=== PATIENT | male | born 1955 | race Caucasian/White ===

== ENCOUNTER 2016-09-30 11:04 | Inpatient (IN) | payer OTHER, MEDICAID ==
--- NOTE | 2016-09-30 11:26 | DR.H&P ---
H&P - History & Physical for Day of: H&P Date: 09/30/16 - Chief Complaint Chief Complaint: ABDOMINAL PAIN, OPEN WOUND DRAINING - Allergies Allergies/Adverse Reactions: Allergies Allergy/AdvReac Type Severity Reaction Status Date / Time MS No Known Drug Allergy Allergy Verified 11/18/13 07:37 [No Known Drug Allergy] - History of Present Illness History of Present Illness: 61 WM DIRECT ADMIT FROM DR HOFFMAN OFFICE WITH CO ABDOMINAL PAIN WITH TWO SMALL ABSCESSES ALONG OLD SURGICAL SCAR. PT HAS TAKEN 2 ROUND OF BACTRIM SINCE JULY WITHOUT IMPROVEMENT. PT HAS PMH OF COPD, DM HTN, CAD , OA, CHF, GERD. PLAN TO ADMIT TO R/O ABDOMINAL WALL ABSCESS, PAIN CONTROL AND IV ATBX THERAPY, BLOOD AND WOUND CULTURES ON ADMISSION - Past Medical History Past Medical History: Angina, Anxiety, Asthma, COPD, Depression, Diabetes, Dyslipidemia, GERD, Hypertension, [place] - Past Surgical History Surgical History: Abdominal Surgery - Family History Family Medical History: Diabetes Mellitus, Cancer, Hypertension - Social History Does patient currently use any type of tobacco product: Yes Have you used tobacco products in the last 12 months: Yes Type of Tobacco Use: Cigarettes Does any household member use tobacco: Yes Alcohol Use: None Drug Use: None - Review of Systems Constitutional: Chills, Sweats, Malaise Eyes: No Symptoms Reported ENT: No Symptoms Reported Respiratory: Wheezing Cardiovascular: No Symptoms Reported Gastrointestinal: Nausea, Abdominal Pain Genitourinary: No Symptoms Reported Musculoskeletal: Back Pain, Leg Pain Skin: Wound Neurological: No Symptoms Reported - Physical Exam Vital Signs: Blood Pressure [Right Arm] 145/76 Blood Pressure 145/76 Oriented: Normal Eyes: Normal Ear: Normal Nose: Normal Throat: Normal Respiratory: RLL Exp. Wheeze, LLL Exp. Wheeze Cardiovascular: Normal, Edema (MILD + 1EDEMA) : Normal Auscultation: Bowel Sounds: Normal Tenderness: Diffuse Skin: Wound ( 2 OPEN WOUNDS MIDLINE ALONG OLD SURGICAL SCAR WITH DIFFUSE REDNESS AND THICK PURULENT DC) Musculoskeletal: Leg, Back:Thoracic, Back:Lumbar Mood Description: Calm Speech Pattern: Clear, Appropriate - Assessment/Plan (1) Abdominal wall abscess Status: Acute Plan: ADMIT, IV ATBX, WOUND AND BLOOD CULTURES. CT ABD PELVIS WITH CONTRAST R/ O DEEP ABDOMINAL WALL ABSCESS. ADMISSION LABS, CXR. IV HYDRATION (2) Abdominal pain Qualifiers: Abdominal location: A Status: Acute (3) COPD (chronic obstructive pulmonary disease) Qualifiers: COPD type: C Chronic bronchitis type: C Emphysema type: E Status: Chronic (4) Diabetes mellitus Qualifiers: Diabetes mellitus type: D Diabetes mellitus complication status: D Diabetes mellitus complication detail: D Diabetic retinopathy severity: D Proliferative retinopathy type: P Diabetes mellitus macular edema: D Diabetes mellitus continuous churn buttermaker insulin use: D Laterality: L Chronic kidney disease stage: C Status: Chronic (5) GERD (gastroesophageal reflux disease) Qualifiers: Esophagitis presence: E Status: Chronic (6) Hyperlipidemia Qualifiers: Hyperlipidemia type: H Status: Chronic (7) Hypertension Qualifiers: Hypertension type: H Status: Chronic
[2016-09-30 12:35] LABS: BASOPHILS # (AUTO) 0.1 X10^3/uL (0.0-0.1); BASOPHILS % (AUTO) 0.8 % (0.2-1.0); EOSINOPHILS # (AUTO) 0.1 x10^3/uL (0.0-0.2); EOSINOPHILS % (AUTO) 1.1 % (0.9-2.9); HEMATOCRIT 42.7 % (42.0-54.0); HEMOGLOBIN 14.8 g/dL (13.5-18.0); LYMPHOCYTES % (AUTO) 18.8 % (21.0-51.0); MEAN CORPUSCULAR HEMOGLOBIN 30.1 pg (27.0-34.0); MEAN CORPUSCULAR HGB CONC 34.8 g/dL (33.0-35.0); MEAN CORPUSCULAR VOLUME 86.6 fL (80.0-100.0); MEAN PLATELET VOLUME 7.9 fL (7.4-11.0); MONOCYTES # (AUTO) 0.8 x10^3/uL (0.3-0.8); MONOCYTES % (AUTO) 7.1 % (0.0-13.0); NEUTROPHILS # (AUTO) 7.8 x10^3/uL (2.2-4.8); NEUTROPHILS % (AUTO) 72.2 % (42.0-75.0); PLATELET COUNT 202 X10^3/uL (150.0-450.0); RED BLOOD COUNT 4.93 X10^6/uL (4.7-6.0); RED CELL DISTRIBUTION WIDTH 14.3 % (11.6-16.5); WHITE BLOOD COUNT 10.8 X10^3/uL (3.6-10.0)
[2016-09-30 12:46] LABS: ALANINE AMINOTRANSFERASE 28 Units/L (12-78); ALBUMIN 3.2 g/dL (3.4-5.0); ALKALINE PHOSPHATASE 87 Units/L (46-116); ASPARTATE AMINO TRANSFERASE 17 Units/L (15-37); BLOOD UREA NITROGEN 13 mg/dL (7-18); CALCIUM 8.7 mg/dL (8.5-10.1); CARBON DIOXIDE 29.4 mmol/L (21-32); CHLORIDE 102 mmol/L (98-107); COR CA(FOR HYPOALB) 9.3 mg/dL (8.5-10.1); COR NA(FOR HYPERGLY) 141 mmol/L (136-145); CREATININE 0.93 mg/dL (0.70-1.30); GLUCOSE 134 mg/dL (65-99); MAGNESIUM 1.5 mg/dL (1.7-2.9); SODIUM 140 mmol/L (136-145); TOTAL PROTEIN 7.4 g/dL (6.4-8.2); eGFR BLACK RACES > 60 (>60); eGFR NON BLACK RACES > 60 (>60)
[2016-09-30 12:56] VITALS: BMI 32.9
[2016-09-30] MEDS ORDERED: NS 100 ML IV 100 ML IV ONE (16:41)
--- NOTE | 2016-09-30 17:33 | RAD ---
HISTORY: CHF, COPD. Study: Portable chest. Comparison: PA and lateral chest dated February 13, 2014. Findings: Patient is status post CABG. The cardiac silhouette otherwise appears normal. Chronic emphysematous changes. No focal consolidation, pleural effusion, or pneumothorax. The osseous structures appear un changed. IMPRESSION: 1. No acute cardiopulmonary disease. Reported By:
[2016-09-30] MEDS: SNACK - Diabetic Appropriate PO SCH (22:19)
[2016-10-01 01:08] LABS: BILIRUBIN,URINE NEGATIVE (NEGATIVE); BLOOD/HEMOGLOBIN,URINE 2+ (NEGATIVE); GLUCOSE, URINE NEGATIVE (NEGATIVE); KETONES,URINE NEGATIVE (NEGATIVE); LEUKOCYTE ESTERASE ,URINE NEGATIVE (NEGATIVE); NITRITES,URINE NEGATIVE (NEGATIVE); PROTEIN,URINE 2+ (NEGATIVE); UROBILINOGEN,URINE 1+ (NORMAL)
[2016-10-01 01:22] LABS: APPEARANCE,URINE CLEAR (CLEAR); BACTERIA,URINE TRACE /HPF (NEGATIVE); COLOR,URINE YELLOW (YELLOW); RBC,URINE 0-3 /HPF (NEGATIVE); SQUAMOUS EPITHELIAL CELL,UR FEW /HPF (NEGATIVE)
[2016-10-01 05:36] LABS: BASOPHILS % (AUTO) 0.9 % (0.2-1.0); EOSINOPHILS % (AUTO) 1.9 % (0.9-2.9); HEMATOCRIT 42.8 % (42.0-54.0); HEMOGLOBIN 14.4 g/dL (13.5-18.0); LYMPHOCYTES % (AUTO) 25.7 % (21.0-51.0); MEAN CORPUSCULAR HEMOGLOBIN 29.9 pg (27.0-34.0); MEAN CORPUSCULAR HGB CONC 33.6 g/dL (33.0-35.0); MEAN PLATELET VOLUME 8.4 fL (7.4-11.0); NEUTROPHILS % (AUTO) 65.5 % (42.0-75.0); PLATELET COUNT 205 X10^3/uL (150.0-450.0); RED BLOOD COUNT 4.81 X10^6/uL (4.7-6.0); RED CELL DISTRIBUTION WIDTH 14.4 % (11.6-16.5); WHITE BLOOD COUNT 11.6 X10^3/uL (3.6-10.0)
[2016-10-01 05:37] LABS: BASOPHILS # (AUTO) 0.1 X10^3/uL (0.0-0.1); EOSINOPHILS # (AUTO) 0.2 x10^3/uL (0.0-0.2); MONOCYTES # (AUTO) 0.7 x10^3/uL (0.3-0.8); NEUTROPHILS # (AUTO) 7.6 x10^3/uL (2.2-4.8)
[2016-10-01 05:43] LABS: ALANINE AMINOTRANSFERASE 26 Units/L (12-78); ALBUMIN 3.1 g/dL (3.4-5.0); ALKALINE PHOSPHATASE 85 Units/L (46-116); ASPARTATE AMINO TRANSFERASE 17 Units/L (15-37); BLOOD UREA NITROGEN 12 mg/dL (7-18); CALCIUM 8.4 mg/dL (8.5-10.1); CARBON DIOXIDE 32.1 mmol/L (21-32); CHLORIDE 101 mmol/L (98-107); COR CA(FOR HYPOALB) 9.1 mg/dL (8.5-10.1); COR NA(FOR HYPERGLY) 141 mmol/L (136-145); CREATININE 0.95 mg/dL (0.70-1.30); GLUCOSE 174 mg/dL (65-99); SODIUM 139 mmol/L (136-145); eGFR BLACK RACES > 60 (>60); eGFR NON BLACK RACES > 60 (>60)
[2016-10-01] MEDS ORDERED: LEVAQUIN PREMIX IV 500 MG 500 MG/100 ML BAG IV ONE (08:36)
[2016-10-01] MEDS ORDERED: ZOFRAN INJ 4 MG VIAL IVP PRN (12:43)
[2016-10-01] MEDS ORDERED: FLEXERIL TAB 10 MG PO PRN (12:49)
[2016-10-01] MEDS ORDERED: AMBIEN PO PRN (12:51)
[2016-10-01] MEDS: HumuLIN R SUBCUT PRN ×3 (13:00→20:20)
[2016-10-01] MEDS ORDERED: NS 100 ML IV + SPIKE MINIBAG* 100 ML IV ONE ×2 (13:14→21:30)
--- NOTE | 2016-10-01 13:14 | CT ---
HISTORY: 61-year-old male with abdominal pain. exam is to evaluate for abdominal wall abscess. Study: CT abdomen and pelvis with contrast Comparison: Abdominal radiograph November 19, 2013 Technique: Multiple axial images of the abdomen and pelvis were obtained from the lung bases to the pubic symph ysis after/ without/ both prior to and after the administration of IV contrast. Dose reduction tech niques including Automated Exposure Control (AEC) and adjustment of mA and kV were utilized. Findings: Visualized lung bases appear clear. There is no significant pleural or pericardial effusion. Mild de generative changes are noted of the imaged thoracolumbar spine. No focal aggressive osseous lesion i s seen. There is a large ventral abdominal wall hernia which contains portions of the stomach, left hepatic lobe as well as multiple nonobstructed loops of large as well as small bowel. No associated fluid co llection is identified. Mild colonic diverticulosis is present. The GI tract is otherwise unremarkab le. The liver, gallbladder, spleen, pancreas (mild fatty atrophy), adrenals and kidneys are unremarkable . There is mild atherosclerotic calcification of the nonaneurysmal aortoiliac system. The urinary bl adder is normal. The prostate is mildly enlarged. There is no free fluid, free air or lymphadenopath y. IMPRESSION: Large ventral abdominal wall hernia containing portions of the left hepatic lobe and multiple loops of large as well as small bowel. There is no current evidence of bowel obstruction/ischemia or assoc iated fluid collection to suggest abscess. Mild prostatomegaly, uncomplicated colonic diverticulosis and additional ancillary findings as detseth led above. Reported By:
[2016-10-01] MEDS: ZOSYN VIAL 3.375 GM IV SCH ×2 (13:48→21:58)
[2016-10-01] MEDS ORDERED: MORPHINE SULFATE INJ 2 MG IVP PRN (14:20)
--- NOTE | 2016-10-01 14:25 | PCM.PROG ---
Progress Note - Progress Note for Day of Date: 10/01/16 - Subjective Subjective: CONTINUE CO ABDOMINAL PAIN WITH SUPERFICIAL ABSCESSES, CULTURE PENDING. PT ON IV ATBX, PT HAD CT SCAN ON ADMISSION REVEALED LARGE COMPLICATED VENTRAL HERNIA, DISCUSSED SURGICAL OPTIONS OP SINCE NOT OBSTRUCTED. WILL CONTINUE IV LEVAQUIN AND ZOSYN, REPEAT AM LABS, D/C PENDING WOUND CULTURE RESULTS - Past Medical Family Social History Past Med/Fam/Surg Hx: No changes since H&P Allergies: Allergies adhesive tape Allergy (Verified 09/30/16 12:08) - Review of Systems ROS: No change since H&P - Vital Signs and I&O's Vital Signs: Temperature 98.3 F Pulse Rate [Right Brachial] 70 Respiratory Rate 20 Blood Pressure [Right Arm] 122/62 Blood Pressure 145/76 O2 Sat by Pulse Oximetry 94 Intake and Output: Intake & Output 09/29/16 09/30/16 10/01/16 10/02/16 11:59 11:59 11:59 11:59 Intake Total 460 Balance 460 - Physical Exam Oriented: Normal Eyes: Normal Ear: Normal Nose: Normal Throat: Normal Cardiovascular: Normal, Edema (MILD + 1EDEMA) : Normal Auscultation: Bowel Sounds: Normal Palpation: Other (LARGE VENTRAL HERNIA) Tenderness: Diffuse Skin: Wound ( 2 OPEN WOUNDS MIDLINE ALONG OLD SURGICAL SCAR WITH DIFFUSE REDNESS AND THICK PURULENT DC) Musculoskeletal: Leg, Back:Thoracic, Back:Lumbar Mood Description: Calm Speech Pattern: Clear, Appropriate - Laboratory and Diagnostics Result Diagrams: 10/01/16 03:05 10/01/16 03:05 Labs: 09/30/16 12:16 Abdomen Gram Stain - Final 09/30/16 12:16 Abdomen Wound Culture - Preliminary Laboratory WBC 11.6 X10^3/uL (3.6-10.0) H 10/01/16 03:05 RBC 4.81 X10^6/uL (4.7-6.0) 10/01/16 03:05 Hgb 14.4 g/dL (13.5-18.0) 10/01/16 03:05 Hct 42.8 % (42.0-54.0) 10/01/16 03:05 MCV 89.0 fL (80.0-100.0) 10/01/16 03:05 MCH 29.9 pg (27.0-34.0) 10/01/16 03:05 MCHC 33.6 g/dL (33.0-35.0) 10/01/16 03:05 RDW 14.4 % (11.6-16.5) 10/01/16 03:05 Plt Count 205 X10^3/uL (150.0-450.0) 10/01/16 03:05 MPV 8.4 fL (7.4-11.0) 10/01/16 03:05 Neut % 65.5 % (42.0-75.0) 10/01/16 03:05 Lymph % 25.7 % (21.0-51.0) 10/01/16 03:05 [place] % 6.0 % (0.0-13.0) 10/01/16 03:05 Eos % 1.9 % (0.9-2.9) 10/01/16 03:05 Baso % 0.9 % (0.2-1.0) 10/01/16 03:05 Neut # 7.6 x10^3/uL (2.2-4.8) H 10/01/16 03:05 Lymph # 3.0 X10^3/uL (1.3-2.9) H 10/01/16 03:05 [place] # 0.7 x10^3/uL (0.3-0.8) 10/01/16 03:05 Eos # 0.2 x10^3/uL (0.0-0.2) 10/01/16 03:05 Baso # 0.1 X10^3/uL (0.0-0.1) 10/01/16 03:05 Absolute Nucleated RBC 0.1 /100WBC 10/01/16 03:05 Sodium 139 mmol/L (136-145) 10/01/16 03:05 Corrected Sodium 141 mmol/L (136-145) 10/01/16 03:05 Potassium 4.2 mmol/L (3.5-5.1) 10/01/16 03:05 Chloride 101 mmol/L (98-107) 10/01/16 03:05 Carbon Dioxide 32.1 mmol/L (21-32) H 10/01/16 03:05 BUN 12 mg/dL (7-18) 10/01/16 03:05 Creatinine 0.95 mg/dL (0.70-1.30) 10/01/16 03:05 Est GFR (MDRD) Af Amer > 60 (>60) 10/01/16 03:05 Est GFR (MDRD) Non-Af > 60 (>60) 10/01/16 03:05 Glucose 174 mg/dL (65-99) H 10/01/16 03:05 Calcium 8.4 mg/dL (8.5-10.1) L 10/01/16 03:05 Corrected Calcium 9.1 mg/dL (8.5-10.1) 10/01/16 03:05 Magnesium 1.5 mg/dL (1.7-2.9) L 09/30/16 12:18 Total Bilirubin 0.50 mg/dL (0.2-1.0) 10/01/16 03:05 AST 17 Units/L (15-37) 10/01/16 03:05 ALT 26 Units/L (12-78) 10/01/16 03:05 Alkaline Phosphatase 85 Units/L (46-116) 10/01/16 03:05 Total Protein 7.0 g/dL (6.4-8.2) 10/01/16 03:05 Albumin 3.1 g/dL (3.4-5.0) L 10/01/16 03:05 Globulin 3.9 g/dL (2.5-4.5) 10/01/16 03:05 Albumin/Globulin Ratio 0.8 Ratio (1.1-2.1) L 10/01/16 03:05 Specimen Type Catherized urine 10/01/16 00:06 Urine Color Yellow (YELLOW) 10/01/16 00:06 Urine Appearance Clear (CLEAR) 10/01/16 00:06 Urine pH 6.0 (5.0 - 8.0) 10/01/16 00:06 Ur Specific [place] 1.015 (1.000-1.030) 10/01/16 00:06 Urine Protein 2+ (NEGATIVE) 10/01/16 00:06 Urine Glucose (UA) Negative (NEGATIVE) 10/01/16 00:06 Urine Ketones Negative (NEGATIVE) 10/01/16 00:06 Urine Occult Blood 2+ (NEGATIVE) 10/01/16 00:06 Urine Nitrite Negative (NEGATIVE) 10/01/16 00:06 Urine Bilirubin Negative (NEGATIVE) 10/01/16 00:06 Urine Urobilinogen 1+ (NORMAL) 10/01/16 00:06 Ur Leukocyte Esterase Negative (NEGATIVE) 10/01/16 00:06 Urine RBC 0-3 /HPF (NEGATIVE) 10/01/16 00:06 Urine WBC 0-3 /HPF (NEGATIVE) 10/01/16 00:06 Ur Squamous Epith Cells Few /HPF (NEGATIVE) 10/01/16 00:06 Urine Bacteria Trace /HPF (NEGATIVE) 10/01/16 00:06 Ur Culture Indicated? Yes/culture set up 10/01/16 00:06 - Plan (1) Abdominal wall abscess Status: Acute Plan: CONTINUE ABDOMINAL WOUND CARE, IV ATBX (2) Abdominal pain Status: Acute Qualifiers: Abdominal location: A Plan: SEE CT REPORT, DISCUSSED SURGICAL REFERRAL (3) COPD (chronic obstructive pulmonary disease) Status: Chronic Qualifiers: COPD type: C Chronic bronchitis type: C Emphysema type: E (4) Diabetes mellitus Status: Chronic Qualifiers: Diabetes mellitus type: D Diabetes mellitus complication status: D Diabetes mellitus complication detail: D Diabetic retinopathy severity: D Proliferative retinopathy type: P Diabetes mellitus macular edema: D Diabetes mellitus fdc insulin use: D Laterality: L Chronic kidney disease stage: C (5) GERD (gastroesophageal reflux disease) Status: Chronic Qualifiers: Esophagitis presence: E (6) Hyperlipidemia Status: Chronic Qualifiers: Hyperlipidemia type: H (7) Hypertension Status: Chronic Qualifiers: Hypertension type: H
[2016-10-01] MEDS: DUONEB 0.5 MG/3 MG NEB SCH ×3 (16:54→20:18)
[2016-10-01] MEDS ORDERED: GLUCOPHAGE ONE (17:54)
[2016-10-01] MEDS: GLUCOPHAGE PO SCH (17:57)
[2016-10-01] MEDS: LIPITOR TAB 40 MG PO SCH (20:18)
[2016-10-01] MEDS: LANTUS SC SCH (20:20)
[2016-10-01] MEDS: SNACK - Diabetic Appropriate PO SCH (21:58)
[2016-10-02] MEDS ORDERED: GLUCOPHAGE ONE ×2 (05:58→17:25)
[2016-10-02] MEDS ORDERED: NS 100 ML IV + SPIKE MINIBAG* 100 ML IV ONE ×3 (05:58→20:30)
[2016-10-02] MEDS: GLUCOTROL PO SCH (06:00)
[2016-10-02] MEDS: ZOSYN VIAL 3.375 GM IV SCH ×3 (06:00→22:14)
[2016-10-02] MEDS: GLUCOPHAGE PO SCH ×2 (06:00→17:54)
[2016-10-02] MEDS: HumuLIN R SUBCUT PRN ×3 (06:07→20:34)
[2016-10-02] MEDS: LANTUS SC SCH ×2 (08:00→20:34)
[2016-10-02] MEDS: ZESTRIL TAB 5 MG PO SCH (08:00)
[2016-10-02] MEDS: FLONASE NASAL SPRAY ENOSTRIL SCH (08:00)
[2016-10-02] MEDS: PriLOSEC PO SCH (08:00)
[2016-10-02] MEDS: ASPIRIN 81 MG CHEWTAB PO SCH (08:00)
[2016-10-02] MEDS: DUONEB 0.5 MG/3 MG NEB SCH ×4 (08:36→20:35)
--- NOTE | 2016-10-02 11:20 | PCM.PROG ---
Progress Note - Progress Note for Day of Date: 10/02/16 - Subjective Subjective: MR. PADILLA IS A PATIENT OF '[place] WHO WAS ADMITTED FROM HIS OFFICE WITH COMPLAINTS OF ABDOMINAL PAIN WITH SUPERFICIAL ABSCESSES.CULTURE ARE PENDING. ABDOMINAL CT SHOWED VENTRAL ABDOMINAL WALL HERNIA WITHOUT OBSTRUCTION. PATIENT ALERT ON SIDE OF BED ON MORNING ROUNDS. VITALS THIS AM 98.1, 71, 18, 94 , 118/73. CBC REPORTS SBC 11.6. WILL CONTINUE IV LEVAQUIN AND ZOSYN, REPEAT AM LABS. - Past Medical Family Social History Past Med/Fam/Surg Hx: No changes since H&P Allergies: Allergies adhesive tape Allergy (Verified 09/30/16 12:08) - Review of Systems ROS: No change since H&P - Vital Signs and I&O's Vital Signs: Temperature 98.1 F Pulse Rate [Right Brachial] 71 Pulse Rate 88 Respiratory Rate 18 Blood Pressure [Right Arm] 118/73 Blood Pressure 145/76 O2 Sat by Pulse Oximetry 94 Intake and Output: Intake & Output 09/29/16 09/30/16 10/01/16 10/02/16 11:59 11:59 11:59 11:59 Intake Total 460 776 Output Total 950 Balance 460 -174 - Physical Exam Oriented: Normal Eyes: Normal Ear: Normal Nose: Normal Throat: Normal Cardiovascular: Normal, Edema (MILD + 1EDEMA) : Normal Auscultation: Bowel Sounds: Normal Palpation: Normal Tenderness: Diffuse Skin: Wound ( 2 OPEN WOUNDS MIDLINE ALONG OLD SURGICAL SCAR WITH DIFFUSE REDNESS AND THICK PURULENT DC) Musculoskeletal: Leg, Back:Thoracic, Back:Lumbar Mood Description: Calm Speech Pattern: Clear, Appropriate - Laboratory and Diagnostics Result Diagrams: 10/01/16 03:05 10/01/16 03:05 Labs: 10/01/16 00:06 Urine,Clean Catch Urine Culture - Preliminary 09/30/16 12:16 Abdomen Gram Stain - Final 09/30/16 12:16 Abdomen Wound Culture - Final Staphylococcus Aureus 09/30/16 12:25 Blood Blood Culture - Preliminary 09/30/16 12:18 Blood Blood Culture - Preliminary Laboratory WBC 11.6 X10^3/uL (3.6-10.0) H 10/01/16 03:05 RBC 4.81 X10^6/uL (4.7-6.0) 10/01/16 03:05 Hgb 14.4 g/dL (13.5-18.0) 10/01/16 03:05 Hct 42.8 % (42.0-54.0) 10/01/16 03:05 MCV 89.0 fL (80.0-100.0) 10/01/16 03:05 MCH 29.9 pg (27.0-34.0) 10/01/16 03:05 MCHC 33.6 g/dL (33.0-35.0) 10/01/16 03:05 RDW 14.4 % (11.6-16.5) 10/01/16 03:05 Plt Count 205 X10^3/uL (150.0-450.0) 10/01/16 03:05 MPV 8.4 fL (7.4-11.0) 10/01/16 03:05 Neut % 65.5 % (42.0-75.0) 10/01/16 03:05 Lymph % 25.7 % (21.0-51.0) 10/01/16 03:05 [place] % 6.0 % (0.0-13.0) 10/01/16 03:05 Eos % 1.9 % (0.9-2.9) 10/01/16 03:05 Baso % 0.9 % (0.2-1.0) 10/01/16 03:05 Neut # 7.6 x10^3/uL (2.2-4.8) H 10/01/16 03:05 Lymph # 3.0 X10^3/uL (1.3-2.9) H 10/01/16 03:05 [place] # 0.7 x10^3/uL (0.3-0.8) 10/01/16 03:05 Eos # 0.2 x10^3/uL (0.0-0.2) 10/01/16 03:05 Baso # 0.1 X10^3/uL (0.0-0.1) 10/01/16 03:05 Absolute Nucleated RBC 0.1 /100WBC 10/01/16 03:05 Sodium 139 mmol/L (136-145) 10/01/16 03:05 Corrected Sodium 141 mmol/L (136-145) 10/01/16 03:05 Potassium 4.2 mmol/L (3.5-5.1) 10/01/16 03:05 Chloride 101 mmol/L (98-107) 10/01/16 03:05 Carbon Dioxide 32.1 mmol/L (21-32) H 10/01/16 03:05 BUN 12 mg/dL (7-18) 10/01/16 03:05 Creatinine 0.95 mg/dL (0.70-1.30) 10/01/16 03:05 Est GFR (MDRD) Af Amer > 60 (>60) 10/01/16 03:05 Est GFR (MDRD) Non-Af > 60 (>60) 10/01/16 03:05 Glucose 174 mg/dL (65-99) H 10/01/16 03:05 Calcium 8.4 mg/dL (8.5-10.1) L 10/01/16 03:05 Corrected Calcium 9.1 mg/dL (8.5-10.1) 10/01/16 03:05 Magnesium 1.5 mg/dL (1.7-2.9) L 09/30/16 12:18 Total Bilirubin 0.50 mg/dL (0.2-1.0) 10/01/16 03:05 AST 17 Units/L (15-37) 10/01/16 03:05 ALT 26 Units/L (12-78) 10/01/16 03:05 Alkaline Phosphatase 85 Units/L (46-116) 10/01/16 03:05 Total Protein 7.0 g/dL (6.4-8.2) 10/01/16 03:05 Albumin 3.1 g/dL (3.4-5.0) L 10/01/16 03:05 Globulin 3.9 g/dL (2.5-4.5) 10/01/16 03:05 Albumin/Globulin Ratio 0.8 Ratio (1.1-2.1) L 10/01/16 03:05 Specimen Type Catherized urine 10/01/16 00:06 Urine Color Yellow (YELLOW) 10/01/16 00:06 Urine Appearance Clear (CLEAR) 10/01/16 00:06 Urine pH 6.0 (5.0 - 8.0) 10/01/16 00:06 Ur Specific [place] 1.015 (1.000-1.030) 10/01/16 00:06 Urine Protein 2+ (NEGATIVE) 10/01/16 00:06 Urine Glucose (UA) Negative (NEGATIVE) 10/01/16 00:06 Urine Ketones Negative (NEGATIVE) 10/01/16 00:06 Urine Occult Blood 2+ (NEGATIVE) 10/01/16 00:06 Urine Nitrite Negative (NEGATIVE) 10/01/16 00:06 Urine Bilirubin Negative (NEGATIVE) 10/01/16 00:06 Urine Urobilinogen 1+ (NORMAL) 10/01/16 00:06 Ur Leukocyte Esterase Negative (NEGATIVE) 10/01/16 00:06 Urine RBC 0-3 /HPF (NEGATIVE) 10/01/16 00:06 Urine WBC 0-3 /HPF (NEGATIVE) 10/01/16 00:06 Ur Squamous Epith Cells Few /HPF (NEGATIVE) 10/01/16 00:06 Urine Bacteria Trace /HPF (NEGATIVE) 10/01/16 00:06 Ur Culture Indicated? Yes/culture set up 10/01/16 00:06 - Plan (1) Ventral hernia without obstruction or gangrene Status: Acute Plan: CONTINUE TO MONITOR (2) Abdominal pain Status: Acute Qualifiers: Abdominal location: A Plan: SEE CT REPORT, DISCUSSED SURGICAL REFERRAL
[2016-10-02] MEDS: SNACK - Diabetic Appropriate PO SCH (20:33)
[2016-10-02] MEDS: LIPITOR TAB 40 MG PO SCH (20:33)
[2016-10-03] MEDS ORDERED: GLUCOPHAGE ONE ×2 (05:33→17:54)
[2016-10-03] MEDS ORDERED: NS 100 ML IV + SPIKE MINIBAG* 100 ML IV ONE ×2 (05:34→21:23)
[2016-10-03 05:41] LABS: ALANINE AMINOTRANSFERASE 25 Units/L (12-78); ALKALINE PHOSPHATASE 79 Units/L (46-116); ASPARTATE AMINO TRANSFERASE 19 Units/L (15-37); BLOOD UREA NITROGEN 21 mg/dL (7-18); CALCIUM 8.8 mg/dL (8.5-10.1); CARBON DIOXIDE 29.8 mmol/L (21-32); CHLORIDE 106 mmol/L (98-107); COR CA(FOR HYPOALB) 9.6 mg/dL (8.5-10.1); COR NA(FOR HYPERGLY) 145 mmol/L (136-145); CREATININE 1.13 mg/dL (0.70-1.30); GLUCOSE 169 mg/dL (65-99); SODIUM 143 mmol/L (136-145); TOTAL PROTEIN 6.9 g/dL (6.4-8.2); eGFR BLACK RACES > 60 (>60); eGFR NON BLACK RACES > 60 (>60)
[2016-10-03] MEDS: ZOSYN VIAL 3.375 GM IV SCH ×3 (05:43→21:19)
[2016-10-03] MEDS: GLUCOPHAGE PO SCH ×2 (06:12→18:08)
[2016-10-03] MEDS: GLUCOTROL PO SCH (06:12)
[2016-10-03 06:57] LABS: BASOPHILS # (AUTO) 0.1 X10^3/uL (0.0-0.1); BASOPHILS % (AUTO) 0.9 % (0.2-1.0); EOSINOPHILS # (AUTO) 0.2 x10^3/uL (0.0-0.2); EOSINOPHILS % (AUTO) 2.1 % (0.9-2.9); HEMATOCRIT 41.3 % (42.0-54.0); HEMOGLOBIN 14.1 g/dL (13.5-18.0); LYMPHOCYTES % (AUTO) 20.8 % (21.0-51.0); MEAN CORPUSCULAR HGB CONC 34.2 g/dL (33.0-35.0); MEAN CORPUSCULAR VOLUME 87.9 fL (80.0-100.0); MEAN PLATELET VOLUME 7.9 fL (7.4-11.0); MONOCYTES # (AUTO) 0.6 x10^3/uL (0.3-0.8); MONOCYTES % (AUTO) 6.1 % (0.0-13.0); NEUTROPHILS # (AUTO) 6.8 x10^3/uL (2.2-4.8); NEUTROPHILS % (AUTO) 70.1 % (42.0-75.0); PLATELET COUNT 192 X10^3/uL (150.0-450.0); RED CELL DISTRIBUTION WIDTH 14.4 % (11.6-16.5); WHITE BLOOD COUNT 9.7 X10^3/uL (3.6-10.0)
[2016-10-03] MEDS: DUONEB 0.5 MG/3 MG NEB SCH ×4 (07:59→20:41)
[2016-10-03] MEDS: FLONASE NASAL SPRAY ENOSTRIL SCH (09:34)
[2016-10-03] MEDS: LANTUS SC SCH ×2 (09:35→21:20)
[2016-10-03] MEDS: ASPIRIN 81 MG CHEWTAB PO SCH (09:36)
[2016-10-03] MEDS: PriLOSEC PO SCH (09:36)
[2016-10-03] MEDS: ZESTRIL TAB 5 MG PO SCH (09:36)
--- NOTE | 2016-10-03 11:04 | PCM.PROG ---
Progress Note - Progress Note for Day of Date: 10/03/16 - Subjective Subjective: MR. PADILLA IS A PATIENT OF '[place] WHO WAS ADMITTED FROM HIS OFFICE WITH COMPLAINTS OF ABDOMINAL PAIN WITH SUPERFICIAL ABSCESSES. ABDOMINAL CT SHOWED VENTRAL ABDOMINAL WALL HERNIA WITHOUT OBSTRUCTION. PATIENT ALERT ON SIDE OF BED ON MORNING ROUNDS. VITALS THIS AM 98.3, 74, 20, 98, 126/65. CBC REPORTS WBC 9.7. CMP REPORTS CRP 10.5, ALBUMIN 3.0. ABDOMINAL WOUND CULTURE REPORTS STAPHYLOCOCCUS AUREUS. WILL CONTINUE IV LEVAQUIN AND ZOSYN. WE WILL START WARM COMPRESSES AND GENTAMICIN TO WOUND. RECHECK LABS AND FOLLOW UP WITH PATIENT IN AM. - Past Medical Family Social History Past Med/Fam/Surg Hx: No changes since H&P Allergies: Allergies adhesive tape Allergy (Verified 09/30/16 12:08) - Review of Systems ROS: No change since H&P - Vital Signs and I&O's Vital Signs: Temperature 98.3 F Pulse Rate [Right Brachial] 74 Pulse Rate 85 Respiratory Rate 20 Blood Pressure [Right Arm] 126/65 Blood Pressure 145/76 O2 Sat by Pulse Oximetry 98 Intake and Output: Intake & Output 09/30/16 10/01/16 10/02/16 10/03/16 11:59 11:59 11:59 11:59 Intake Total 824 995 9600 Output Total 950 Balance 460 -174 1020 - Physical Exam Oriented: Normal Eyes: Normal Ear: Normal Nose: Normal Throat: Normal Cardiovascular: Normal, Edema (MILD + 1EDEMA) : Normal Auscultation: Bowel Sounds: Normal Palpation: Normal Tenderness: Diffuse Skin: Wound ( 2 OPEN WOUNDS MIDLINE ALONG OLD SURGICAL SCAR WITH DIFFUSE REDNESS AND THICK PURULENT DC) Musculoskeletal: Leg, Back:Thoracic, Back:Lumbar Mood Description: Calm Speech Pattern: Clear, Appropriate - Laboratory and Diagnostics Result Diagrams: 10/03/16 05:05 10/03/16 05:05 Labs: 10/01/16 00:06 Urine,Clean Catch Urine Culture - Final 09/30/16 12:16 Abdomen Gram Stain - Final 09/30/16 12:16 Abdomen Wound Culture - Final Staphylococcus Aureus 09/30/16 12:25 Blood Blood Culture - Preliminary 09/30/16 12:18 Blood Blood Culture - Preliminary Laboratory WBC 9.7 X10^3/uL (3.6-10.0) 10/03/16 05:05 RBC 4.70 X10^6/uL (4.7-6.0) 10/03/16 05:05 Hgb 14.1 g/dL (13.5-18.0) 10/03/16 05:05 Hct 41.3 % (42.0-54.0) L 10/03/16 05:05 MCV 87.9 fL (80.0-100.0) 10/03/16 05:05 MCH 30.0 pg (27.0-34.0) 10/03/16 05:05 MCHC 34.2 g/dL (33.0-35.0) 10/03/16 05:05 RDW 14.4 % (11.6-16.5) 10/03/16 05:05 Plt Count 192 X10^3/uL (150.0-450.0) 10/03/16 05:05 MPV 7.9 fL (7.4-11.0) 10/03/16 05:05 Neut % 70.1 % (42.0-75.0) 10/03/16 05:05 Lymph % 20.8 % (21.0-51.0) L 10/03/16 05:05 [place] % 6.1 % (0.0-13.0) 10/03/16 05:05 Eos % 2.1 % (0.9-2.9) 10/03/16 05:05 Baso % 0.9 % (0.2-1.0) 10/03/16 05:05 Neut # 6.8 x10^3/uL (2.2-4.8) H 10/03/16 05:05 Lymph # 2.0 X10^3/uL (1.3-2.9) 10/03/16 05:05 [place] # 0.6 x10^3/uL (0.3-0.8) 10/03/16 05:05 Eos # 0.2 x10^3/uL (0.0-0.2) 10/03/16 05:05 Baso # 0.1 X10^3/uL (0.0-0.1) 10/03/16 05:05 Absolute Nucleated RBC 0.0 /100WBC 10/03/16 05:05 Sodium 143 mmol/L (136-145) 10/03/16 05:05 Corrected Sodium 145 mmol/L (136-145) 10/03/16 05:05 Potassium 4.9 mmol/L (3.5-5.1) 10/03/16 05:05 Chloride 106 mmol/L (98-107) 10/03/16 05:05 Carbon Dioxide 29.8 mmol/L (21-32) 10/03/16 05:05 BUN 21 mg/dL (7-18) H 10/03/16 05:05 Creatinine 1.13 mg/dL (0.70-1.30) 10/03/16 05:05 Est GFR (MDRD) Af Amer > 60 (>60) 10/03/16 05:05 Est GFR (MDRD) Non-Af > 60 (>60) 10/03/16 05:05 Glucose 169 mg/dL (65-99) H 10/03/16 05:05 Calcium 8.8 mg/dL (8.5-10.1) 10/03/16 05:05 Corrected Calcium 9.6 mg/dL (8.5-10.1) 10/03/16 05:05 Magnesium 1.5 mg/dL (1.7-2.9) L 09/30/16 12:18 Total Bilirubin 0.50 mg/dL (0.2-1.0) 10/03/16 05:05 AST 19 Units/L (15-37) 10/03/16 05:05 ALT 25 Units/L (12-78) 10/03/16 05:05 Alkaline Phosphatase 79 Units/L (46-116) 10/03/16 05:05 C-Reactive Protein 10.50 mg/L (0-3.0) H 10/03/16 05:05 Total Protein 6.9 g/dL (6.4-8.2) 10/03/16 05:05 Albumin 3.0 g/dL (3.4-5.0) L 10/03/16 05:05 Globulin 3.9 g/dL (2.5-4.5) 10/03/16 05:05 Albumin/Globulin Ratio 0.8 Ratio (1.1-2.1) L 10/03/16 05:05 Specimen Type Catherized urine 10/01/16 00:06 Urine Color Yellow (YELLOW) 10/01/16 00:06 Urine Appearance Clear (CLEAR) 10/01/16 00:06 Urine pH 6.0 (5.0 - 8.0) 10/01/16 00:06 Ur Specific [place] 1.015 (1.000-1.030) 10/01/16 00:06 Urine Protein 2+ (NEGATIVE) 10/01/16 00:06 Urine Glucose (UA) Negative (NEGATIVE) 10/01/16 00:06 Urine Ketones Negative (NEGATIVE) 10/01/16 00:06 Urine Occult Blood 2+ (NEGATIVE) 10/01/16 00:06 Urine Nitrite Negative (NEGATIVE) 10/01/16 00:06 Urine Bilirubin Negative (NEGATIVE) 10/01/16 00:06 Urine Urobilinogen 1+ (NORMAL) 10/01/16 00:06 Ur Leukocyte Esterase Negative (NEGATIVE) 10/01/16 00:06 Urine RBC 0-3 /HPF (NEGATIVE) 10/01/16 00:06 Urine WBC 0-3 /HPF (NEGATIVE) 10/01/16 00:06 Ur Squamous Epith Cells Few /HPF (NEGATIVE) 10/01/16 00:06 Urine Bacteria Trace /HPF (NEGATIVE) 10/01/16 00:06 Ur Culture Indicated? Yes/culture set up 10/01/16 00:06 - Plan (1) Ventral hernia without obstruction or gangrene Status: Acute Plan: CONTINUE TO MONITOR (2) Abdominal pain Status: Acute Qualifiers: Abdominal location: A Plan: SEE CT REPORT, DISCUSSED SURGICAL REFERRAL
[2016-10-03] MEDS ORDERED: NS 100 ML IV 100 ML IV ONE (14:02)
[2016-10-03] MEDS: NORCO 10/325 TAB PO PRN (14:18)
[2016-10-03] MEDS: GENTAMICIN TOPICAL CRM TOP SCH ×2 (15:30→21:21)
[2016-10-03] MEDS: SNACK - Diabetic Appropriate PO SCH (21:19)
[2016-10-03] MEDS: LIPITOR TAB 40 MG PO SCH (21:20)
[2016-10-04] MEDS: NORCO 10/325 TAB PO PRN (03:31)
[2016-10-04 05:34] LABS: BASOPHILS # (AUTO) 0.1 X10^3/uL (0.0-0.1); BASOPHILS % (AUTO) 0.8 % (0.2-1.0); EOSINOPHILS # (AUTO) 0.2 x10^3/uL (0.0-0.2); EOSINOPHILS % (AUTO) 2.7 % (0.9-2.9); HEMATOCRIT 40.9 % (42.0-54.0); HEMOGLOBIN 13.9 g/dL (13.5-18.0); LYMPHOCYTES # (AUTO) 2.5 X10^3/uL (1.3-2.9); LYMPHOCYTES % (AUTO) 27.7 % (21.0-51.0); MEAN CORPUSCULAR HEMOGLOBIN 30.2 pg (27.0-34.0); MEAN CORPUSCULAR VOLUME 88.7 fL (80.0-100.0); MEAN PLATELET VOLUME 8.4 fL (7.4-11.0); MONOCYTES # (AUTO) 0.5 x10^3/uL (0.3-0.8); MONOCYTES % (AUTO) 5.8 % (0.0-13.0); NEUTROPHILS # (AUTO) 5.7 x10^3/uL (2.2-4.8); PLATELET COUNT 190 X10^3/uL (150.0-450.0); RED BLOOD COUNT 4.61 X10^6/uL (4.7-6.0); RED CELL DISTRIBUTION WIDTH 14.3 % (11.6-16.5); WHITE BLOOD COUNT 9.1 X10^3/uL (3.6-10.0)
[2016-10-04 05:35] LABS: ALANINE AMINOTRANSFERASE 24 Units/L (12-78); ALBUMIN 2.9 g/dL (3.4-5.0); ALKALINE PHOSPHATASE 76 Units/L (46-116); ASPARTATE AMINO TRANSFERASE 15 Units/L (15-37); BLOOD UREA NITROGEN 22 mg/dL (7-18); CALCIUM 8.6 mg/dL (8.5-10.1); CARBON DIOXIDE 30.1 mmol/L (21-32); CHLORIDE 105 mmol/L (98-107); COR CA(FOR HYPOALB) 9.5 mg/dL (8.5-10.1); COR NA(FOR HYPERGLY) 144 mmol/L (136-145); CREATININE 1.03 mg/dL (0.70-1.30); GLUCOSE 160 mg/dL (65-99); SODIUM 143 mmol/L (136-145); TOTAL PROTEIN 6.8 g/dL (6.4-8.2); eGFR BLACK RACES > 60 (>60); eGFR NON BLACK RACES > 60 (>60)
[2016-10-04] MEDS ORDERED: GLUCOPHAGE ONE (05:37)
[2016-10-04] MEDS ORDERED: NS 100 ML IV + SPIKE MINIBAG* 100 ML IV ONE (05:38)
[2016-10-04] MEDS: ZOSYN VIAL 3.375 GM IV SCH (06:04)
[2016-10-04] MEDS: GLUCOTROL PO SCH (06:06)
[2016-10-04] MEDS: GLUCOPHAGE PO SCH (06:07)
[2016-10-04] MEDS: DUONEB 0.5 MG/3 MG NEB SCH (08:01)
[2016-10-04 08:09] VITALS: BP 128/67
[2016-10-04] MEDS: LANTUS SC SCH (09:14)
[2016-10-04] MEDS: FLONASE NASAL SPRAY ENOSTRIL SCH (09:16)
[2016-10-04] MEDS: ZESTRIL TAB 5 MG PO SCH (09:16)
[2016-10-04] MEDS: ASPIRIN 81 MG CHEWTAB PO SCH (09:16)
[2016-10-04] MEDS: PriLOSEC PO SCH (09:16)
[2016-10-04] MEDS: GENTAMICIN TOPICAL CRM TOP SCH (11:05)
--- NOTE | 2016-10-04 14:07 | PCM.DCPLAN ---
Discharge Summary - Admission Date Date of Admission: 09/30/16 - Discharge Date Discharge Date: 10/04/16 - Admission Diagnoses (1) Abdominal wall abscess Status: Acute (2) Abdominal pain Status: Acute (3) COPD (chronic obstructive pulmonary disease) Status: Chronic (4) Diabetes mellitus Status: Chronic (5) GERD (gastroesophageal reflux disease) Status: Chronic (6) Hyperlipidemia Status: Chronic (7) Hypertension Status: Chronic - Discharge Diagnoses Discharge Diagnosis: SAME ADMISSION - Discharge Medications Discharge Medications: Aspirin [ASPIRIN 81 MG [place] *] 81 mg PO DAILY 09/30/16 [History] Atorvastatin Calcium 80 mg PO HS 09/30/16 [History] Cyclobenzaprine HCl 10 mg PO Q8H PRN 09/30/16 [History] Fluticasone Nasal [place] [FLONASE NASAL SPRAY *] 1 spray ENOSTRIL DAILY 09/30/16 [History] Glipizide [Glipizide 10 mg] 10 mg PO DAILY 09/30/16 [History] Hydrocodone/Acetaminophen [Hydrocodon-Acetaminophn 10-325] 1 tab PO Q8H PRN 09/11 [History] Insulin Glargine (Lantus) [LANTUS INSULIN 10 ML VIAL *] 60 units SC BID [History] Metformin HCl 1,000 mg PO BID 09/30/16 [History] Sulfamethoxazole/Trimethoprim [Sulfamethoxazole-Tmp Ds Tablet] 1 tab PO BID 09/11 [History] Zolpidem Tartrate 5 mg PO HS PRN 09/30/16 [History] Rifampin 300 mg PO TID #30 capsule 10/04/16 [Rx] - Hospital Course Vital Signs: Temperature 97.5 F Pulse Rate [Right Brachial] 79 Pulse Rate 88 Respiratory Rate 20 Blood Pressure [Right Arm] 128/67 Blood Pressure 145/76 O2 Sat by Pulse Oximetry 92 Latest Lab Results: Laboratory Last Values WBC 9.1 X10^3/uL (3.6-10.0) 10/04/16 03:15 RBC 4.61 X10^6/uL (4.7-6.0) L 10/04/16 03:15 Hgb 13.9 g/dL (13.5-18.0) 10/04/16 03:15 Hct 40.9 % (42.0-54.0) L 10/04/16 03:15 MCV 88.7 fL (80.0-100.0) 10/04/16 03:15 MCH 30.2 pg (27.0-34.0) 10/04/16 03:15 MCHC 34.0 g/dL (33.0-35.0) 10/04/16 03:15 RDW 14.3 % (11.6-16.5) 10/04/16 03:15 Plt Count 190 X10^3/uL (150.0-450.0) 10/04/16 03:15 MPV 8.4 fL (7.4-11.0) 10/04/16 03:15 Neut % 63.0 % (42.0-75.0) 10/04/16 03:15 Lymph % 27.7 % (21.0-51.0) 10/04/16 03:15 [place] % 5.8 % (0.0-13.0) 10/04/16 03:15 Eos % 2.7 % (0.9-2.9) 10/04/16 03:15 Baso % 0.8 % (0.2-1.0) 10/04/16 03:15 Neut # 5.7 x10^3/uL (2.2-4.8) H 10/04/16 03:15 Lymph # 2.5 X10^3/uL (1.3-2.9) 10/04/16 03:15 [place] # 0.5 x10^3/uL (0.3-0.8) 10/04/16 03:15 Eos # 0.2 x10^3/uL (0.0-0.2) 10/04/16 03:15 Baso # 0.1 X10^3/uL (0.0-0.1) 10/04/16 03:15 Absolute Nucleated RBC 0.1 /100WBC 10/04/16 03:15 Sodium 143 mmol/L (136-145) 10/04/16 03:15 Corrected Sodium 144 mmol/L (136-145) 10/04/16 03:15 Potassium 4.2 mmol/L (3.5-5.1) 10/04/16 03:15 Chloride 105 mmol/L (98-107) 10/04/16 03:15 Carbon Dioxide 30.1 mmol/L (21-32) 10/04/16 03:15 BUN 22 mg/dL (7-18) H 10/04/16 03:15 Creatinine 1.03 mg/dL (0.70-1.30) 10/04/16 03:15 Est GFR (MDRD) Af Amer > 60 (>60) 10/04/16 03:15 Est GFR (MDRD) Non-Af > 60 (>60) 10/04/16 03:15 Glucose 160 mg/dL (65-99) H 10/04/16 03:15 Calcium 8.6 mg/dL (8.5-10.1) 10/04/16 03:15 Corrected Calcium 9.5 mg/dL (8.5-10.1) 10/04/16 03:15 Magnesium 1.5 mg/dL (1.7-2.9) L 09/30/16 12:18 Total Bilirubin 0.40 mg/dL (0.2-1.0) 10/04/16 03:15 AST 15 Units/L (15-37) 10/04/16 03:15 ALT 24 Units/L (12-78) 10/04/16 03:15 Alkaline Phosphatase 76 Units/L (46-116) 10/04/16 03:15 C-Reactive Protein 8.90 mg/L (0-3.0) H 10/04/16 03:15 Total Protein 6.8 g/dL (6.4-8.2) 10/04/16 03:15 Albumin 2.9 g/dL (3.4-5.0) L 10/04/16 03:15 Globulin 3.9 g/dL (2.5-4.5) 10/04/16 03:15 Albumin/Globulin Ratio 0.7 Ratio (1.1-2.1) L 10/04/16 03:15 Specimen Type Catherized urine 10/01/16 00:06 Urine Color Yellow (YELLOW) 10/01/16 00:06 Urine Appearance Clear (CLEAR) 10/01/16 00:06 Urine pH 6.0 (5.0 - 8.0) 10/01/16 00:06 Ur Specific [place] 1.015 (1.000-1.030) 10/01/16 00:06 Urine Protein 2+ (NEGATIVE) 10/01/16 00:06 Urine Glucose (UA) Negative (NEGATIVE) 10/01/16 00:06 Urine Ketones Negative (NEGATIVE) 10/01/16 00:06 Urine Occult Blood 2+ (NEGATIVE) 10/01/16 00:06 Urine Nitrite Negative (NEGATIVE) 10/01/16 00:06 Urine Bilirubin Negative (NEGATIVE) 10/01/16 00:06 Urine Urobilinogen 1+ (NORMAL) 10/01/16 00:06 Ur Leukocyte Esterase Negative (NEGATIVE) 10/01/16 00:06 Urine RBC 0-3 /HPF (NEGATIVE) 10/01/16 00:06 Urine WBC 0-3 /HPF (NEGATIVE) 10/01/16 00:06 Ur Squamous Epith Cells Few /HPF (NEGATIVE) 10/01/16 00:06 Urine Bacteria Trace /HPF (NEGATIVE) 10/01/16 00:06 Ur Culture Indicated? Yes/culture set up 10/01/16 00:06 Hospital Course: Patient is a 61-year-old white male who was a direct admit from Dr. Burnett's office on 7C6. Patient had open abdominal wounds along previous surgical abdominal scars. Patient was admitted due to increased abdominal pain and failure to improve with outpatient therapy for cellulitis. His white count on admission was 10 8 this morning it was 9.[address] scan of the abdomen and pelvis on admission which was negative for deep wall abscess however revealed a large ventral complicated hernia. Patient had wound cultures which grew out MRSA. Patient was treated with IV antibiotics over the weekend patient complains improved as far as localized redness still mild purulent discharged. Patient was discharged home today on rifampin and was instructed to continue wound care. Patient referred to general as outpatient for hernia consult. Patient instructed to resume home medication for blood pressure lipid M diabetes control. Patient instructed to quit smoking. Patient instructed to follow-up with Dr. Burnett in one week or return to the emergency room if pain or condition worsened or changed unexpectedly patient verbalized understanding and will be discharged home by private vehicle - Discharge Plan Disposition: HOME, SELF-CARE Condition: Stable Prescriptions: Rifampin 300 mg PO TID #30 capsule - Follow ups/Referrals Follow ups/Referrals: ELHAM MADSEN [Nurse Practitioner] - 10/11/16 2:15 pm - Instructions Instructions: Type 2 Diabetes Mellitus, Adult, Shortness of Breath, Easy-to- Read, Rifampin capsules, Abscess, [id number], Chronic Obstructive Pulmonary Disease, [id number], Abdominal Pain, Adult, [id number], Hypertension, Easy- to-Read, Chest Pain Observation Additional Instructions: resume home meds will refer outpt to Dr Buenrostro for hernia repair consult increase po water intake bp and blood sugar control follow up with dr burnett in one week \rifampin for wound infection Forms: Patient Portal
== END 2016-10-04 12:15 | disposition home or self-care (01) | DRG 373 ==
LOC: UNDOADMIN 11:04 → MED/SURG 11:04
PROVIDERS: ADMIT Internal Medicine; ATTEND Internal Medicine
DX: K65.1 Peritoneal abscess (principal); J44.9 Chronic obstructive pulmonary disease, unspecified; E11.65 Type 2 diabetes mellitus with hyperglycemia; I10 Essential (primary) hypertension; I25.10 Atherosclerotic heart disease of native coronary artery without angina pectoris; K21.9 Gastro-esophageal reflux disease without esophagitis; R10.84 Generalized abdominal pain; E78.2 Mixed hyperlipidemia; K43.9 Ventral hernia without obstruction or gangrene; R26.89 Other abnormalities of gait and mobility; Z79.4 Long term (current) use of insulin; B95.62 Methicillin resistant Staphylococcus aureus infection as the cause of diseases classified elsewhere
CPT/HCPCS: 36415; 71010; 74177; 80053; 81001; 83735; 85025; 86140; 87040; 87070; 87075; 87077; 87086; 87186; 87205; 94640; 94760; A4222; J1815; J1956; J2270; J2405; J2543; J7620

== ENCOUNTER → 2016-10-27 | Outpatient (CLI) | payer OTHER, MEDICAID ==
[2016-10-04 08:09] VITALS: BP 128/67
[2016-10-27 13:27] LABS: BASOPHILS # (AUTO) 0.1 X10^3/uL (0.0-0.1); BASOPHILS % (AUTO) 0.9 % (0.2-1.0); EOSINOPHILS # (AUTO) 0.3 x10^3/uL (0.0-0.2); EOSINOPHILS % (AUTO) 3.3 % (0.9-2.9); HEMATOCRIT 44.1 % (42.0-54.0); HEMOGLOBIN 15.2 g/dL (13.5-18.0); LYMPHOCYTES # (AUTO) 2.9 X10^3/uL (1.3-2.9); LYMPHOCYTES % (AUTO) 28.9 % (21.0-51.0); MEAN CORPUSCULAR HEMOGLOBIN 30.3 pg (27.0-34.0); MEAN CORPUSCULAR HGB CONC 34.5 g/dL (33.0-35.0); MEAN CORPUSCULAR VOLUME 87.7 fL (80.0-100.0); MEAN PLATELET VOLUME 8.2 fL (7.4-11.0); MONOCYTES # (AUTO) 0.6 x10^3/uL (0.3-0.8); MONOCYTES % (AUTO) 5.9 % (0.0-13.0); NEUTROPHILS # (AUTO) 6.2 x10^3/uL (2.2-4.8); PLATELET COUNT 189 X10^3/uL (150.0-450.0); RED BLOOD COUNT 5.03 X10^6/uL (4.7-6.0); RED CELL DISTRIBUTION WIDTH 13.9 % (11.6-16.5); WHITE BLOOD COUNT 10.1 X10^3/uL (3.6-10.0)
[2016-10-27 13:40] LABS: ALANINE AMINOTRANSFERASE 25 Units/L (12-78); ALBUMIN 3.2 g/dL (3.4-5.0); ALKALINE PHOSPHATASE 77 Units/L (46-116); ASPARTATE AMINO TRANSFERASE 14 Units/L (15-37); BLOOD UREA NITROGEN 16 mg/dL (7-18); CALCIUM 8.8 mg/dL (8.5-10.1); CHLORIDE 103 mmol/L (98-107); COR CA(FOR HYPOALB) 9.4 mg/dL (8.5-10.1); COR NA(FOR HYPERGLY) 142 mmol/L (136-145); CREATININE 0.99 mg/dL (0.70-1.30); GLUCOSE 193 mg/dL (65-99); SODIUM 140 mmol/L (136-145); TOTAL PROTEIN 7.5 g/dL (6.4-8.2); eGFR BLACK RACES > 60 (>60); eGFR NON BLACK RACES > 60 (>60)
--- NOTE | 2016-10-27 13:40 | RAD ---
HISTORY: Preop hernia repair Study: Chest two-view Comparison: September 30, 2016 Findings: The patient is status post median sternotomy and CABG. The heart is within normal limits in size. Th e génesis are normal. The lungs are hyperinflated but free of acute alveolar infiltrates. No pleural ef fusions are identified. The bony thorax is unremarkable. IMPRESSION: Lungs hyperinflated but clear, consistent with COPD in the appropriate clinical setting Reported By:
== END ==
LOC: LAB 13:06
PROVIDERS: ATTEND Nurse Practitioner Family
DX: Z01.818 Encounter for other preprocedural examination (principal); Z01.811 Encounter for preprocedural respiratory examination; R06.02 Shortness of breath; J44.9 Chronic obstructive pulmonary disease, unspecified; I50.9 Heart failure, unspecified; I10 Essential (primary) hypertension; K43.9 Ventral hernia without obstruction or gangrene
CPT/HCPCS: 36415; 71020; 80053; 85025

== ENCOUNTER → 2016-11-18 | Outpatient (CLI) | payer OTHER, MEDICAID | LOC: RAD 15:44 | PROVIDERS: ATTEND Internal Medicine Cardiovascular Disease | DX: Z01.818 Encounter for other preprocedural examination (principal); I10 Essential (primary) hypertension; I25.10 Atherosclerotic heart disease of native coronary artery without angina pectoris; R53.83 Other fatigue; R06.09 Other forms of dyspnea; R06.02 Shortness of breath; E11.9 Type 2 diabetes mellitus without complications; E78.4 Other hyperlipidemia | CPT/HCPCS: 93306 ==

== ENCOUNTER → 2016-12-13 | Outpatient (CLI) | payer OTHER, MEDICAID ==
[~2016-12-13] MED LIST: LEXISCAN IV ONE
== END ==
LOC: RAD 09:08
PROVIDERS: ATTEND Physician Assistant
DX: Z01.818 Encounter for other preprocedural examination (principal); I25.10 Atherosclerotic heart disease of native coronary artery without angina pectoris
CPT/HCPCS: 78452; 93017; A4222; A9502; J2785

== ENCOUNTER → 2017-03-24 | Outpatient (CLI) | payer OTHER, MEDICAID ==
--- NOTE | 2017-03-24 11:32 | RAD ---
Indication: Shortness of breath . Exam: PA and lateral Comparison: 10/27/2016 Findings: The heart is normal. The pulmonary vessels are normal. The lungs are mildly hyperinflated w ith mild linear scarring along the lung bases which is unchanged. No consolidation or effusion is see n. There are postop changes along the mediastinum and sternum. The bones are intact. Impression: Stable chronic changes with no acute abnormality seen. Reported By:
== END ==
LOC: RAD 10:54
PROVIDERS: ATTEND Internal Medicine Pulmonary Disease
DX: R06.02 Shortness of breath (principal)
CPT/HCPCS: 71020

== ENCOUNTER → 2017-04-22 | Outpatient (CLI) | payer OTHER, MEDICAID ==
--- NOTE | 2017-04-22 16:27 | MRI ---
STUDY: MRI OF THE LUMBAR SPINE HISTORY: Chronic low back pain.. Comparison: None. Technique: Multiplanar multi-sequence MRI of the lumbar spine was performed. Sagittal T1, sagittal T 2, and STIR images, axial T1, and axial T2 images were obtained. Findings: Sagittal images: Vertebral body heights and alignment are within normal limits. Marrow signal is age-appropriate. No s ignificant marrow signal abnormalities are identified. There is multilevel degenerative disc disease. The conus medullaris is normal appearance terminating at the level of T12/L1. Axial images: T12 -- L1: There is bilateral facet arthropathy and ligamentum flavum infolding. The central canal ne ural foramina are adequate. L1 -- L2: There is bilateral facet arthropathy and ligamentum flavum infolding. The central canal andre ral foramina are adequate. L2 -- L3: There is a broad-based disc bulge, bilateral facet arthropathy and ligamentum flavum infold ing. The combination of these findings results in mild central canal stenosis. There is severe right and mild left neural foraminal stenosis at this level. L3 -- L4: There is a broad-based disc bulge, bilateral facet arthropathy and ligamentum flavum infold ing. The combination of these findings results in mild central canal stenosis. There is mild bilatera l neural foraminal stenosis at this level. L4 -- L5: There is a broad-based disc bulge with left lateral recess focal disc herniation. This effa anibal the ventral thecal sac and likely contacts the traversing nerve roots in the left lateral recess. There is severe left lateral recess stenosis. There is moderate left neural foraminal stenosis. Ther e is severe right neural foraminal stenosis. L5 -- S1: There is a broad-based disc bulge with central disc herniation. This results in effacement of the ventral thecal sac and possible contact with the traversing nerve root in the left lateral rec ess. There is only mild spinal stenosis. There is severe right, and mild left neural foraminal stenos is at this level. IMPRESSION: 1. Multilevel lumbar spondylosis as described, probably most severe at L4/5 and L5/S1. 2. Disc herniation into the left lateral recess at L4/5 resulting in severe left lateral recess steno sis. 3. Focal disc herniation at L5/S1. 4. Multilevel neural foraminal stenosis. Please see above for detail. Reported By:
== END | disposition home or self-care (01) | DRG 552 ==
LOC: RAD 14:39
PROVIDERS: ATTEND Nurse Practitioner Family
DX: M51.36 Other intervertebral disc degeneration, lumbar region (principal); M47.897 Other spondylosis, lumbosacral region; M48.061 Spinal stenosis, lumbar region without neurogenic claudication
CPT/HCPCS: 72148

== ENCOUNTER → 2017-06-28 | Outpatient (CLI) | payer OTHER, MEDICAID ==
--- NOTE | 2017-06-28 15:43 | CT ---
HISTORY: Headaches Study: CT brain without contrast Comparison: July 07, 2013 Technique: Multiple axial images of the brain were obtained from the skull base to the vertex without administra tion of IV contrast. Findings: No acute intraparenchymal hemorrhage or mass can be identified. No extra-axial fluid collections are seen. No alteration in the attenuation of the brain parenchyma can be identified to suggest acute o r subacute ischemic change. The ventricular system is symmetric and nondilated. If symptoms or clin ical concern persist recommend continued follow-up for further evaluation. IMPRESSION: 1. No acute intracranial process can be identified. Reported By:
== END ==
LOC: RAD 15:19
PROVIDERS: ATTEND Internal Medicine
DX: G44.52 New daily persistent headache (NDPH) (principal)
CPT/HCPCS: 70450

== ENCOUNTER 2018-05-15 12:52 | Inpatient (IN) ==
[2018-05-15 13:04] VITALS: BMI 33.0
[2018-05-15] MEDS ORDERED: DUONEB 0.5 MG/3 MG ONE (13:05)
[2018-05-15] MEDS ORDERED: DECADRON JET NEB (RESP USE) NEB ONE ×2 (13:05→13:09)
[2018-05-15 13:13] LABS: ABG BASE EXCESS 5.5 mmol/L (-2.0-2.0)
[2018-05-15 13:14] LABS: ABG HCO3 38.1 mmol/L (22-26)
[2018-05-15 13:15] LABS: ABG ALLEN TEST P
--- NOTE | 2018-05-15 13:26 | RAD ---
Exam: Portable chest History: 63-year-old male with shortness of breath. Comparison: Chest radiograph from 03/24/2017. Findings: Patient is status post median sternotomy. Mild cardiomegaly is seen. No significant vascular congestion however. Chronic interstitial changes are noted at the lung bases. Hyperinflation consistent with COPD is also seen. Visualized aspect of the bony thorax is unremarkable. Impression: 1. Mild cardiomegaly. 2. COPD with chronic interstitial changes at the lung bases. Reported By:
[2018-05-15] MEDS ORDERED: DUONEB 0.5 MG/3 MG NEB ONE (13:27)
[2018-05-15] MEDS ORDERED: SOLU-Medrol 40 MG VIAL IVP ONE (13:38)
--- NOTE | 2018-05-15 13:39 | DR.SOBA ---
HPI Time Seen Time Seen by Provider: 05/15/18 13:36 Primary Care Physician Primary Care Physician: GARDNER Complaints Chief Complaint:: EMS RESPONDS TO A SHORTNESS OF BREATH. PT. BEGAN GETTING SICK ON TUESDAY. PT. HAS HAD A PRODUCTIVE COUGH. PT. ALSO C/O WEAKNESS. PT. IS O2 DEPENDENT AT HOME. O2 SAT WAS IN THE 70'S UPON EMS ARRIVAL WITH O2 ON. Source History Provided: Patient, Family Member and EMS Mode of Arrival Mode of Arrival: EMS Timing Onset of Chief Complaint: 05/12/18 PMH PMH Past Medical History: Yes Past Medical History: Angina, Anxiety, Asthma, COPD, Depression, Diabetes, Dyslipidemia, GERD, Hypertension and ID Past Surgical History: Yes Surgical History: Abdominal Surgery, CABG/Valve Surgery and Ortho Surgery Family History History of Family Medical Conditions: Yes Family Medical History: Diabetes Mellitus, Cancer and Hypertension Social History Does patient currently use any type of tobacco product: Yes Have you used tobacco products in the last 12 months: Yes Type of Tobacco Use: Cigarettes Does any household member use tobacco: Yes Alcohol Use: None Do you use any recreational Drugs:: No Lives With: Spouse Lives Where: Home infectious screening In the last 2 months have you had wt loss of >10#?: NO Have you had fever, night sweats or hemotysis?: No Have you traveled outside the country in the last 6 months?: No Isolation: Standard PE Vital Signs Vitals: Temperature 97.9 F Pulse Rate [Apical] 104 Pulse Rate 127 Respiratory Rate 22 Blood Pressure [Right Arm] 123/65 Blood Pressure 187/97 O2 Sat by Pulse Oximetry 96 ROR Labs Reviewed Result Diagrams: 05/15/18 13:38 05/15/18 13:26 Laboratory: WBC 16.2 X10^3/uL (3.6-10.0) H 05/15/18 13:38 RBC 4.10 X10^6/uL (4.7-6.0) L 05/15/18 13:38 Hgb 12.5 g/dL (13.5-18.0) L 05/15/18 13:38 Hct 37.9 % (42.0-54.0) L 05/15/18 13:38 MCV 92.5 fL (80.0-100.0) 05/15/18 13:38 MCH 30.5 pg (27.0-34.0) 05/15/18 13:38 MCHC 33.0 g/dL (33.0-35.0) 05/15/18 13:38 RDW 13.6 % (11.6-16.5) 05/15/18 13:38 Plt Count 314 X10^3/uL (150.0-450.0) 05/15/18 13:38 MPV 8.2 fL (7.4-11.0) 05/15/18 13:38 Neut % (Auto) 67.2 % (42.0-75.0) 05/15/18 13:38 Lymph % (Auto) 17.2 % (21.0-51.0) L 05/15/18 13:38 [place] % (Auto) 14.3 % (0.0-13.0) H 05/15/18 13:38 Eos % (Auto) 0.6 % (0.9-2.9) L 05/15/18 13:38 Baso % (Auto) 0.7 % (0.2-1.0) 05/15/18 13:38 Neut # (Auto) 10.9 x10^3/uL (2.2-4.8) H 05/15/18 13:38 Lymph # (Auto) 2.8 X10^3/uL (1.3-2.9) 05/15/18 13:38 [place] # (Auto) 2.3 x10^3/uL (0.3-0.8) H 05/15/18 13:38 Eos # (Auto) 0.1 x10^3/uL (0.0-0.2) 05/15/18 13:38 Baso # (Auto) 0.1 X10^3/uL (0.0-0.1) 05/15/18 13:38 Absolute Nucleated RBC 0.1 /100WBC 05/15/18 13:38 Sample Site Rr 05/15/18 14:51 ABG pH 7.210 (7.35-7.45) L 05/15/18 14:51 ABG pCO2 90.0 mmHg (35.0-45.0) H* 05/15/18 14:51 ABG pO2 81.0 mmHg (80.0-100.0) 05/15/18 14:51 ABG HCO3 36.0 mmol/L (22-26) H* 05/15/18 14:51 ABG O2 Saturation 93.0 % (90-100) 05/15/18 14:51 ABG Base Excess 5.3 mmol/L (-2.0-2.0) H 05/15/18 14:51 Gregory Test Pos 05/15/18 14:51 A-a Gradient 377.0 mmHg 05/15/18 14:51 FiO2 80.0 05/15/18 14:51 Blood Gas Comments Pt lee well. cdn 05/15/18 14:51 Sodium 141 mmol/L (136-145) 05/15/18 13:26 Corrected Sodium 146 mmol/L (136-145) H 05/15/18 13:26 Potassium 4.8 mmol/L (3.5-5.1) 05/15/18 13:26 Chloride 101 mmol/L (98-107) 05/15/18 13:26 Carbon Dioxide 35.5 mmol/L (21-32) H 05/15/18 13:26 BUN 27 mg/dL (7-18) H 05/15/18 13:26 Creatinine 1.14 mg/dL (0.70-1.30) 05/15/18 13:26 Est GFR (MDRD) Af Amer > 60 (>60) 05/15/18 13:26 Est GFR (MDRD) Non-Af > 60 (>60) 05/15/18 13:26 Glucose 319 mg/dL (65-99) H 05/15/18 13:26 Calcium 9.2 mg/dL (8.5-10.1) 05/15/18 13:26 Corrected Calcium 10.0 mg/dL (8.5-10.1) 05/15/18 13:26 Total Bilirubin 0.80 mg/dL (0.2-1.0) 05/15/18 13:26 AST 13 Units/L (15-37) L 05/15/18 13:26 ALT 17 Units/L (12-78) 05/15/18 13:26 Alkaline Phosphatase 100 Units/L (46-116) 05/15/18 13:26 Creatine Kinase 97 Units/L (39-308) 05/15/18 13:26 CK-MB (CK-2) 1.9 ng/mL (0-4.0) 05/15/18 13:26 CK/CKMB % Calc 2.0 % (<4) 05/15/18 13:26 Troponin I < 0.02 ng/mL (0-1.5) 05/15/18 13:26 Total Protein 8.3 g/dL (6.4-8.2) H 05/15/18 13:26 Albumin 3.0 g/dL (3.4-5.0) L 05/15/18 13:26 Globulin 5.3 g/dL (2.5-4.5) H 05/15/18 13:26 Albumin/Globulin Ratio 0.6 Ratio (1.1-2.1) L 05/15/18 13:26 Specimen Type Catherized urine 05/15/18 13:48 Urine Color Dark yellow (YELLOW) 05/15/18 13:48 Urine Appearance Hazy (CLEAR) 05/15/18 13:48 Urine pH 5.0 (5.0 - 8.0) 05/15/18 13:48 Ur Specific [place] 1.025 (1.000-1.030) 05/15/18 13:48 Urine Protein 4+ (NEGATIVE) 05/15/18 13:48 Urine Glucose (UA) 4+ (NEGATIVE) 05/15/18 13:48 Urine Ketones 3+ (NEGATIVE) 05/15/18 13:48 Urine Occult Blood 4+ (NEGATIVE) 05/15/18 13:48 Urine Nitrite Positive (NEGATIVE) 05/15/18 13:48 Urine Bilirubin 1+ (NEGATIVE) 05/15/18 13:48 Urine Urobilinogen 2+ (NORMAL) 05/15/18 13:48 Ur Leukocyte Esterase 1+ (NEGATIVE) 05/15/18 13:48 Urine RBC 10-20 /HPF (NONE SEEN) 05/15/18 13:48 Urine WBC 3-5 /HPF (NONE SEEN) 05/15/18 13:48 Ur Squamous Epith Cells Few /HPF (NEGATIVE) 05/15/18 13:48 Urine Bacteria 2+ /HPF (NEGATIVE) 05/15/18 13:48 Coarse Granular Casts Few /HPF (NEGATIVE) 05/15/18 13:48 Urine Mucus Moderate /HPF (NEGATIVE) 05/15/18 13:48 Ur Culture Indicated? Yes/culture set up 05/15/18 13:48 Diagnosis Discharge Problem: Respiratory failure, COPD exacerbation, Urinary tract infection
[2018-05-15 13:49] LABS: BASOPHILS # (AUTO) 0.1 X10^3/uL (0.0-0.1); BASOPHILS % (AUTO) 0.7 % (0.2-1.0); EOSINOPHILS # (AUTO) 0.1 x10^3/uL (0.0-0.2); EOSINOPHILS % (AUTO) 0.6 % (0.9-2.9); HEMATOCRIT 37.9 % (42.0-54.0); HEMOGLOBIN 12.5 g/dL (13.5-18.0); LYMPHOCYTES # (AUTO) 2.8 X10^3/uL (1.3-2.9); LYMPHOCYTES % (AUTO) 17.2 % (21.0-51.0); MEAN CORPUSCULAR HEMOGLOBIN 30.5 pg (27.0-34.0); MEAN CORPUSCULAR VOLUME 92.5 fL (80.0-100.0); MEAN PLATELET VOLUME 8.2 fL (7.4-11.0); MONOCYTES # (AUTO) 2.3 x10^3/uL (0.3-0.8); MONOCYTES % (AUTO) 14.3 % (0.0-13.0); NEUTROPHILS # (AUTO) 10.9 x10^3/uL (2.2-4.8); NEUTROPHILS % (AUTO) 67.2 % (42.0-75.0); PLATELET COUNT 314 X10^3/uL (150.0-450.0); RED CELL DISTRIBUTION WIDTH 13.6 % (11.6-16.5); WHITE BLOOD COUNT 16.2 X10^3/uL (3.6-10.0)
[2018-05-15 13:58] LABS: BILIRUBIN,URINE 1+ (NEGATIVE); BLOOD/HEMOGLOBIN,URINE 4+ (NEGATIVE); GLUCOSE, URINE 4+ (NEGATIVE); KETONES,URINE 3+ (NEGATIVE); LEUKOCYTE ESTERASE ,URINE 1+ (NEGATIVE); NITRITES,URINE POSITIVE (NEGATIVE); PROTEIN,URINE 4+ (NEGATIVE); UROBILINOGEN,URINE 2+ (NORMAL)
[2018-05-15] MEDS ORDERED: SOLU-Medrol 40 MG VIAL ONE (14:04)
[2018-05-15 14:08] LABS: APPEARANCE,URINE HAZY (CLEAR); COLOR,URINE DARK YELLOW (YELLOW)
[2018-05-15 14:10] LABS: ALANINE AMINOTRANSFERASE 17 Units/L (12-78); ALKALINE PHOSPHATASE 100 Units/L (46-116); ASPARTATE AMINO TRANSFERASE 13 Units/L (15-37); BLOOD UREA NITROGEN 27 mg/dL (7-18); CALCIUM 9.2 mg/dL (8.5-10.1); CARBON DIOXIDE 35.5 mmol/L (21-32); CHLORIDE 101 mmol/L (98-107); COR NA(FOR HYPERGLY) 146 mmol/L (136-145); CREATININE 1.14 mg/dL (0.70-1.30); SODIUM 141 mmol/L (136-145); TOTAL PROTEIN 8.3 g/dL (6.4-8.2); eGFR NON BLACK RACES > 60 (>60)
[2018-05-15 14:12] LABS: BACTERIA,URINE 2+ /HPF (NEGATIVE); COARSE GRANULAR CASTS,URINE FEW /HPF (NEGATIVE); MUCUS,URINE MODERATE /HPF (NEGATIVE); SQUAMOUS EPITHELIAL CELL,UR FEW /HPF (NEGATIVE)
[2018-05-15 14:18] LABS: CREATINE KINASE 97 Units/L (39-308); CREATINE KINASE MB 1.9 ng/mL (0-4.0); TROPONIN I < 0.02 ng/mL (0-1.5)
[2018-05-15 14:58] LABS: ABG BASE EXCESS 5.3 mmol/L (-2.0-2.0)
[2018-05-15 14:59] LABS: ABG ALLEN TEST POS
[2018-05-15] MEDS: ROCEPHIN VIAL 1 GRAM IVP SCH (16:50)
[2018-05-15] MEDS ORDERED: PATIENT'S HOME MEDICATION (Cholecalciferol (Vitamin D3) [Vitamin D3] 1 CAP) PO SCH (17:15)
[2018-05-15] MEDS: DUONEB 0.5 MG/3 MG NEB SCH ×2 (17:40→20:08)
[2018-05-15] MEDS: PULMICORT NEB TX 0.5 MG NEB SCH (20:08)
[2018-05-15] MEDS: BROVANA IN SCH (20:08)
[2018-05-15] MEDS ORDERED: HumuLIN R SUBCUT PRN (20:14)
[2018-05-15] MEDS: COREG TAB 6.25 MG PO SCH (20:53)
[2018-05-15] MEDS: LIPITOR TAB 40 MG PO SCH (20:53)
[2018-05-15] MEDS: SOLU-Medrol 40 MG VIAL IVP SCH (20:54)
[2018-05-15] MEDS: HumuLIN R SUBCUT PRN (20:57)
[2018-05-15] MEDS: SNACK - Diabetic Appropriate PO SCH (20:58)
[2018-05-15] MEDS ORDERED: LEVEMIR SC SCH (21:00)
[2018-05-15] MEDS ORDERED: PULMICORT NEB TX 0.5 MG NEB SCH (21:00)
[2018-05-15] MEDS ORDERED: BROVANA IN SCH (21:00)
[2018-05-15] MEDS: NEURONTIN CAP 300 MG PO SCH (21:00)
[2018-05-16] MEDS: DUONEB 0.5 MG/3 MG NEB SCH ×6 (01:04→23:39)
[2018-05-16 05:11] LABS: ABG BASE EXCESS 10.7 mmol/L (-2.0-2.0)
[2018-05-16 05:34] LABS: ABG HCO3 39.5 mmol/L (22-26)
[2018-05-16] MEDS: HumuLIN R SUBCUT PRN ×4 (05:52→20:24)
[2018-05-16] MEDS: NEURONTIN CAP 300 MG PO SCH ×3 (05:53→22:03)
[2018-05-16 06:09] LABS: BASOPHILS % (AUTO) 0.1 % (0.2-1.0); HEMATOCRIT 34.3 % (42.0-54.0); HEMOGLOBIN 11.4 g/dL (13.5-18.0); LYMPHOCYTES # (AUTO) 0.5 X10^3/uL (1.3-2.9); LYMPHOCYTES % (AUTO) 4.2 % (21.0-51.0); MEAN CORPUSCULAR HEMOGLOBIN 30.6 pg (27.0-34.0); MEAN CORPUSCULAR HGB CONC 33.2 g/dL (33.0-35.0); MEAN CORPUSCULAR VOLUME 92.1 fL (80.0-100.0); MONOCYTES % (AUTO) 8.7 % (0.0-13.0); NEUTROPHILS # (AUTO) 10.5 x10^3/uL (2.2-4.8); PLATELET COUNT 266 X10^3/uL (150.0-450.0); RED BLOOD COUNT 3.72 X10^6/uL (4.7-6.0); RED CELL DISTRIBUTION WIDTH 13.2 % (11.6-16.5); WHITE BLOOD COUNT 12.1 X10^3/uL (3.6-10.0)
[2018-05-16 06:33] LABS: BLOOD UREA NITROGEN 39 mg/dL (7-18); CALCIUM 8.7 mg/dL (8.5-10.1); CARBON DIOXIDE 34.8 mmol/L (21-32); CHLORIDE 100 mmol/L (98-107); COR NA(FOR HYPERGLY) 146 mmol/L (136-145); SODIUM 141 mmol/L (136-145); eGFR NON BLACK RACES > 60 (>60)
[2018-05-16] MEDS ORDERED: PATIENT'S HOME MEDICATION (Fluticasone-Umeclidin-Vilanter [Fluticasone-Umeclidin-Vilanter] IN SCH (09:00)
[2018-05-16] MEDS ORDERED: SEMAGLUTIDE 0.25 MG SUBCUT SCH (09:00)
[2018-05-16] MEDS ORDERED: VITAMIN D3 PO SCH (09:00)
[2018-05-16] MEDS: BROVANA IN SCH ×2 (09:02→23:39)
[2018-05-16] MEDS: PULMICORT NEB TX 0.5 MG NEB SCH ×2 (09:02→23:39)
[2018-05-16] MEDS: ASPIRIN 81 MG CHEWTAB PO SCH (09:27)
[2018-05-16] MEDS: LASIX PO SCH (09:31)
[2018-05-16] MEDS: PriLOSEC PO SCH (09:31)
[2018-05-16] MEDS: ROCEPHIN VIAL 1 GRAM IVP SCH (09:32)
[2018-05-16] MEDS: SOLU-Medrol 40 MG VIAL IVP SCH ×2 (09:32→20:23)
[2018-05-16] MEDS: PLAVIX PO SCH (09:35)
[2018-05-16] MEDS: COREG TAB 6.25 MG PO SCH ×2 (12:30→20:23)
[2018-05-16 13:04] LABS: ALANINE AMINOTRANSFERASE 15 Units/L (12-78); ALBUMIN 2.5 g/dL (3.4-5.0); ALKALINE PHOSPHATASE 78 Units/L (46-116); ASPARTATE AMINO TRANSFERASE 10 Units/L (15-37); COR CA(FOR HYPOALB) 9.9 mg/dL (8.5-10.1); TOTAL PROTEIN 7.3 g/dL (6.4-8.2)
--- NOTE | 2018-05-16 17:14 | DR.H&P ---
H&P - History & Physical for Day of: H&P Date: 05/15/18 - Chief Complaint Chief Complaint: SOB - History of Present Illness History of Present Illness: 63 WM ER ADMISSION WITH RESPIRATORY DISTRESS. PT HAS PMH OF COPD, OA, CAD, CHF, SHEKHAR, HTN, PT HAD CO2 122 ON ADMISSION ABG. PT ADMITTED TO ICU FOR TREATMENT OF ACUTE RESP DISTRESS AND COPD WITH ACUTE EXACERBATION. PT ON PNEUMONIA PROTOCOL. - Past Medical History Past Medical History: Angina, [place], Hypertension, Dyslipidemia, Diabetes, Depression, Anxiety, COPD, Asthma, GERD - Past Surgical History Surgical History: Angioplasty/Stents, CABG/Valve Surgery - Family History Family Medical History: Diabetes Mellitus, Cancer, [place], Coronary Artery Disease, Heart Failure, Hypertension - Social History Does patient currently use any type of tobacco product: Yes Have you used tobacco products in the last 12 months: Yes Type of Tobacco Use: Cigarettes How many years tobacco product used: 45 Does any household member use tobacco: Yes Alcohol Use: None Drug Use: None - Medications Home Medications: adhesive tape Allergy (Verified 05/15/18 12:59) CONTINUE taking the following medications albuterol sulfate [Ventolin HFA] 1 puff INHALATION QID PRN 05/15/18 [History] carvedilol 6.25 mg PO BID 05/15/18 [History] cholecalciferol (vitamin D3) [Vitamin D3] 1 cap PO WEEKLY 05/15/18 [History] clopidogrel 75 mg PO DAILY 05/15/18 [History] qacsilrtzyu-uleasojzg-gclcskmj [Trelegy Ellipta] 1 puff INHALATION DAILY 05/15/18 [History] furosemide 20 mg PO DAILY 05/15/18 [History] gabapentin 300 mg PO TID 05/15/18 [History] insulin detemir U-100 [Levemir FlexTouch U-100 Insuln] 60 units SUBCUT BID 05/15/18 [History] ipratropium-albuterol [Combivent Respimat] 1 puff INHALATION QID 05/15/18 [History] semaglutide [Ozempic] 0.25 mg SUBCUT WEEKLY 05/15/18 [History] - Review of Systems Constitutional: Fever, Chills, Weakness Eyes: No Symptoms Reported ENT: No Symptoms Reported Respiratory: Cough, Shortness of Breath, SOB with Excertion, Pleuritic Pain, Wheezing Cardiovascular: No Symptoms Reported Gastrointestinal: Nausea Genitourinary: No Symptoms Reported Musculoskeletal: Back Pain Skin: No Symptoms Reported Neurological: Weakness - Physical Exam Vital Signs: Temperature 98.1 F Pulse Rate [Apical] 104 Pulse Rate 77 Respiratory Rate 29 Blood Pressure [Right Arm] 123/65 Blood Pressure 99/57 O2 Sat by Pulse Oximetry 100 Oriented: Normal Eyes: Normal Ear: Normal Nose: Normal Throat: Dry Respiratory: Diminished Throughout, Wheezes Throughout Cardiovascular: Tachycardia : Normal Auscultation: Bowel Sounds: Normal Palpation: Other (VENTRAL HERNIA) Skin: Normal Musculoskeletal: Back:Thoracic, Back:Lumbar Psychiatric: Anxiety Affect: Anxious Speech Pattern: Appropriate, Delayed - Assessment/Plan (1) Respiratory failure Status: Acute Plan: ADMIT, ICU. SERIAL CE AND EKG, BLOOD AND SPUTUM CULURE ON ADMISSION. RESP CONSULT, SUPPLEMENTAL O2 SERIAL ABD, BIPAP PRN. CXR ON ADMISSION AND Q AM. STRICT I & OS, CARDIAC MONITORING. IV ATBX, VERIFY HOME MEDICATION, BLOOD SUGAR CONTROL (2) COPD (chronic obstructive pulmonary disease) Status: Chronic (3) CAD (coronary artery disease) Status: Acute (4) Hypertension Status: Chronic (5) Hyperlipidemia Status: Chronic (6) GERD (gastroesophageal reflux disease) Status: Chronic (7) COPD exacerbation Status: Acute - Allergies Allergies/Adverse Reactions: Allergies Allergy/AdvReac Type Severity Reaction Status Date / Time adhesive tape Allergy Verified 05/15/18 12:59
--- NOTE | 2018-05-16 17:20 | PCM.PROG ---
Progress Note - Progress Note for Day of Date of Exam: 05/16/18 - Subjective Subjective: PT IS 63WM ADMITTED WITH ACUTE ON CHRONIC RESPIRATORY FAILURE, CURRENTLY ON BIPAP CO2 75 THIS AM. PT CURRENTLY ON IV ATBX, WITH CULTURE PENDING. PT CO HOPPER THIS AM. CONTINUE DUE NEBS AND BLOOD SUGAR CONTROL. - Past Medical Family Social History Past Med/Fam/Surg Hx: No changes since H&P Allergies: Allergies adhesive tape Allergy (Verified 05/15/18 12:59) - Review of Systems ROS: No change since H&P - Vital Signs and I&O's Vital Signs: Temperature 98.1 F Pulse Rate [Apical] 104 Pulse Rate 77 Respiratory Rate 29 Blood Pressure [Right Arm] 123/65 Blood Pressure 99/57 O2 Sat by Pulse Oximetry 100 Intake and Output: Intake & Output 05/14/18 05/15/18 05/16/18 05/17/18 11:59 11:59 11:59 11:59 Intake Total 350 / 350 Output Total 550 / 550 350 / 350 Balance -200 / -200 -350 / -350 - Physical Exam Oriented: Normal Eyes: Normal Ear: Normal Nose: Normal Throat: Dry Respiratory: Diminished, Wheezes, Rhonchi Cardiovascular: Tachycardia : Normal Auscultation: Bowel Sounds: Normal Skin: Normal Musculoskeletal: Back:Thoracic, Back:Lumbar Psychiatric: Anxiety Affect: Anxious Speech Pattern: Appropriate, Delayed - Laboratory and Diagnostics Result Diagrams: 05/16/18 05:23 05/16/18 05:23 Labs: 05/15/18 13:48 Urine,Catheterized Urine Culture - Preliminary Laboratory WBC 12.1 X10^3/uL (3.6-10.0) H 05/16/18 05:23 RBC 3.72 X10^6/uL (4.7-6.0) L 05/16/18 05:23 Hgb 11.4 g/dL (13.5-18.0) L 05/16/18 05:23 Hct 34.3 % (42.0-54.0) L 05/16/18 05:23 MCV 92.1 fL (80.0-100.0) 05/16/18 05:23 MCH 30.6 pg (27.0-34.0) 05/16/18 05:23 MCHC 33.2 g/dL (33.0-35.0) 05/16/18 05:23 RDW 13.2 % (11.6-16.5) 05/16/18 05:23 Plt Count 266 X10^3/uL (150.0-450.0) 05/16/18 05:23 MPV 8.0 fL (7.4-11.0) 05/16/18 05:23 Neut % (Auto) 87.0 % (42.0-75.0) H 05/16/18 05:23 Lymph % (Auto) 4.2 % (21.0-51.0) L 05/16/18 05:23 [place] % (Auto) 8.7 % (0.0-13.0) 05/16/18 05:23 Eos % (Auto) 0.0 % (0.9-2.9) L 05/16/18 05:23 Baso % (Auto) 0.1 % (0.2-1.0) L 05/16/18 05:23 Neut # (Auto) 10.5 x10^3/uL (2.2-4.8) H 05/16/18 05:23 Lymph # (Auto) 0.5 X10^3/uL (1.3-2.9) L 05/16/18 05:23 [place] # (Auto) 1.0 x10^3/uL (0.3-0.8) H 05/16/18 05:23 Eos # (Auto) 0.0 x10^3/uL (0.0-0.2) 05/16/18 05:23 Baso # (Auto) 0.0 X10^3/uL (0.0-0.1) 05/16/18 05:23 Absolute Nucleated RBC 0.0 /100WBC 05/16/18 05:23 Sample Site Lbra 05/16/18 05:08 ABG pH 7.330 (7.35-7.45) L 05/16/18 05:08 ABG pCO2 75.0 mmHg (35.0-45.0) H* 05/16/18 05:08 ABG pO2 157.0 mmHg (80.0-100.0) H 05/16/18 05:08 ABG HCO3 39.5 mmol/L (22-26) H* 05/16/18 05:08 ABG O2 Saturation 99.0 % (90-100) 05/16/18 05:08 ABG Base Excess 10.7 mmol/L (-2.0-2.0) H 05/16/18 05:08 Gregory Test Na 05/16/18 05:08 A-a Gradient 320.0 mmHg 05/16/18 05:08 FiO2 80.0 05/16/18 05:08 Blood Gas Comments Sofia abg well-mtf 05/16/18 05:08 Sodium 141 mmol/L (136-145) 05/16/18 05:23 Corrected Sodium 146 mmol/L (136-145) H 05/16/18 05:23 Potassium 4.5 mmol/L (3.5-5.1) 05/16/18 05:23 Chloride 100 mmol/L (98-107) 05/16/18 05:23 Carbon Dioxide 34.8 mmol/L (21-32) H 05/16/18 05:23 BUN 39 mg/dL (7-18) H 05/16/18 05:23 Creatinine 1.20 mg/dL (0.70-1.30) 05/16/18 05:23 Est GFR (MDRD) Af Amer > 60 (>60) 05/16/18 05:23 Est GFR (MDRD) Non-Af > 60 (>60) 05/16/18 05:23 Glucose 290 mg/dL (65-99) H 05/16/18 05:23 POC Glucose (mg/dL) 269 mg/dL (65-99) H 05/16/18 16:16 Calcium 8.7 mg/dL (8.5-10.1) 05/16/18 05:23 Corrected Calcium 9.9 mg/dL (8.5-10.1) 05/16/18 05:23 Total Bilirubin 0.50 mg/dL (0.2-1.0) 05/16/18 05:23 AST 10 Units/L (15-37) L 05/16/18 05:23 ALT 15 Units/L (12-78) 05/16/18 05:23 Alkaline Phosphatase 78 Units/L (46-116) 05/16/18 05:23 Creatine Kinase 97 Units/L (39-308) 05/15/18 13:26 CK-MB (CK-2) 1.9 ng/mL (0-4.0) 05/15/18 13:26 CK/CKMB % Calc 2.0 % (<4) 05/15/18 13:26 Troponin I < 0.02 ng/mL (0-1.5) 05/15/18 13:26 Total Protein 7.3 g/dL (6.4-8.2) 05/16/18 05:23 Albumin 2.5 g/dL (3.4-5.0) L 05/16/18 05:23 Globulin 4.8 g/dL (2.5-4.5) H 05/16/18 05:23 Albumin/Globulin Ratio 0.5 Ratio (1.1-2.1) L 05/16/18 05:23 Specimen Type Catherized urine 05/15/18 13:48 Urine Color Dark yellow (YELLOW) 05/15/18 13:48 Urine Appearance Hazy (CLEAR) 05/15/18 13:48 Urine pH 5.0 (5.0 - 8.0) 05/15/18 13:48 Ur Specific [place] 1.025 (1.000-1.030) 05/15/18 13:48 Urine Protein 4+ (NEGATIVE) 05/15/18 13:48 Urine Glucose (UA) 4+ (NEGATIVE) 05/15/18 13:48 Urine Ketones 3+ (NEGATIVE) 05/15/18 13:48 Urine Occult Blood 4+ (NEGATIVE) 05/15/18 13:48 Urine Nitrite Positive (NEGATIVE) 05/15/18 13:48 Urine Bilirubin 1+ (NEGATIVE) 05/15/18 13:48 Urine Urobilinogen 2+ (NORMAL) 05/15/18 13:48 Ur Leukocyte Esterase 1+ (NEGATIVE) 05/15/18 13:48 Urine RBC 10-20 /HPF (NONE SEEN) 05/15/18 13:48 Urine WBC 3-5 /HPF (NONE SEEN) 05/15/18 13:48 Ur Squamous Epith Cells Few /HPF (NEGATIVE) 05/15/18 13:48 Urine Bacteria 2+ /HPF (NEGATIVE) 05/15/18 13:48 Coarse Granular Casts Few /HPF (NEGATIVE) 05/15/18 13:48 Urine Mucus Moderate /HPF (NEGATIVE) 05/15/18 13:48 Ur Culture Indicated? Yes/culture set up 05/15/18 13:48 - Plan (1) Respiratory failure Status: Acute Plan: SERIAL CE AND EKG, BLOOD AND SPUTUM CULTURE COLLECTED ON ADMISSION. RESP CONSULT, SUPPLEMENTAL O2 SERIAL ABD, BIPAP PRN. CXR Q AM. STRICT I & OS, CARDIAC MONITORING. IV ATBX, BLOOD SUGAR CONTROL (2) COPD (chronic obstructive pulmonary disease) Status: Chronic (3) CAD (coronary artery disease) Status: Acute (4) Hypertension Status: Chronic (5) Hyperlipidemia Status: Chronic (6) GERD (gastroesophageal reflux disease) Status: Chronic (7) COPD exacerbation Status: Acute
[2018-05-16] MEDS: SNACK - Diabetic Appropriate PO SCH (20:23)
[2018-05-16] MEDS: LIPITOR TAB 40 MG PO SCH (20:23)
[2018-05-17] MEDS: DUONEB 0.5 MG/3 MG NEB SCH ×6 (01:24→21:44)
[2018-05-17] MEDS ORDERED: D50W ABBOJECT SYR IV ONE (05:48)
[2018-05-17] MEDS: HumuLIN R SUBCUT PRN ×4 (06:03→20:49)
[2018-05-17] MEDS: NEURONTIN CAP 300 MG PO SCH ×3 (06:03→22:51)
[2018-05-17 06:06] LABS: BASOPHILS % (AUTO) 0.2 % (0.2-1.0); HEMATOCRIT 34.6 % (42.0-54.0); HEMOGLOBIN 11.7 g/dL (13.5-18.0); LYMPHOCYTES # (AUTO) 0.8 X10^3/uL (1.3-2.9); LYMPHOCYTES % (AUTO) 5.3 % (21.0-51.0); MEAN CORPUSCULAR HEMOGLOBIN 30.6 pg (27.0-34.0); MEAN CORPUSCULAR HGB CONC 33.8 g/dL (33.0-35.0); MEAN CORPUSCULAR VOLUME 90.3 fL (80.0-100.0); MEAN PLATELET VOLUME 7.9 fL (7.4-11.0); MONOCYTES % (AUTO) 6.7 % (0.0-13.0); NEUTROPHILS # (AUTO) 13.1 x10^3/uL (2.2-4.8); NEUTROPHILS % (AUTO) 87.8 % (42.0-75.0); PLATELET COUNT 268 X10^3/uL (150.0-450.0); RED BLOOD COUNT 3.83 X10^6/uL (4.7-6.0); RED CELL DISTRIBUTION WIDTH 13.4 % (11.6-16.5); WHITE BLOOD COUNT 14.9 X10^3/uL (3.6-10.0)
[2018-05-17 06:18] LABS: ALANINE AMINOTRANSFERASE 16 Units/L (12-78); ALBUMIN 2.4 g/dL (3.4-5.0); ALKALINE PHOSPHATASE 84 Units/L (46-116); ASPARTATE AMINO TRANSFERASE 12 Units/L (15-37); BLOOD UREA NITROGEN 55 mg/dL (7-18); CALCIUM 9.2 mg/dL (8.5-10.1); CARBON DIOXIDE 34.3 mmol/L (21-32); CHLORIDE 101 mmol/L (98-107); COR CA(FOR HYPOALB) 10.5 mg/dL (8.5-10.1); COR NA(FOR HYPERGLY) 144 mmol/L (136-145); CREATININE 1.17 mg/dL (0.70-1.30); SODIUM 140 mmol/L (136-145); TOTAL PROTEIN 7.4 g/dL (6.4-8.2); eGFR NON BLACK RACES > 60 (>60)
[2018-05-17] MEDS ORDERED: LASIX IVP ONE (08:06)
[2018-05-17] MEDS: ROCEPHIN VIAL 1 GRAM IVP SCH (08:16)
[2018-05-17] MEDS: SOLU-Medrol 40 MG VIAL IVP SCH ×2 (08:16→20:49)
[2018-05-17] MEDS: PriLOSEC PO SCH (08:17)
[2018-05-17] MEDS: COREG TAB 6.25 MG PO SCH ×2 (08:17→20:48)
[2018-05-17] MEDS: LASIX PO SCH (08:17)
[2018-05-17] MEDS: PLAVIX PO SCH (08:19)
[2018-05-17] MEDS: ASPIRIN 81 MG CHEWTAB PO SCH (08:19)
[2018-05-17] MEDS: BROVANA IN SCH ×2 (08:40→21:44)
[2018-05-17] MEDS: PULMICORT NEB TX 0.5 MG NEB SCH ×2 (08:40→21:43)
--- NOTE | 2018-05-17 09:28 | RAD ---
History: Shortness of breath Study: Portable AP chest Comparison: May 15 Findings: The heart size is normal status post CABG. The lungs are hyperinflated with mild chronic interstitial lung disease. There is no lung consolidation or edema or effusion. Impression: COPD, no definite acute disease Reported By:
--- NOTE | 2018-05-17 18:02 | PCM.PROG ---
Progress Note - Progress Note for Day of Date of Exam: 05/17/18 - Subjective Subjective: PT IS 63WM ADMITTED WITH ACUTE ON CHRONIC RESPIRATORY FAILURE, CURRENTLY ON BIPAP DURING THE NIGHT, ON NASAL CANULA THIS AM WITH O2 SAT'S UPPER 90'S. PT CONTINUED WITH DIFFUSE WHEEZING AND MODERATE LABORED RESP WHILE EATING AND TALKING. PT CURRENTLY ON IV ATBX, WITH CULTURE PENDING.CONTINUE DUE NEBS AND BLOOD SUGAR CONTROL. REPEAT AM ABG - Past Medical Family Social History Past Med/Fam/Surg Hx: No changes since H&P Allergies: Allergies adhesive tape Allergy (Verified 05/15/18 12:59) - Review of Systems ROS: No change since H&P - Vital Signs and I&O's Vital Signs: Temperature 97.3 F Pulse Rate [Apical] 104 Pulse Rate 90 Respiratory Rate 24 Blood Pressure [Right Arm] 123/65 Blood Pressure 110/68 O2 Sat by Pulse Oximetry 92 Intake and Output: Intake & Output 05/15/18 05/16/18 05/17/18 05/18/18 11:59 11:59 11:59 11:59 Intake Total 350 / 350 602 / 602 1435 / 1435 Output Total 550 / 550 775 / 775 1400 / 1400 Balance -200 / -200 -173 / -173 35 / 35 - Physical Exam Oriented: Normal Eyes: Normal Ear: Normal Nose: Normal Throat: Dry Respiratory: Diminished, Wheezes, Rhonchi Cardiovascular: Tachycardia : Normal Auscultation: Bowel Sounds: Normal Skin: Normal Musculoskeletal: Back:Thoracic, Back:Lumbar Psychiatric: Anxiety Affect: Anxious Speech Pattern: Clear, Appropriate - Laboratory and Diagnostics Result Diagrams: 05/17/18 05:26 05/17/18 17:05 Labs: 05/15/18 13:38 Blood Blood Culture - Preliminary 05/15/18 13:26 Blood Blood Culture - Preliminary 05/17/18 10:02 Sputum - Expectorated Sputum - Final 05/15/18 13:48 Urine,Catheterized Urine Culture - Final Laboratory WBC 14.9 X10^3/uL (3.6-10.0) H 05/17/18 05:26 RBC 3.83 X10^6/uL (4.7-6.0) L 05/17/18 05:26 Hgb 11.7 g/dL (13.5-18.0) L 05/17/18 05:26 Hct 34.6 % (42.0-54.0) L 05/17/18 05:26 MCV 90.3 fL (80.0-100.0) 05/17/18 05:26 MCH 30.6 pg (27.0-34.0) 05/17/18 05:26 MCHC 33.8 g/dL (33.0-35.0) 05/17/18 05:26 RDW 13.4 % (11.6-16.5) 05/17/18 05:26 Plt Count 268 X10^3/uL (150.0-450.0) 05/17/18 05:26 MPV 7.9 fL (7.4-11.0) 05/17/18 05:26 Neut % (Auto) 87.8 % (42.0-75.0) H 05/17/18 05:26 Lymph % (Auto) 5.3 % (21.0-51.0) L 05/17/18 05:26 [place] % (Auto) 6.7 % (0.0-13.0) 05/17/18 05:26 Eos % (Auto) 0.0 % (0.9-2.9) L 05/17/18 05:26 Baso % (Auto) 0.2 % (0.2-1.0) 05/17/18 05:26 Neut # (Auto) 13.1 x10^3/uL (2.2-4.8) H 05/17/18 05:26 Lymph # (Auto) 0.8 X10^3/uL (1.3-2.9) L 05/17/18 05:26 [place] # (Auto) 1.0 x10^3/uL (0.3-0.8) H 05/17/18 05:26 Eos # (Auto) 0.0 x10^3/uL (0.0-0.2) 05/17/18 05:26 Baso # (Auto) 0.0 X10^3/uL (0.0-0.1) 05/17/18 05:26 Absolute Nucleated RBC 0.0 /100WBC 05/17/18 05:26 Sample Site Lbra 05/16/18 05:08 ABG pH 7.330 (7.35-7.45) L 05/16/18 05:08 ABG pCO2 75.0 mmHg (35.0-45.0) H* 05/16/18 05:08 ABG pO2 157.0 mmHg (80.0-100.0) H 05/16/18 05:08 ABG HCO3 39.5 mmol/L (22-26) H* 05/16/18 05:08 ABG O2 Saturation 99.0 % (90-100) 05/16/18 05:08 ABG Base Excess 10.7 mmol/L (-2.0-2.0) H 05/16/18 05:08 Gregory Test Na 05/16/18 05:08 A-a Gradient 320.0 mmHg 05/16/18 05:08 FiO2 80.0 05/16/18 05:08 Blood Gas Comments Sofia abg well-mtf 05/16/18 05:08 Sodium 140 mmol/L (136-145) 05/17/18 05:26 Corrected Sodium 144 mmol/L (136-145) 05/17/18 05:26 Potassium 4.6 mmol/L (3.5-5.1) 05/17/18 05:26 Chloride 101 mmol/L (98-107) 05/17/18 05:26 Carbon Dioxide 34.3 mmol/L (21-32) H 05/17/18 05:26 BUN 55 mg/dL (7-18) H 05/17/18 05:26 Creatinine 1.17 mg/dL (0.70-1.30) 05/17/18 05:26 Est GFR (MDRD) Af Amer > 60 (>60) 05/17/18 05:26 Est GFR (MDRD) Non-Af > 60 (>60) 05/17/18 05:26 Glucose 451 mg/dL (65-99) H 05/17/18 17:05 POC Glucose (mg/dL) 429 mg/dL (65-99) H* 05/17/18 16:53 Calcium 9.2 mg/dL (8.5-10.1) 05/17/18 05:26 Corrected Calcium 10.5 mg/dL (8.5-10.1) H 05/17/18 05:26 Total Bilirubin 0.40 mg/dL (0.2-1.0) 05/17/18 05:26 AST 12 Units/L (15-37) L 05/17/18 05:26 ALT 16 Units/L (12-78) 05/17/18 05:26 Alkaline Phosphatase 84 Units/L (46-116) 05/17/18 05:26 Creatine Kinase 97 Units/L (39-308) 05/15/18 13:26 CK-MB (CK-2) 1.9 ng/mL (0-4.0) 05/15/18 13:26 CK/CKMB % Calc 2.0 % (<4) 05/15/18 13:26 Troponin I < 0.02 ng/mL (0-1.5) 05/15/18 13:26 Total Protein 7.4 g/dL (6.4-8.2) 05/17/18 05:26 Albumin 2.4 g/dL (3.4-5.0) L 05/17/18 05:26 Globulin 5.0 g/dL (2.5-4.5) H 05/17/18 05:26 Albumin/Globulin Ratio 0.5 Ratio (1.1-2.1) L 05/17/18 05:26 Specimen Type Catherized urine 05/15/18 13:48 Urine Color Dark yellow (YELLOW) 05/15/18 13:48 Urine Appearance Hazy (CLEAR) 05/15/18 13:48 Urine pH 5.0 (5.0 - 8.0) 05/15/18 13:48 Ur Specific [place] 1.025 (1.000-1.030) 05/15/18 13:48 Urine Protein 4+ (NEGATIVE) 05/15/18 13:48 Urine Glucose (UA) 4+ (NEGATIVE) 05/15/18 13:48 Urine Ketones 3+ (NEGATIVE) 05/15/18 13:48 Urine Occult Blood 4+ (NEGATIVE) 05/15/18 13:48 Urine Nitrite Positive (NEGATIVE) 05/15/18 13:48 Urine Bilirubin 1+ (NEGATIVE) 05/15/18 13:48 Urine Urobilinogen 2+ (NORMAL) 05/15/18 13:48 Ur Leukocyte Esterase 1+ (NEGATIVE) 05/15/18 13:48 Urine RBC 10-20 /HPF (NONE SEEN) 05/15/18 13:48 Urine WBC 3-5 /HPF (NONE SEEN) 05/15/18 13:48 Ur Squamous Epith Cells Few /HPF (NEGATIVE) 05/15/18 13:48 Urine Bacteria 2+ /HPF (NEGATIVE) 05/15/18 13:48 Coarse Granular Casts Few /HPF (NEGATIVE) 05/15/18 13:48 Urine Mucus Moderate /HPF (NEGATIVE) 05/15/18 13:48 Ur Culture Indicated? Yes/culture set up 05/15/18 13:48 - Plan (1) Respiratory failure Status: Acute Plan: SERIAL CE AND EKG, BLOOD AND SPUTUM CULTURE COLLECTED ON ADMISSION NEGATIVE AT THIS TIME. RESP CONSULT, SUPPLEMENTAL O2 SERIAL ABD, BIPAP PRN. CXR Q AM. STRICT I & OS, CARDIAC MONITORING. IV ATBX, BLOOD SUGAR CONTROL (2) COPD (chronic obstructive pulmonary disease) Status: Chronic (3) CAD (coronary artery disease) Status: Acute (4) Hypertension Status: Chronic (5) Hyperlipidemia Status: Chronic (6) GERD (gastroesophageal reflux disease) Status: Chronic (7) COPD exacerbation Status: Acute
[2018-05-17] MEDS: SNACK - Diabetic Appropriate PO SCH (20:05)
[2018-05-17] MEDS: LIPITOR TAB 40 MG PO SCH (20:49)
[2018-05-18] MEDS: DUONEB 0.5 MG/3 MG NEB SCH ×6 (00:49→20:41)
[2018-05-18 04:50] LABS: ABG BASE EXCESS 18.6 mmol/L (-2.0-2.0)
[2018-05-18 04:52] LABS: ABG HCO3 46.5 mmol/L (22-26)
[2018-05-18] MEDS: HumuLIN R SUBCUT PRN ×4 (05:56→20:23)
[2018-05-18] MEDS: NEURONTIN CAP 300 MG PO SCH ×3 (05:56→21:06)
[2018-05-18 06:31] LABS: BASOPHILS % (AUTO) 0.2 % (0.2-1.0); HEMATOCRIT 34.6 % (42.0-54.0); HEMOGLOBIN 11.6 g/dL (13.5-18.0); LYMPHOCYTES # (AUTO) 0.9 X10^3/uL (1.3-2.9); LYMPHOCYTES % (AUTO) 7.4 % (21.0-51.0); MEAN CORPUSCULAR HGB CONC 33.5 g/dL (33.0-35.0); MEAN CORPUSCULAR VOLUME 89.7 fL (80.0-100.0); MEAN PLATELET VOLUME 7.8 fL (7.4-11.0); MONOCYTES # (AUTO) 0.7 x10^3/uL (0.3-0.8); MONOCYTES % (AUTO) 5.6 % (0.0-13.0); NEUTROPHILS # (AUTO) 10.8 x10^3/uL (2.2-4.8); NEUTROPHILS % (AUTO) 86.8 % (42.0-75.0); PLATELET COUNT 281 X10^3/uL (150.0-450.0); RED BLOOD COUNT 3.86 X10^6/uL (4.7-6.0); RED CELL DISTRIBUTION WIDTH 13.2 % (11.6-16.5); WHITE BLOOD COUNT 12.5 X10^3/uL (3.6-10.0)
[2018-05-18 06:46] LABS: ALANINE AMINOTRANSFERASE 73 Units/L (12-78); ALBUMIN 2.4 g/dL (3.4-5.0); ALKALINE PHOSPHATASE 95 Units/L (46-116); ASPARTATE AMINO TRANSFERASE 55 Units/L (15-37); BLOOD UREA NITROGEN 40 mg/dL (7-18); CARBON DIOXIDE 37.6 mmol/L (21-32); CHLORIDE 99 mmol/L (98-107); COR CA(FOR HYPOALB) 10.3 mg/dL (8.5-10.1); COR NA(FOR HYPERGLY) 143 mmol/L (136-145); CREATININE 1.03 mg/dL (0.70-1.30); SODIUM 138 mmol/L (136-145); TOTAL PROTEIN 7.3 g/dL (6.4-8.2); eGFR NON BLACK RACES > 60 (>60)
[2018-05-18] MEDS: SOLU-Medrol 40 MG VIAL IVP SCH ×2 (08:43→20:24)
[2018-05-18] MEDS: ROCEPHIN VIAL 1 GRAM IVP SCH (08:43)
[2018-05-18] MEDS: COREG TAB 6.25 MG PO SCH ×2 (08:43→20:24)
[2018-05-18] MEDS: PriLOSEC PO SCH (08:43)
[2018-05-18] MEDS: ASPIRIN 81 MG CHEWTAB PO SCH (08:57)
[2018-05-18] MEDS: LASIX PO SCH (08:59)
[2018-05-18] MEDS: PLAVIX PO SCH (09:00)
[2018-05-18] MEDS: PULMICORT NEB TX 0.5 MG NEB SCH ×2 (09:06→20:41)
[2018-05-18] MEDS: BROVANA IN SCH ×2 (09:06→20:41)
[2018-05-18] MEDS: ROBITUSSIN DM PO SCH ×4 (12:30→20:24)
[2018-05-18] MEDS: SNACK - Diabetic Appropriate PO SCH (19:45)
[2018-05-18] MEDS: LIPITOR TAB 40 MG PO SCH (20:24)
[2018-05-19] MEDS: DUONEB 0.5 MG/3 MG NEB SCH ×6 (01:15→20:45)
[2018-05-19] MEDS ORDERED: CONSULT PHARMACY - INSULIN ADJUSTMENT NEEDED XX SCH (03:00)
[2018-05-19] MEDS: HumuLIN R SUBCUT PRN ×2 (06:01→12:02)
[2018-05-19] MEDS: NEURONTIN CAP 300 MG PO SCH ×3 (06:01→21:23)
[2018-05-19 06:45] LABS: BASOPHILS % (AUTO) 0.1 % (0.2-1.0); HEMATOCRIT 34.4 % (42.0-54.0); HEMOGLOBIN 11.7 g/dL (13.5-18.0); LYMPHOCYTES # (AUTO) 0.9 X10^3/uL (1.3-2.9); LYMPHOCYTES % (AUTO) 9.4 % (21.0-51.0); MEAN CORPUSCULAR HEMOGLOBIN 30.7 pg (27.0-34.0); MEAN CORPUSCULAR VOLUME 90.3 fL (80.0-100.0); MEAN PLATELET VOLUME 7.9 fL (7.4-11.0); MONOCYTES # (AUTO) 0.7 x10^3/uL (0.3-0.8); MONOCYTES % (AUTO) 8.1 % (0.0-13.0); NEUTROPHILS # (AUTO) 7.6 x10^3/uL (2.2-4.8); NEUTROPHILS % (AUTO) 82.4 % (42.0-75.0); PLATELET COUNT 280 X10^3/uL (150.0-450.0); RED BLOOD COUNT 3.82 X10^6/uL (4.7-6.0); RED CELL DISTRIBUTION WIDTH 13.1 % (11.6-16.5); WHITE BLOOD COUNT 9.2 X10^3/uL (3.6-10.0)
[2018-05-19 07:03] LABS: ALANINE AMINOTRANSFERASE 81 Units/L (12-78); ALBUMIN 2.2 g/dL (3.4-5.0); ALKALINE PHOSPHATASE 94 Units/L (46-116); ASPARTATE AMINO TRANSFERASE 41 Units/L (15-37); BLOOD UREA NITROGEN 35 mg/dL (7-18); CALCIUM 8.9 mg/dL (8.5-10.1); CHLORIDE 100 mmol/L (98-107); COR CA(FOR HYPOALB) 10.3 mg/dL (8.5-10.1); COR NA(FOR HYPERGLY) 147 mmol/L (136-145); CREATININE 1.04 mg/dL (0.70-1.30); SODIUM 139 mmol/L (136-145); TOTAL PROTEIN 6.8 g/dL (6.4-8.2); eGFR NON BLACK RACES > 60 (>60)
[2018-05-19] MEDS: PULMICORT NEB TX 0.5 MG NEB SCH ×2 (08:42→20:45)
[2018-05-19] MEDS: BROVANA IN SCH ×2 (08:42→20:45)
[2018-05-19] MEDS: ROBITUSSIN DM PO SCH ×4 (08:44→21:24)
[2018-05-19] MEDS: ROCEPHIN VIAL 1 GRAM IVP SCH (08:44)
[2018-05-19] MEDS: ASPIRIN 81 MG CHEWTAB PO SCH (08:46)
[2018-05-19] MEDS: COREG TAB 6.25 MG PO SCH ×2 (08:46→21:24)
[2018-05-19] MEDS: PLAVIX PO SCH (08:46)
[2018-05-19] MEDS: LASIX PO SCH (08:46)
[2018-05-19] MEDS: PriLOSEC PO SCH (08:46)
[2018-05-19] MEDS ORDERED: LEVEMIR SC SCH (09:00)
[2018-05-19] MEDS: SNACK - Diabetic Appropriate PO SCH (20:04)
[2018-05-19] MEDS: LEVEMIR SC SCH (21:24)
[2018-05-19] MEDS: LIPITOR TAB 40 MG PO SCH (21:24)
[2018-05-20] MEDS: DUONEB 0.5 MG/3 MG NEB SCH ×6 (00:30→20:33)
[2018-05-20 05:27] LABS: BASOPHILS % (AUTO) 0.1 % (0.2-1.0); EOSINOPHILS # (AUTO) 0.2 x10^3/uL (0.0-0.2); HEMATOCRIT 34.7 % (42.0-54.0); HEMOGLOBIN 11.7 g/dL (13.5-18.0); LYMPHOCYTES # (AUTO) 2.8 X10^3/uL (1.3-2.9); LYMPHOCYTES % (AUTO) 23.8 % (21.0-51.0); MEAN CORPUSCULAR HEMOGLOBIN 30.3 pg (27.0-34.0); MEAN CORPUSCULAR HGB CONC 33.6 g/dL (33.0-35.0); MEAN CORPUSCULAR VOLUME 90.1 fL (80.0-100.0); MEAN PLATELET VOLUME 7.5 fL (7.4-11.0); MONOCYTES # (AUTO) 1.1 x10^3/uL (0.3-0.8); MONOCYTES % (AUTO) 9.4 % (0.0-13.0); NEUTROPHILS # (AUTO) 7.7 x10^3/uL (2.2-4.8); NEUTROPHILS % (AUTO) 64.7 % (42.0-75.0); PLATELET COUNT 326 X10^3/uL (150.0-450.0); RED BLOOD COUNT 3.85 X10^6/uL (4.7-6.0); RED CELL DISTRIBUTION WIDTH 13.2 % (11.6-16.5); WHITE BLOOD COUNT 11.9 X10^3/uL (3.6-10.0)
[2018-05-20 05:39] LABS: ALANINE AMINOTRANSFERASE 58 Units/L (12-78); ALBUMIN 2.2 g/dL (3.4-5.0); ALKALINE PHOSPHATASE 79 Units/L (46-116); ASPARTATE AMINO TRANSFERASE 17 Units/L (15-37); BLOOD UREA NITROGEN 26 mg/dL (7-18); CALCIUM 8.5 mg/dL (8.5-10.1); CARBON DIOXIDE 39.3 mmol/L (21-32); CHLORIDE 101 mmol/L (98-107); COR CA(FOR HYPOALB) 9.9 mg/dL (8.5-10.1); COR NA(FOR HYPERGLY) 144 mmol/L (136-145); CREATININE 0.85 mg/dL (0.70-1.30); SODIUM 142 mmol/L (136-145); TOTAL PROTEIN 6.5 g/dL (6.4-8.2); eGFR NON BLACK RACES > 60 (>60)
[2018-05-20] MEDS: NEURONTIN CAP 300 MG PO SCH ×3 (05:54→21:06)
[2018-05-20] MEDS: ROCEPHIN VIAL 1 GRAM IVP SCH (08:37)
[2018-05-20] MEDS: ASPIRIN 81 MG CHEWTAB PO SCH (08:39)
[2018-05-20] MEDS: PLAVIX PO SCH (08:39)
[2018-05-20] MEDS: LASIX PO SCH (08:39)
[2018-05-20] MEDS: ROBITUSSIN DM PO SCH ×4 (08:39→21:06)
[2018-05-20] MEDS: COREG TAB 6.25 MG PO SCH ×2 (08:39→21:05)
[2018-05-20] MEDS: PriLOSEC PO SCH (08:39)
[2018-05-20] MEDS: PULMICORT NEB TX 0.5 MG NEB SCH ×2 (09:25→20:33)
[2018-05-20] MEDS: BROVANA IN SCH ×2 (09:25→20:33)
[2018-05-20] MEDS: HumuLIN R SUBCUT PRN ×3 (12:27→21:07)
[2018-05-20] MEDS: LEVEMIR SC SCH ×2 (12:28→21:06)
[2018-05-20] MEDS: SNACK - Diabetic Appropriate PO SCH (20:27)
[2018-05-20] MEDS: LIPITOR TAB 40 MG PO SCH (21:06)
[2018-05-21] MEDS: DUONEB 0.5 MG/3 MG NEB SCH ×6 (00:20→20:44)
[2018-05-21] MEDS: NEURONTIN CAP 300 MG PO SCH ×3 (05:51→22:00)
[2018-05-21] MEDS: HumuLIN R SUBCUT PRN ×4 (05:53→20:37)
[2018-05-21 06:08] LABS: BASOPHILS % (AUTO) 0.1 % (0.2-1.0); EOSINOPHILS # (AUTO) 0.2 x10^3/uL (0.0-0.2); EOSINOPHILS % (AUTO) 2.6 % (0.9-2.9); HEMATOCRIT 34.8 % (42.0-54.0); LYMPHOCYTES # (AUTO) 2.2 X10^3/uL (1.3-2.9); LYMPHOCYTES % (AUTO) 23.4 % (21.0-51.0); MEAN CORPUSCULAR HEMOGLOBIN 30.5 pg (27.0-34.0); MEAN CORPUSCULAR HGB CONC 34.3 g/dL (33.0-35.0); MEAN CORPUSCULAR VOLUME 88.7 fL (80.0-100.0); MEAN PLATELET VOLUME 7.7 fL (7.4-11.0); MONOCYTES # (AUTO) 0.6 x10^3/uL (0.3-0.8); MONOCYTES % (AUTO) 6.4 % (0.0-13.0); NEUTROPHILS # (AUTO) 6.4 x10^3/uL (2.2-4.8); NEUTROPHILS % (AUTO) 67.5 % (42.0-75.0); PLATELET COUNT 315 X10^3/uL (150.0-450.0); RED BLOOD COUNT 3.93 X10^6/uL (4.7-6.0); RED CELL DISTRIBUTION WIDTH 13.1 % (11.6-16.5); WHITE BLOOD COUNT 9.5 X10^3/uL (3.6-10.0)
[2018-05-21 06:17] LABS: ALANINE AMINOTRANSFERASE 46 Units/L (12-78); ALKALINE PHOSPHATASE 77 Units/L (46-116); ASPARTATE AMINO TRANSFERASE 14 Units/L (15-37); BLOOD UREA NITROGEN 21 mg/dL (7-18); CALCIUM 8.7 mg/dL (8.5-10.1); CARBON DIOXIDE 38.3 mmol/L (21-32); CHLORIDE 98 mmol/L (98-107); COR CA(FOR HYPOALB) 10.3 mg/dL (8.5-10.1); COR NA(FOR HYPERGLY) 145 mmol/L (136-145); CREATININE 0.85 mg/dL (0.70-1.30); SODIUM 140 mmol/L (136-145); TOTAL PROTEIN 6.2 g/dL (6.4-8.2); eGFR NON BLACK RACES > 60 (>60)
[2018-05-21] MEDS: ASPIRIN 81 MG CHEWTAB PO SCH (08:23)
[2018-05-21] MEDS: PriLOSEC PO SCH (08:23)
[2018-05-21] MEDS: ROBITUSSIN DM PO SCH ×4 (08:23→20:36)
[2018-05-21] MEDS: COREG TAB 6.25 MG PO SCH ×2 (08:24→20:35)
[2018-05-21] MEDS: ROCEPHIN VIAL 1 GRAM IVP SCH (08:24)
[2018-05-21] MEDS: LEVEMIR SC SCH ×2 (08:24→20:35)
[2018-05-21] MEDS: PLAVIX PO SCH (08:24)
[2018-05-21] MEDS: LASIX PO SCH (08:24)
[2018-05-21] MEDS: PULMICORT NEB TX 0.5 MG NEB SCH ×2 (08:40→20:44)
[2018-05-21] MEDS: BROVANA IN SCH ×2 (08:41→20:44)
[2018-05-21] MEDS: SNACK - Diabetic Appropriate PO SCH (20:35)
[2018-05-21] MEDS: LIPITOR TAB 40 MG PO SCH (20:36)
[2018-05-21] MEDS: AMBIEN PO PRN (20:36)
[2018-05-21] MEDS: NORCO 10/325 TAB PO PRN ×2 (20:38→21:07)
[2018-05-22] MEDS: DUONEB 0.5 MG/3 MG NEB SCH ×6 (01:01→20:03)
[2018-05-22] MEDS ORDERED: ROBITUSSIN DM PO PRN (06:16)
[2018-05-22 06:23] LABS: BASOPHILS % (AUTO) 0.3 % (0.2-1.0); EOSINOPHILS # (AUTO) 0.3 x10^3/uL (0.0-0.2); EOSINOPHILS % (AUTO) 2.8 % (0.9-2.9); HEMATOCRIT 32.5 % (42.0-54.0); HEMOGLOBIN 11.1 g/dL (13.5-18.0); LYMPHOCYTES # (AUTO) 2.8 X10^3/uL (1.3-2.9); LYMPHOCYTES % (AUTO) 27.8 % (21.0-51.0); MEAN CORPUSCULAR HEMOGLOBIN 30.2 pg (27.0-34.0); MEAN CORPUSCULAR HGB CONC 34.2 g/dL (33.0-35.0); MEAN CORPUSCULAR VOLUME 88.5 fL (80.0-100.0); MEAN PLATELET VOLUME 7.8 fL (7.4-11.0); MONOCYTES # (AUTO) 0.6 x10^3/uL (0.3-0.8); MONOCYTES % (AUTO) 5.8 % (0.0-13.0); NEUTROPHILS # (AUTO) 6.4 x10^3/uL (2.2-4.8); NEUTROPHILS % (AUTO) 63.3 % (42.0-75.0); PLATELET COUNT 288 X10^3/uL (150.0-450.0); RED BLOOD COUNT 3.67 X10^6/uL (4.7-6.0); RED CELL DISTRIBUTION WIDTH 13.4 % (11.6-16.5); WHITE BLOOD COUNT 10.1 X10^3/uL (3.6-10.0)
[2018-05-22] MEDS: NEURONTIN CAP 300 MG PO SCH ×3 (06:31→21:00)
[2018-05-22 06:48] LABS: ALANINE AMINOTRANSFERASE 33 Units/L (12-78); ALBUMIN 1.9 g/dL (3.4-5.0); ALKALINE PHOSPHATASE 71 Units/L (46-116); ASPARTATE AMINO TRANSFERASE 15 Units/L (15-37); BLOOD UREA NITROGEN 22 mg/dL (7-18); CALCIUM 8.8 mg/dL (8.5-10.1); CARBON DIOXIDE 37.9 mmol/L (21-32); CHLORIDE 100 mmol/L (98-107); COR CA(FOR HYPOALB) 10.5 mg/dL (8.5-10.1); COR NA(FOR HYPERGLY) 141 mmol/L (136-145); CREATININE 0.88 mg/dL (0.70-1.30); SODIUM 139 mmol/L (136-145); eGFR NON BLACK RACES > 60 (>60)
--- NOTE | 2018-05-22 07:56 | RAD ---
HISTORY: Shortness of breath Study: Chest AP portable Comparison: 05/17/2018 Findings: The patient is status post median sternotomy and CABG. The heart is within normal limits in size. No congestive heart failure is noted. The lungs are well inflated. Peribronchial infiltrates are present in the right lower lobe representing a change from the prior examination. No pleural effusions are identified. The bony thorax is unremarkable. IMPRESSION: Mild peribronchial infiltrates right lower lobe representing a change from the prior examination. Reported By:
--- NOTE | 2018-05-22 08:29 | PCM.PROG ---
Progress Note - Progress Note for Day of Date of Exam: 05/18/18 - Subjective Subjective: PT IS 63WM ADMITTED WITH ACUTE ON CHRONIC RESPIRATORY FAILURE, CURRENTLY ON BIPAP DURING THE NIGHT, ON NASAL CANULA THIS AM WITH O2 SAT'S UPPER 90'S. PT CONTINUED WITH DIFFUSE WHEEZING AND MODERATE LABORED RESP WHILE EATING AND TALKING. PT CURRENTLY ON IV ATBX, WITH SPUTUM CULTURE RESULTS NORMAL ROBERT. CONTINUE DUO NEBS AND BLOOD SUGAR CONTROL. REPEAT ABG CO2 70, PO2 62.0. WBC 12.5 THIS AM, - Past Medical Family Social History Past Med/Fam/Surg Hx: No changes since H&P Allergies: Allergies adhesive tape Allergy (Verified 05/15/18 12:59) Fish Containing Products Allergy (Verified 05/19/18 12:40) shrimp Allergy (Verified 05/19/18 12:40) - Review of Systems ROS: No change since H&P - Vital Signs and I&O's Vital Signs: Temperature 98 F Pulse Rate [Apical] 104 Pulse Rate 67 Respiratory Rate 22 Blood Pressure [Right Arm] 123/65 Blood Pressure 127/71 O2 Sat by Pulse Oximetry 94 Intake and Output: Intake & Output 05/19/18 05/20/18 05/21/18 05/22/18 11:59 11:59 11:59 11:59 Intake Total 2350 / 2350 760 / 760 1460 / 1460 1770 / 1770 Output Total 3100 / 3100 2300 / 2300 850 / 850 1290 / 1290 Balance -750 / -750 -1540 / -1540 610 / 610 480 / 480 - Physical Exam Oriented: Normal Eyes: Normal Ear: Normal Nose: Normal Throat: Dry Respiratory: Diminished, Wheezes, Rhonchi Cardiovascular: Tachycardia : Normal Auscultation: Bowel Sounds: Normal Skin: Normal Musculoskeletal: Back:Thoracic, Back:Lumbar Psychiatric: Anxiety Affect: Anxious Speech Pattern: Clear, Appropriate - Laboratory and Diagnostics Result Diagrams: 05/22/18 05:05 05/22/18 05:05 Labs: 05/15/18 13:38 Blood Blood Culture - Final 05/15/18 13:26 Blood Blood Culture - Final 05/17/18 10:02 Sputum - Expectorated Sputum Sputum Culture - Final 05/17/18 10:02 Sputum - Expectorated Sputum - Final 05/15/18 13:48 Urine,Catheterized Urine Culture - Final Laboratory WBC 10.1 X10^3/uL (3.6-10.0) H 05/22/18 05:05 RBC 3.67 X10^6/uL (4.7-6.0) L 05/22/18 05:05 Hgb 11.1 g/dL (13.5-18.0) L 05/22/18 05:05 Hct 32.5 % (42.0-54.0) L 05/22/18 05:05 MCV 88.5 fL (80.0-100.0) 05/22/18 05:05 MCH 30.2 pg (27.0-34.0) 05/22/18 05:05 MCHC 34.2 g/dL (33.0-35.0) 05/22/18 05:05 RDW 13.4 % (11.6-16.5) 05/22/18 05:05 Plt Count 288 X10^3/uL (150.0-450.0) 05/22/18 05:05 MPV 7.8 fL (7.4-11.0) 05/22/18 05:05 Neut % (Auto) 63.3 % (42.0-75.0) 05/22/18 05:05 Lymph % (Auto) 27.8 % (21.0-51.0) 05/22/18 05:05 [place] % (Auto) 5.8 % (0.0-13.0) 05/22/18 05:05 Eos % (Auto) 2.8 % (0.9-2.9) 05/22/18 05:05 Baso % (Auto) 0.3 % (0.2-1.0) 05/22/18 05:05 Neut # (Auto) 6.4 x10^3/uL (2.2-4.8) H 05/22/18 05:05 Lymph # (Auto) 2.8 X10^3/uL (1.3-2.9) 05/22/18 05:05 [place] # (Auto) 0.6 x10^3/uL (0.3-0.8) 05/22/18 05:05 Eos # (Auto) 0.3 x10^3/uL (0.0-0.2) H 05/22/18 05:05 Baso # (Auto) 0.0 X10^3/uL (0.0-0.1) 05/22/18 05:05 Absolute Nucleated RBC 0.0 /100WBC 05/22/18 05:05 Sample Site Lbra 05/18/18 04:46 ABG pH 7.430 (7.35-7.45) 05/18/18 04:46 ABG pCO2 70.0 mmHg (35.0-45.0) H* 05/18/18 04:46 ABG pO2 62.0 mmHg (80.0-100.0) L 05/18/18 04:46 ABG HCO3 46.5 mmol/L (22-26) H* 05/18/18 04:46 ABG O2 Saturation 92.0 % (90-100) 05/18/18 04:46 ABG Base Excess 18.6 mmol/L (-2.0-2.0) H 05/18/18 04:46 Gregory Test Na 05/18/18 04:46 A-a Gradient 207.0 mmHg 05/18/18 04:46 FiO2 50.0 05/18/18 04:46 Blood Gas Comments Sofia abg well-mtf 05/18/18 04:46 Sodium 139 mmol/L (136-145) 05/22/18 05:05 Corrected Sodium 141 mmol/L (136-145) 05/22/18 05:05 Potassium 3.7 mmol/L (3.5-5.1) 05/22/18 05:05 Chloride 100 mmol/L (98-107) 05/22/18 05:05 Carbon Dioxide 37.9 mmol/L (21-32) H 05/22/18 05:05 BUN 22 mg/dL (7-18) H 05/22/18 05:05 Creatinine 0.88 mg/dL (0.70-1.30) 05/22/18 05:05 Est GFR (MDRD) Af Amer > 60 (>60) 05/22/18 05:05 Est GFR (MDRD) Non-Af > 60 (>60) 05/22/18 05:05 Glucose 186 mg/dL (65-99) H 05/22/18 05:05 POC Glucose (mg/dL) 170 mg/dL (65-99) H 05/22/18 05:38 Calcium 8.8 mg/dL (8.5-10.1) 05/22/18 05:05 Corrected Calcium 10.5 mg/dL (8.5-10.1) H 05/22/18 05:05 Total Bilirubin 0.30 mg/dL (0.2-1.0) 05/22/18 05:05 AST 15 Units/L (15-37) 05/22/18 05:05 ALT 33 Units/L (12-78) 05/22/18 05:05 Alkaline Phosphatase 71 Units/L (46-116) 05/22/18 05:05 Creatine Kinase 97 Units/L (39-308) 05/15/18 13:26 CK-MB (CK-2) 1.9 ng/mL (0-4.0) 05/15/18 13:26 CK/CKMB % Calc 2.0 % (<4) 05/15/18 13:26 Troponin I < 0.02 ng/mL (0-1.5) 05/15/18 13:26 Total Protein 6.0 g/dL (6.4-8.2) L 05/22/18 05:05 Albumin 1.9 g/dL (3.4-5.0) L 05/22/18 05:05 Globulin 4.1 g/dL (2.5-4.5) 05/22/18 05:05 Albumin/Globulin Ratio 0.5 Ratio (1.1-2.1) L 05/22/18 05:05 Specimen Type Catherized urine 05/15/18 13:48 Urine Color Dark yellow (YELLOW) 05/15/18 13:48 Urine Appearance Hazy (CLEAR) 05/15/18 13:48 Urine pH 5.0 (5.0 - 8.0) 05/15/18 13:48 Ur Specific [place] 1.025 (1.000-1.030) 05/15/18 13:48 Urine Protein 4+ (NEGATIVE) 05/15/18 13:48 Urine Glucose (UA) 4+ (NEGATIVE) 05/15/18 13:48 Urine Ketones 3+ (NEGATIVE) 05/15/18 13:48 Urine Occult Blood 4+ (NEGATIVE) 05/15/18 13:48 Urine Nitrite Positive (NEGATIVE) 05/15/18 13:48 Urine Bilirubin 1+ (NEGATIVE) 05/15/18 13:48 Urine Urobilinogen 2+ (NORMAL) 05/15/18 13:48 Ur Leukocyte Esterase 1+ (NEGATIVE) 05/15/18 13:48 Urine RBC 10-20 /HPF (NONE SEEN) 05/15/18 13:48 Urine WBC 3-5 /HPF (NONE SEEN) 05/15/18 13:48 Ur Squamous Epith Cells Few /HPF (NEGATIVE) 05/15/18 13:48 Urine Bacteria 2+ /HPF (NEGATIVE) 05/15/18 13:48 Coarse Granular Casts Few /HPF (NEGATIVE) 05/15/18 13:48 Urine Mucus Moderate /HPF (NEGATIVE) 05/15/18 13:48 Ur Culture Indicated? Yes/culture set up 05/15/18 13:48 - Plan (1) Respiratory failure Status: Acute Plan: SERIAL CE AND EKG ON ADMISSION RESULTS REVIEWED WITH PT, BLOOD AND SPUTUM CULTURE COLLECTED ON ADMISSION NEGATIVE AT THIS TIME. RESP CONSULT, SUPPLEMENTAL O2 SERIAL ABD, BIPAP PRN. CXR Q AM. STRICT I & OS, CARDIAC MONITORING. IV ATBX, BLOOD SUGAR CONTROL (2) COPD (chronic obstructive pulmonary disease) Status: Chronic (3) CAD (coronary artery disease) Status: Acute (4) Hypertension Status: Chronic (5) Hyperlipidemia Status: Chronic (6) GERD (gastroesophageal reflux disease) Status: Chronic (7) COPD exacerbation Status: Acute
[2018-05-22] MEDS: PULMICORT NEB TX 0.5 MG NEB SCH ×2 (08:30→20:03)
--- NOTE | 2018-05-22 08:31 | PCM.PROG ---
Progress Note - Progress Note for Day of Date of Exam: 05/19/18 - Subjective Subjective: PT IS 63WM ADMITTED WITH ACUTE ON CHRONIC RESPIRATORY FAILURE, CURRENTLY ON BIPAP DURING THE NIGHT, ON NASAL CANULA THIS AM WITH O2 SAT'S UPPER 90'S. PT CONTINUED WITH DIFFUSE WHEEZING AND MODERATE LABORED RESP WHILE EATING AND TALKING. DISCUSSED WITH CASE MANAGEMENT CUSTODIAL PLACEMENT WHEN MEDICALLY STABLE. PT CURRENTLY ON IV ATBX, WITH SPUTUM CULTURE RESULTS NORMAL ROBERT. CONTINUE DUO NEBS AND BLOOD SUGAR CONTROL. WBC 9.2 THIS AM. - Past Medical Family Social History Past Med/Fam/Surg Hx: No changes since H&P Allergies: Allergies adhesive tape Allergy (Verified 05/15/18 12:59) Fish Containing Products Allergy (Verified 05/19/18 12:40) shrimp Allergy (Verified 05/19/18 12:40) - Review of Systems ROS: No change since H&P - Vital Signs and I&O's Vital Signs: Temperature 98 F Pulse Rate [Apical] 104 Pulse Rate 67 Respiratory Rate 22 Blood Pressure [Right Arm] 123/65 Blood Pressure 127/71 O2 Sat by Pulse Oximetry 94 Intake and Output: Intake & Output 05/19/18 05/20/18 05/21/18 05/22/18 11:59 11:59 11:59 11:59 Intake Total 2350 / 2350 760 / 760 1460 / 1460 1770 / 1770 Output Total 3100 / 3100 2300 / 2300 850 / 850 1290 / 1290 Balance -750 / -750 -1540 / -1540 610 / 610 480 / 480 - Physical Exam Oriented: Normal Eyes: Normal Ear: Normal Nose: Normal Throat: Dry Respiratory: Diminished, Wheezes, Rhonchi Cardiovascular: Tachycardia : Normal Auscultation: Bowel Sounds: Normal Skin: Normal Musculoskeletal: Back:Thoracic, Back:Lumbar Psychiatric: Anxiety Affect: Anxious Speech Pattern: Clear, Appropriate - Laboratory and Diagnostics Result Diagrams: 05/22/18 05:05 05/22/18 05:05 Labs: 05/15/18 13:38 Blood Blood Culture - Final 05/15/18 13:26 Blood Blood Culture - Final 05/17/18 10:02 Sputum - Expectorated Sputum Sputum Culture - Final 05/17/18 10:02 Sputum - Expectorated Sputum - Final 05/15/18 13:48 Urine,Catheterized Urine Culture - Final Laboratory WBC 10.1 X10^3/uL (3.6-10.0) H 05/22/18 05:05 RBC 3.67 X10^6/uL (4.7-6.0) L 05/22/18 05:05 Hgb 11.1 g/dL (13.5-18.0) L 05/22/18 05:05 Hct 32.5 % (42.0-54.0) L 05/22/18 05:05 MCV 88.5 fL (80.0-100.0) 05/22/18 05:05 MCH 30.2 pg (27.0-34.0) 05/22/18 05:05 MCHC 34.2 g/dL (33.0-35.0) 05/22/18 05:05 RDW 13.4 % (11.6-16.5) 05/22/18 05:05 Plt Count 288 X10^3/uL (150.0-450.0) 05/22/18 05:05 MPV 7.8 fL (7.4-11.0) 05/22/18 05:05 Neut % (Auto) 63.3 % (42.0-75.0) 05/22/18 05:05 Lymph % (Auto) 27.8 % (21.0-51.0) 05/22/18 05:05 [place] % (Auto) 5.8 % (0.0-13.0) 05/22/18 05:05 Eos % (Auto) 2.8 % (0.9-2.9) 05/22/18 05:05 Baso % (Auto) 0.3 % (0.2-1.0) 05/22/18 05:05 Neut # (Auto) 6.4 x10^3/uL (2.2-4.8) H 05/22/18 05:05 Lymph # (Auto) 2.8 X10^3/uL (1.3-2.9) 05/22/18 05:05 [place] # (Auto) 0.6 x10^3/uL (0.3-0.8) 05/22/18 05:05 Eos # (Auto) 0.3 x10^3/uL (0.0-0.2) H 05/22/18 05:05 Baso # (Auto) 0.0 X10^3/uL (0.0-0.1) 05/22/18 05:05 Absolute Nucleated RBC 0.0 /100WBC 05/22/18 05:05 Sample Site Lbra 05/18/18 04:46 ABG pH 7.430 (7.35-7.45) 05/18/18 04:46 ABG pCO2 70.0 mmHg (35.0-45.0) H* 05/18/18 04:46 ABG pO2 62.0 mmHg (80.0-100.0) L 05/18/18 04:46 ABG HCO3 46.5 mmol/L (22-26) H* 05/18/18 04:46 ABG O2 Saturation 92.0 % (90-100) 05/18/18 04:46 ABG Base Excess 18.6 mmol/L (-2.0-2.0) H 05/18/18 04:46 Gregory Test Na 05/18/18 04:46 A-a Gradient 207.0 mmHg 05/18/18 04:46 FiO2 50.0 05/18/18 04:46 Blood Gas Comments Sofia abg well-mtf 05/18/18 04:46 Sodium 139 mmol/L (136-145) 05/22/18 05:05 Corrected Sodium 141 mmol/L (136-145) 05/22/18 05:05 Potassium 3.7 mmol/L (3.5-5.1) 05/22/18 05:05 Chloride 100 mmol/L (98-107) 05/22/18 05:05 Carbon Dioxide 37.9 mmol/L (21-32) H 05/22/18 05:05 BUN 22 mg/dL (7-18) H 05/22/18 05:05 Creatinine 0.88 mg/dL (0.70-1.30) 05/22/18 05:05 Est GFR (MDRD) Af Amer > 60 (>60) 05/22/18 05:05 Est GFR (MDRD) Non-Af > 60 (>60) 05/22/18 05:05 Glucose 186 mg/dL (65-99) H 05/22/18 05:05 POC Glucose (mg/dL) 170 mg/dL (65-99) H 05/22/18 05:38 Calcium 8.8 mg/dL (8.5-10.1) 05/22/18 05:05 Corrected Calcium 10.5 mg/dL (8.5-10.1) H 05/22/18 05:05 Total Bilirubin 0.30 mg/dL (0.2-1.0) 05/22/18 05:05 AST 15 Units/L (15-37) 05/22/18 05:05 ALT 33 Units/L (12-78) 05/22/18 05:05 Alkaline Phosphatase 71 Units/L (46-116) 05/22/18 05:05 Creatine Kinase 97 Units/L (39-308) 05/15/18 13:26 CK-MB (CK-2) 1.9 ng/mL (0-4.0) 05/15/18 13:26 CK/CKMB % Calc 2.0 % (<4) 05/15/18 13:26 Troponin I < 0.02 ng/mL (0-1.5) 05/15/18 13:26 Total Protein 6.0 g/dL (6.4-8.2) L 05/22/18 05:05 Albumin 1.9 g/dL (3.4-5.0) L 05/22/18 05:05 Globulin 4.1 g/dL (2.5-4.5) 05/22/18 05:05 Albumin/Globulin Ratio 0.5 Ratio (1.1-2.1) L 05/22/18 05:05 Specimen Type Catherized urine 05/15/18 13:48 Urine Color Dark yellow (YELLOW) 05/15/18 13:48 Urine Appearance Hazy (CLEAR) 05/15/18 13:48 Urine pH 5.0 (5.0 - 8.0) 05/15/18 13:48 Ur Specific [place] 1.025 (1.000-1.030) 05/15/18 13:48 Urine Protein 4+ (NEGATIVE) 05/15/18 13:48 Urine Glucose (UA) 4+ (NEGATIVE) 05/15/18 13:48 Urine Ketones 3+ (NEGATIVE) 05/15/18 13:48 Urine Occult Blood 4+ (NEGATIVE) 05/15/18 13:48 Urine Nitrite Positive (NEGATIVE) 05/15/18 13:48 Urine Bilirubin 1+ (NEGATIVE) 05/15/18 13:48 Urine Urobilinogen 2+ (NORMAL) 05/15/18 13:48 Ur Leukocyte Esterase 1+ (NEGATIVE) 05/15/18 13:48 Urine RBC 10-20 /HPF (NONE SEEN) 05/15/18 13:48 Urine WBC 3-5 /HPF (NONE SEEN) 05/15/18 13:48 Ur Squamous Epith Cells Few /HPF (NEGATIVE) 05/15/18 13:48 Urine Bacteria 2+ /HPF (NEGATIVE) 05/15/18 13:48 Coarse Granular Casts Few /HPF (NEGATIVE) 05/15/18 13:48 Urine Mucus Moderate /HPF (NEGATIVE) 05/15/18 13:48 Ur Culture Indicated? Yes/culture set up 05/15/18 13:48 - Plan (1) Respiratory failure Status: Acute Plan: SERIAL CE AND EKG ON ADMISSION RESULTS REVIEWED WITH PT, BLOOD AND SPUTUM CULTURE COLLECTED ON ADMISSION NEGATIVE AT THIS TIME. RESP CONSULT, SUPPLEMENTAL O2 SERIAL ABD, BIPAP PRN. CXR Q AM. STRICT I & OS, CARDIAC MONIT ORING. IV ATBX, BLOOD SUGAR CONTROL (2) COPD (chronic obstructive pulmonary disease) Status: Chronic (3) CAD (coronary artery disease) Status: Acute (4) Hypertension Status: Chronic (5) Hyperlipidemia Status: Chronic (6) GERD (gastroesophageal reflux disease) Status: Chronic (7) COPD exacerbation Status: Acute
--- NOTE | 2018-05-22 08:32 | PCM.PROG ---
Progress Note - Progress Note for Day of Date of Exam: 05/20/18 - Subjective Subjective: PT IS 63WM ADMITTED WITH ACUTE ON CHRONIC RESPIRATORY FAILURE, CURRENTLY ON BIPAP DURING THE NIGHT, ON NASAL CANULA THIS AM WITH O2 SAT'S UPPER 90'S. PT CONTINUED WITH DIFFUSE EXPIRATORY WHEEZING AND MILDLY LABORED RESP WHILE EATING AND TALKING. GRADUAL IMPROVEMENT, PT TO AMBULATE PT. DISCUSSED WITH CASE MANAGEMENT PENITENTIARY PLACEMENT WHEN MEDICALLY STABLE. PT CURRENTLY ON IV ATBX, WITH SPUTUM CULTURE RESULTS NORMAL ROBERT. CONTINUE DUO NEBS AND BLOOD SUGAR CONTROL. WBC 11.9 THIS AM. - Past Medical Family Social History Past Med/Fam/Surg Hx: No changes since H&P Allergies: Allergies adhesive tape Allergy (Verified 05/15/18 12:59) Fish Containing Products Allergy (Verified 05/19/18 12:40) shrimp Allergy (Verified 05/19/18 12:40) - Review of Systems ROS: No change since H&P - Vital Signs and I&O's Vital Signs: Temperature 98 F Pulse Rate [Apical] 104 Pulse Rate 67 Respiratory Rate 22 Blood Pressure [Right Arm] 123/65 Blood Pressure 127/71 O2 Sat by Pulse Oximetry 94 Intake and Output: Intake & Output 05/19/18 05/20/18 05/21/18 05/22/18 11:59 11:59 11:59 11:59 Intake Total 2350 / 2350 760 / 760 1460 / 1460 1770 / 1770 Output Total 3100 / 3100 2300 / 2300 850 / 850 1290 / 1290 Balance -750 / -750 -1540 / -1540 610 / 610 480 / 480 - Physical Exam Oriented: Normal Eyes: Normal Ear: Normal Nose: Normal Throat: Dry Respiratory: Diminished, Wheezes, Rhonchi Cardiovascular: Tachycardia : Normal Auscultation: Bowel Sounds: Normal Skin: Normal Musculoskeletal: Back:Thoracic, Back:Lumbar Psychiatric: Anxiety Affect: Anxious Speech Pattern: Clear, Appropriate - Laboratory and Diagnostics Result Diagrams: 05/22/18 05:05 05/22/18 05:05 Labs: 05/15/18 13:38 Blood Blood Culture - Final 05/15/18 13:26 Blood Blood Culture - Final 05/17/18 10:02 Sputum - Expectorated Sputum Sputum Culture - Final 05/17/18 10:02 Sputum - Expectorated Sputum - Final 05/15/18 13:48 Urine,Catheterized Urine Culture - Final Laboratory WBC 10.1 X10^3/uL (3.6-10.0) H 05/22/18 05:05 RBC 3.67 X10^6/uL (4.7-6.0) L 05/22/18 05:05 Hgb 11.1 g/dL (13.5-18.0) L 05/22/18 05:05 Hct 32.5 % (42.0-54.0) L 05/22/18 05:05 MCV 88.5 fL (80.0-100.0) 05/22/18 05:05 MCH 30.2 pg (27.0-34.0) 05/22/18 05:05 MCHC 34.2 g/dL (33.0-35.0) 05/22/18 05:05 RDW 13.4 % (11.6-16.5) 05/22/18 05:05 Plt Count 288 X10^3/uL (150.0-450.0) 05/22/18 05:05 MPV 7.8 fL (7.4-11.0) 05/22/18 05:05 Neut % (Auto) 63.3 % (42.0-75.0) 05/22/18 05:05 Lymph % (Auto) 27.8 % (21.0-51.0) 05/22/18 05:05 [place] % (Auto) 5.8 % (0.0-13.0) 05/22/18 05:05 Eos % (Auto) 2.8 % (0.9-2.9) 05/22/18 05:05 Baso % (Auto) 0.3 % (0.2-1.0) 05/22/18 05:05 Neut # (Auto) 6.4 x10^3/uL (2.2-4.8) H 05/22/18 05:05 Lymph # (Auto) 2.8 X10^3/uL (1.3-2.9) 05/22/18 05:05 [place] # (Auto) 0.6 x10^3/uL (0.3-0.8) 05/22/18 05:05 Eos # (Auto) 0.3 x10^3/uL (0.0-0.2) H 05/22/18 05:05 Baso # (Auto) 0.0 X10^3/uL (0.0-0.1) 05/22/18 05:05 Absolute Nucleated RBC 0.0 /100WBC 05/22/18 05:05 Sample Site [facility] 05/18/18 04:46 ABG pH 7.430 (7.35-7.45) 05/18/18 04:46 ABG pCO2 70.0 mmHg (35.0-45.0) H* 05/18/18 04:46 ABG pO2 62.0 mmHg (80.0-100.0) L 05/18/18 04:46 ABG HCO3 46.5 mmol/L (22-26) H* 05/18/18 04:46 ABG O2 Saturation 92.0 % (90-100) 05/18/18 04:46 ABG Base Excess 18.6 mmol/L (-2.0-2.0) H 05/18/18 04:46 Gregory Test Na 05/18/18 04:46 A-a Gradient 207.0 mmHg 05/18/18 04:46 FiO2 50.0 05/18/18 04:46 Blood Gas Comments Sofia abg well-mtf 05/18/18 04:46 Sodium 139 mmol/L (136-145) 05/22/18 05:05 Corrected Sodium 141 mmol/L (136-145) 05/22/18 05:05 Potassium 3.7 mmol/L (3.5-5.1) 05/22/18 05:05 Chloride 100 mmol/L (98-107) 05/22/18 05:05 Carbon Dioxide 37.9 mmol/L (21-32) H 05/22/18 05:05 BUN 22 mg/dL (7-18) H 05/22/18 05:05 Creatinine 0.88 mg/dL (0.70-1.30) 05/22/18 05:05 Est GFR (MDRD) Af Amer > 60 (>60) 05/22/18 05:05 Est GFR (MDRD) Non-Af > 60 (>60) 05/22/18 05:05 Glucose 186 mg/dL (65-99) H 05/22/18 05:05 POC Glucose (mg/dL) 170 mg/dL (65-99) H 05/22/18 05:38 Calcium 8.8 mg/dL (8.5-10.1) 05/22/18 05:05 Corrected Calcium 10.5 mg/dL (8.5-10.1) H 05/22/18 05:05 Total Bilirubin 0.30 mg/dL (0.2-1.0) 05/22/18 05:05 AST 15 Units/L (15-37) 05/22/18 05:05 ALT 33 Units/L (12-78) 05/22/18 05:05 Alkaline Phosphatase 71 Units/L (46-116) 05/22/18 05:05 Creatine Kinase 97 Units/L (39-308) 05/15/18 13:26 CK-MB (CK-2) 1.9 ng/mL (0-4.0) 05/15/18 13:26 CK/CKMB % Calc 2.0 % (<4) 05/15/18 13:26 Troponin I < 0.02 ng/mL (0-1.5) 05/15/18 13:26 Total Protein 6.0 g/dL (6.4-8.2) L 05/22/18 05:05 Albumin 1.9 g/dL (3.4-5.0) L 05/22/18 05:05 Globulin 4.1 g/dL (2.5-4.5) 05/22/18 05:05 Albumin/Globulin Ratio 0.5 Ratio (1.1-2.1) L 05/22/18 05:05 Specimen Type Catherized urine 05/15/18 13:48 Urine Color Dark yellow (YELLOW) 05/15/18 13:48 Urine Appearance Hazy (CLEAR) 05/15/18 13:48 Urine pH 5.0 (5.0 - 8.0) 05/15/18 13:48 Ur Specific [place] 1.025 (1.000-1.030) 05/15/18 13:48 Urine Protein 4+ (NEGATIVE) 05/15/18 13:48 Urine Glucose (UA) 4+ (NEGATIVE) 05/15/18 13:48 Urine Ketones 3+ (NEGATIVE) 05/15/18 13:48 Urine Occult Blood 4+ (NEGATIVE) 05/15/18 13:48 Urine Nitrite Positive (NEGATIVE) 05/15/18 13:48 Urine Bilirubin 1+ (NEGATIVE) 05/15/18 13:48 Urine Urobilinogen 2+ (NORMAL) 05/15/18 13:48 Ur Leukocyte Esterase 1+ (NEGATIVE) 05/15/18 13:48 Urine RBC 10-20 /HPF (NONE SEEN) 05/15/18 13:48 Urine WBC 3-5 /HPF (NONE SEEN) 05/15/18 13:48 Ur Squamous Epith Cells Few /HPF (NEGATIVE) 05/15/18 13:48 Urine Bacteria 2+ /HPF (NEGATIVE) 05/15/18 13:48 Coarse Granular Casts Few /HPF (NEGATIVE) 05/15/18 13:48 Urine Mucus Moderate /HPF (NEGATIVE) 05/15/18 13:48 Ur Culture Indicated? Yes/culture set up 05/15/18 13:48 - Plan (1) Respiratory failure Status: Acute Plan: SERIAL CE AND EKG ON ADMISSION RESULTS REVIEWED WITH PT, BLOOD AND SPUTUM CULTURE COLLECTED ON ADMISSION NEGATIVE AT THIS TIME. RESP CONSULT, SUPPLEMENTAL O2 SERIAL ABD, BIPAP PRN. CXR Q AM. STRICT I & OS, CARDIAC MONITORING. IV ATBX, BLOOD SUGAR CONTROL (2) COPD (chronic obstructive pulmonary disease) Status: Chronic (3) CAD (coronary artery disease) Status: Acute (4) Hypertension Status: Chronic (5) Hyperlipidemia Status: Chronic (6) GERD (gastroesophageal reflux disease) Status: Chronic (7) COPD exacerbation Status: Acute
--- NOTE | 2018-05-22 08:34 | PCM.PROG ---
Progress Note - Progress Note for Day of Date of Exam: 05/21/18 - Subjective Subjective: PT IS 63WM ADMITTED WITH ACUTE ON CHRONIC RESPIRATORY FAILURE, CURRENTLY ON BIPAP DURING THE NIGHT, ON NASAL CANULA THIS AM WITH O2 SAT'S UPPER 90'S. PT CONTINUED WITH DIFFUSE EXPIRATORY WHEEZING AND MILDLY LABORED RESP WHILE EATING AND TALKING. GRADUAL IMPROVEMENT, PT TO AMBULATE PT. PT STATES HE DOES FEEL BETTER, CONTINUES WITH GENERALIZED WEAKNESS. DISCUSSED WITH CASE MANAGEMENT RETIREMENT PLACEMENT WHEN MEDICALLY STABLE. PT CURRENTLY ON IV ATBX, WITH SPUTUM CULTURE RESULTS NORMAL ROBERT. CONTINUE DUO NEBS AND BLOOD SUGAR CONTROL. WBC 9.5 THIS AM. - Past Medical Family Social History Past Med/Fam/Surg Hx: No changes since H&P Allergies: Allergies adhesive tape Allergy (Verified 05/15/18 12:59) Fish Containing Products Allergy (Verified 05/19/18 12:40) shrimp Allergy (Verified 05/19/18 12:40) - Review of Systems ROS: No change since H&P - Vital Signs and I&O's Vital Signs: Temperature 98 F Pulse Rate [Apical] 104 Pulse Rate 67 Respiratory Rate 22 Blood Pressure [Right Arm] 123/65 Blood Pressure 127/71 O2 Sat by Pulse Oximetry 94 Intake and Output: Intake & Output 05/19/18 05/20/18 05/21/18 05/22/18 11:59 11:59 11:59 11:59 Intake Total 2350 / 2350 760 / 760 1460 / 1460 1770 / 1770 Output Total 3100 / 3100 2300 / 2300 850 / 850 1290 / 1290 Balance -750 / -750 -1540 / -1540 610 / 610 480 / 480 - Physical Exam Oriented: Normal Eyes: Normal Ear: Normal Nose: Normal Throat: Dry Respiratory: Diminished, Wheezes, Rhonchi Cardiovascular: Tachycardia : Normal Auscultation: Bowel Sounds: Normal Skin: Normal Musculoskeletal: Back:Thoracic, Back:Lumbar Psychiatric: Anxiety Affect: Anxious Speech Pattern: Clear, Appropriate - Laboratory and Diagnostics Result Diagrams: 05/22/18 05:05 05/22/18 05:05 Labs: 05/15/18 13:38 Blood Blood Culture - Final 05/15/18 13:26 Blood Blood Culture - Final 05/17/18 10:02 Sputum - Expectorated Sputum Sputum Culture - Final 05/17/18 10:02 Sputum - Expectorated Sputum - Final 05/15/18 13:48 Urine,Catheterized Urine Culture - Final Laboratory WBC 10.1 X10^3/uL (3.6-10.0) H 05/22/18 05:05 RBC 3.67 X10^6/uL (4.7-6.0) L 05/22/18 05:05 Hgb 11.1 g/dL (13.5-18.0) L 05/22/18 05:05 Hct 32.5 % (42.0-54.0) L 05/22/18 05:05 MCV 88.5 fL (80.0-100.0) 05/22/18 05:05 MCH 30.2 pg (27.0-34.0) 05/22/18 05:05 MCHC 34.2 g/dL (33.0-35.0) 05/22/18 05:05 RDW 13.4 % (11.6-16.5) 05/22/18 05:05 Plt Count 288 X10^3/uL (150.0-450.0) 05/22/18 05:05 MPV 7.8 fL (7.4-11.0) 05/22/18 05:05 Neut % (Auto) 63.3 % (42.0-75.0) 05/22/18 05:05 Lymph % (Auto) 27.8 % (21.0-51.0) 05/22/18 05:05 [place] % (Auto) 5.8 % (0.0-13.0) 05/22/18 05:05 Eos % (Auto) 2.8 % (0.9-2.9) 05/22/18 05:05 Baso % (Auto) 0.3 % (0.2-1.0) 05/22/18 05:05 Neut # (Auto) 6.4 x10^3/uL (2.2-4.8) H 05/22/18 05:05 Lymph # (Auto) 2.8 X10^3/uL (1.3-2.9) 05/22/18 05:05 [place] # (Auto) 0.6 x10^3/uL (0.3-0.8) 05/22/18 05:05 Eos # (Auto) 0.3 x10^3/uL (0.0-0.2) H 05/22/18 05:05 Baso # (Auto) 0.0 X10^3/uL (0.0-0.1) 05/22/18 05:05 Absolute Nucleated RBC 0.0 /100WBC 05/22/18 05:05 Sample Site Lbra 05/18/18 04:46 ABG pH 7.430 (7.35-7.45) 05/18/18 04:46 ABG pCO2 70.0 mmHg (35.0-45.0) H* 05/18/18 04:46 ABG pO2 62.0 mmHg (80.0-100.0) L 05/18/18 04:46 ABG HCO3 46.5 mmol/L (22-26) H* 05/18/18 04:46 ABG O2 Saturation 92.0 % (90-100) 05/18/18 04:46 ABG Base Excess 18.6 mmol/L (-2.0-2.0) H 05/18/18 04:46 Gregory Test Na 05/18/18 04:46 A-a Gradient 207.0 mmHg 05/18/18 04:46 FiO2 50.0 05/18/18 04:46 Blood Gas Comments Sofia abg well-mtf 05/18/18 04:46 Sodium 139 mmol/L (136-145) 05/22/18 05:05 Corrected Sodium 141 mmol/L (136-145) 05/22/18 05:05 Potassium 3.7 mmol/L (3.5-5.1) 05/22/18 05:05 Chloride 100 mmol/L (98-107) 05/22/18 05:05 Carbon Dioxide 37.9 mmol/L (21-32) H 05/22/18 05:05 BUN 22 mg/dL (7-18) H 05/22/18 05:05 Creatinine 0.88 mg/dL (0.70-1.30) 05/22/18 05:05 Est GFR (MDRD) Af Amer > 60 (>60) 05/22/18 05:05 Est GFR (MDRD) Non-Af > 60 (>60) 05/22/18 05:05 Glucose 186 mg/dL (65-99) H 05/22/18 05:05 POC Glucose (mg/dL) 170 mg/dL (65-99) H 05/22/18 05:38 Calcium 8.8 mg/dL (8.5-10.1) 05/22/18 05:05 Corrected Calcium 10.5 mg/dL (8.5-10.1) H 05/22/18 05:05 Total Bilirubin 0.30 mg/dL (0.2-1.0) 05/22/18 05:05 AST 15 Units/L (15-37) 05/22/18 05:05 ALT 33 Units/L (12-78) 05/22/18 05:05 Alkaline Phosphatase 71 Units/L (46-116) 05/22/18 05:05 Creatine Kinase 97 Units/L (39-308) 05/15/18 13:26 CK-MB (CK-2) 1.9 ng/mL (0-4.0) 05/15/18 13:26 CK/CKMB % Calc 2.0 % (<4) 05/15/18 13:26 Troponin I < 0.02 ng/mL (0-1.5) 05/15/18 13:26 Total Protein 6.0 g/dL (6.4-8.2) L 05/22/18 05:05 Albumin 1.9 g/dL (3.4-5.0) L 05/22/18 05:05 Globulin 4.1 g/dL (2.5-4.5) 05/22/18 05:05 Albumin/Globulin Ratio 0.5 Ratio (1.1-2.1) L 05/22/18 05:05 Specimen Type Catherized urine 05/15/18 13:48 Urine Color Dark yellow (YELLOW) 05/15/18 13:48 Urine Appearance Hazy (CLEAR) 05/15/18 13:48 Urine pH 5.0 (5.0 - 8.0) 05/15/18 13:48 Ur Specific [place] 1.025 (1.000-1.030) 05/15/18 13:48 Urine Protein 4+ (NEGATIVE) 05/15/18 13:48 Urine Glucose (UA) 4+ (NEGATIVE) 05/15/18 13:48 Urine Ketones 3+ (NEGATIVE) 05/15/18 13:48 Urine Occult Blood 4+ (NEGATIVE) 05/15/18 13:48 Urine Nitrite Positive (NEGATIVE) 05/15/18 13:48 Urine Bilirubin 1+ (NEGATIVE) 05/15/18 13:48 Urine Urobilinogen 2+ (NORMAL) 05/15/18 13:48 Ur Leukocyte Esterase 1+ (NEGATIVE) 05/15/18 13:48 Urine RBC 10-20 /HPF (NONE SEEN) 05/15/18 13:48 Urine WBC 3-5 /HPF (NONE SEEN) 05/15/18 13:48 Ur Squamous Epith Cells Few /HPF (NEGATIVE) 05/15/18 13:48 Urine Bacteria 2+ /HPF (NEGATIVE) 05/15/18 13:48 Coarse Granular Casts Few /HPF (NEGATIVE) 05/15/18 13:48 Urine Mucus Moderate /HPF (NEGATIVE) 05/15/18 13:48 Ur Culture Indicated? Yes/culture set up 05/15/18 13:48 - Plan (1) Respiratory failure Status: Acute Plan: SERIAL CE AND EKG ON ADMISSION RESULTS REVIEWED WITH PT, BLOOD AND SPUTUM CULTURE COLLECTED ON ADMISSION NEGATIVE AT THIS TIME. RESP CONSULT, SUPPLEMENTAL O2 SERIAL ABG, BIPAP PRN. CXR Q AM. STRICT I & OS, CARDIAC MONITORING. IV ATBX, BLOOD SUGAR CONTROL (2) COPD (chronic obstructive pulmonary disease) Status: Chronic (3) CAD (coronary artery disease) Status: Acute (4) Hypertension Status: Chronic (5) Hyperlipidemia Status: Chronic (6) GERD (gastroesophageal reflux disease) Status: Chronic (7) COPD exacerbation Status: Acute
[2018-05-22] MEDS: COREG TAB 6.25 MG PO SCH ×2 (08:51→20:51)
[2018-05-22] MEDS: LEVEMIR SC SCH ×2 (08:51→20:51)
[2018-05-22] MEDS: ASPIRIN 81 MG CHEWTAB PO SCH (08:51)
[2018-05-22] MEDS: LASIX PO SCH (08:51)
[2018-05-22] MEDS: PLAVIX PO SCH (08:52)
[2018-05-22] MEDS: PriLOSEC PO SCH (08:52)
[2018-05-22] MEDS: ROCEPHIN VIAL 1 GRAM IVP SCH (08:53)
[2018-05-22] MEDS: NORCO 10/325 TAB PO PRN (12:27)
[2018-05-22] MEDS: BROVANA IN SCH ×2 (12:40→20:03)
[2018-05-22] MEDS ORDERED: LASIX IVP ONE (12:49)
--- NOTE | 2018-05-22 17:30 | PCM.PROG ---
Progress Note - Progress Note for Day of Date of Exam: 05/22/18 - Subjective Subjective: PT IS 63WM ADMITTED WITH ACUTE ON CHRONIC RESPIRATORY FAILURE, CURRENTLY ON BIPAP DURING THE NIGHT, ON NASAL CANULA THIS AM WITH O2 SAT'S UPPER 90'S. PT CONTINUED WITH DIFFUSE EXPIRATORY WHEEZING AND MILDLY LABORED RESP WHILE EATING AND TALKING. GRADUAL IMPROVEMENT, PT TO AMBULATE PT. PT STATES HE DOES FEEL BETTER, CONTINUES WITH GENERALIZED WEAKNESS. DISCUSSED WITH CASE MANAGEMENT [facility] PLACEMENT WHEN MEDICALLY STABLE. PT CURRENTLY ON IV ATBX, WITH SPUTUM CULTURE RESULTS NORMAL ROBERT. CONTINUE DUO NEBS AND BLOOD SUGAR CONTROL. - Past Medical Family Social History Past Med/Fam/Surg Hx: No changes since H&P Allergies: Allergies adhesive tape Allergy (Verified 05/15/18 12:59) Fish Containing Products Allergy (Verified 05/19/18 12:40) shrimp Allergy (Verified 05/19/18 12:40) - Review of Systems ROS: No change since H&P - Vital Signs and I&O's Vital Signs: Temperature 98.2 F Pulse Rate [Apical] 104 Pulse Rate 81 Respiratory Rate 20 Blood Pressure [Right Arm] 123/65 Blood Pressure 109/65 O2 Sat by Pulse Oximetry 97 Intake and Output: Intake & Output 05/20/18 05/21/18 05/22/18 05/23/18 11:59 11:59 11:59 11:59 Intake Total 760 / 760 1460 / 1460 1770 / 1770 874 / 874 Output Total 2300 / 2300 850 / 850 1290 / 1290 1200 / 1200 Balance -1540 / -1540 610 / 610 480 / 480 -326 / -326 - Physical Exam Oriented: Normal Eyes: Normal Ear: Normal Nose: Normal Throat: Dry Respiratory: Diminished, Wheezes, Rhonchi Cardiovascular: Tachycardia : Normal Auscultation: Bowel Sounds: Normal Skin: Normal Musculoskeletal: Back:Thoracic, Back:Lumbar Psychiatric: Anxiety Affect: Anxious Speech Pattern: Clear, Appropriate - Laboratory and Diagnostics Result Diagrams: 05/22/18 05:05 05/22/18 05:05 Labs: 05/15/18 13:38 Blood Blood Culture - Final 05/15/18 13:26 Blood Blood Culture - Final 05/17/18 10:02 Sputum - Expectorated Sputum Sputum Culture - Final 05/17/18 10:02 Sputum - Expectorated Sputum - Final 05/15/18 13:48 Urine,Catheterized Urine Culture - Final Laboratory WBC 10.1 X10^3/uL (3.6-10.0) H 05/22/18 05:05 RBC 3.67 X10^6/uL (4.7-6.0) L 05/22/18 05:05 Hgb 11.1 g/dL (13.5-18.0) L 05/22/18 05:05 Hct 32.5 % (42.0-54.0) L 05/22/18 05:05 MCV 88.5 fL (80.0-100.0) 05/22/18 05:05 MCH 30.2 pg (27.0-34.0) 05/22/18 05:05 MCHC 34.2 g/dL (33.0-35.0) 05/22/18 05:05 RDW 13.4 % (11.6-16.5) 05/22/18 05:05 Plt Count 288 X10^3/uL (150.0-450.0) 05/22/18 05:05 MPV 7.8 fL (7.4-11.0) 05/22/18 05:05 Neut % (Auto) 63.3 % (42.0-75.0) 05/22/18 05:05 Lymph % (Auto) 27.8 % (21.0-51.0) 05/22/18 05:05 [place] % (Auto) 5.8 % (0.0-13.0) 05/22/18 05:05 Eos % (Auto) 2.8 % (0.9-2.9) 05/22/18 05:05 Baso % (Auto) 0.3 % (0.2-1.0) 05/22/18 05:05 Neut # (Auto) 6.4 x10^3/uL (2.2-4.8) H 05/22/18 05:05 Lymph # (Auto) 2.8 X10^3/uL (1.3-2.9) 05/22/18 05:05 [place] # (Auto) 0.6 x10^3/uL (0.3-0.8) 05/22/18 05:05 Eos # (Auto) 0.3 x10^3/uL (0.0-0.2) H 05/22/18 05:05 Baso # (Auto) 0.0 X10^3/uL (0.0-0.1) 05/22/18 05:05 Absolute Nucleated RBC 0.0 /100WBC 05/22/18 05:05 Sample Site Lbra 05/18/18 04:46 ABG pH 7.430 (7.35-7.45) 05/18/18 04:46 ABG pCO2 70.0 mmHg (35.0-45.0) H* 05/18/18 04:46 ABG pO2 62.0 mmHg (80.0-100.0) L 05/18/18 04:46 ABG HCO3 46.5 mmol/L (22-26) H* 05/18/18 04:46 ABG O2 Saturation 92.0 % (90-100) 05/18/18 04:46 ABG Base Excess 18.6 mmol/L (-2.0-2.0) H 05/18/18 04:46 Gregory Test Na 05/18/18 04:46 A-a Gradient 207.0 mmHg 05/18/18 04:46 FiO2 50.0 05/18/18 04:46 Blood Gas Comments Sofia abg well-mtf 05/18/18 04:46 Sodium 139 mmol/L (136-145) 05/22/18 05:05 Corrected Sodium 141 mmol/L (136-145) 05/22/18 05:05 Potassium 3.7 mmol/L (3.5-5.1) 05/22/18 05:05 Chloride 100 mmol/L (98-107) 05/22/18 05:05 Carbon Dioxide 37.9 mmol/L (21-32) H 05/22/18 05:05 BUN 22 mg/dL (7-18) H 05/22/18 05:05 Creatinine 0.88 mg/dL (0.70-1.30) 05/22/18 05:05 Est GFR (MDRD) Af Amer > 60 (>60) 05/22/18 05:05 Est GFR (MDRD) Non-Af > 60 (>60) 05/22/18 05:05 Glucose 186 mg/dL (65-99) H 05/22/18 05:05 POC Glucose (mg/dL) 142 mg/dL (65-99) H 05/22/18 15:30 Calcium 8.8 mg/dL (8.5-10.1) 05/22/18 05:05 Corrected Calcium 10.5 mg/dL (8.5-10.1) H 05/22/18 05:05 Total Bilirubin 0.30 mg/dL (0.2-1.0) 05/22/18 05:05 AST 15 Units/L (15-37) 05/22/18 05:05 ALT 33 Units/L (12-78) 05/22/18 05:05 Alkaline Phosphatase 71 Units/L (46-116) 05/22/18 05:05 Creatine Kinase 97 Units/L (39-308) 05/15/18 13:26 CK-MB (CK-2) 1.9 ng/mL (0-4.0) 05/15/18 13:26 CK/CKMB % Calc 2.0 % (<4) 05/15/18 13:26 Troponin I < 0.02 ng/mL (0-1.5) 05/15/18 13:26 Total Protein 6.0 g/dL (6.4-8.2) L 05/22/18 05:05 Albumin 1.9 g/dL (3.4-5.0) L 05/22/18 05:05 Globulin 4.1 g/dL (2.5-4.5) 05/22/18 05:05 Albumin/Globulin Ratio 0.5 Ratio (1.1-2.1) L 05/22/18 05:05 Specimen Type Catherized urine 05/15/18 13:48 Urine Color Dark yellow (YELLOW) 05/15/18 13:48 Urine Appearance Hazy (CLEAR) 05/15/18 13:48 Urine pH 5.0 (5.0 - 8.0) 05/15/18 13:48 Ur Specific [place] 1.025 (1.000-1.030) 05/15/18 13:48 Urine Protein 4+ (NEGATIVE) 05/15/18 13:48 Urine Glucose (UA) 4+ (NEGATIVE) 05/15/18 13:48 Urine Ketones 3+ (NEGATIVE) 05/15/18 13:48 Urine Occult Blood 4+ (NEGATIVE) 05/15/18 13:48 Urine Nitrite Positive (NEGATIVE) 05/15/18 13:48 Urine Bilirubin 1+ (NEGATIVE) 05/15/18 13:48 Urine Urobilinogen 2+ (NORMAL) 05/15/18 13:48 Ur Leukocyte Esterase 1+ (NEGATIVE) 05/15/18 13:48 Urine RBC 10-20 /HPF (NONE SEEN) 05/15/18 13:48 Urine WBC 3-5 /HPF (NONE SEEN) 05/15/18 13:48 Ur Squamous Epith Cells Few /HPF (NEGATIVE) 05/15/18 13:48 Urine Bacteria 2+ /HPF (NEGATIVE) 05/15/18 13:48 Coarse Granular Casts Few /HPF (NEGATIVE) 05/15/18 13:48 Urine Mucus Moderate /HPF (NEGATIVE) 05/15/18 13:48 Ur Culture Indicated? Yes/culture set up 05/15/18 13:48 - Plan (1) Respiratory failure Status: Acute Plan: SERIAL CE AND EKG ON ADMISSION RESULTS REVIEWED WITH PT, BLOOD AND SPUTUM CULTURE COLLECTED ON ADMISSION NEGATIVE AT THIS TIME. RESP CONSULT, SUPPLEMENTAL O2 SERIAL ABG, BIPAP PRN. CXR Q AM. STRICT I & OS, CARDIAC MONIT ORING. IV ATBX, BLOOD SUGAR CONTROL (2) COPD (chronic obstructive pulmonary disease) Status: Chronic (3) CAD (coronary artery disease) Status: Acute (4) Hypertension Status: Chronic (5) Hyperlipidemia Status: Chronic (6) GERD (gastroesophageal reflux disease) Status: Chronic (7) COPD exacerbation Status: Acute
[2018-05-22 17:50] LABS: BILIRUBIN,URINE NEGATIVE (NEGATIVE); BLOOD/HEMOGLOBIN,URINE 1+ (NEGATIVE); GLUCOSE, URINE NEGATIVE (NEGATIVE); KETONES,URINE NEGATIVE (NEGATIVE); LEUKOCYTE ESTERASE ,URINE NEGATIVE (NEGATIVE); NITRITES,URINE NEGATIVE (NEGATIVE); PROTEIN,URINE NEGATIVE (NEGATIVE); UROBILINOGEN,URINE NORMAL (NORMAL)
[2018-05-22 17:52] LABS: APPEARANCE,URINE CLEAR (CLEAR); COLOR,URINE YELLOW (YELLOW)
[2018-05-22 17:56] LABS: RBC,URINE 0-2 /HPF (NONE SEEN)
[2018-05-22 17:57] LABS: BACTERIA,URINE NEGATIVE /HPF (NEGATIVE); SQUAMOUS EPITHELIAL CELL,UR NEGATIVE /HPF (NEGATIVE)
[2018-05-22] MEDS: LIPITOR TAB 40 MG PO SCH (20:51)
[2018-05-22] MEDS: SNACK - Diabetic Appropriate PO SCH (20:52)
[2018-05-23] MEDS: DUONEB 0.5 MG/3 MG NEB SCH ×6 (01:11→20:00)
[2018-05-23 05:31] LABS: BASOPHILS % (AUTO) 0.3 % (0.2-1.0); EOSINOPHILS # (AUTO) 0.3 x10^3/uL (0.0-0.2); EOSINOPHILS % (AUTO) 2.4 % (0.9-2.9); HEMATOCRIT 35.4 % (42.0-54.0); HEMOGLOBIN 11.8 g/dL (13.5-18.0); LYMPHOCYTES # (AUTO) 2.6 X10^3/uL (1.3-2.9); LYMPHOCYTES % (AUTO) 22.8 % (21.0-51.0); MEAN CORPUSCULAR HGB CONC 33.3 g/dL (33.0-35.0); MONOCYTES # (AUTO) 0.7 x10^3/uL (0.3-0.8); MONOCYTES % (AUTO) 5.8 % (0.0-13.0); NEUTROPHILS # (AUTO) 7.9 x10^3/uL (2.2-4.8); NEUTROPHILS % (AUTO) 68.7 % (42.0-75.0); PLATELET COUNT 319 X10^3/uL (150.0-450.0); RED BLOOD COUNT 3.93 X10^6/uL (4.7-6.0); RED CELL DISTRIBUTION WIDTH 13.5 % (11.6-16.5); WHITE BLOOD COUNT 11.5 X10^3/uL (3.6-10.0)
[2018-05-23 05:49] LABS: ALANINE AMINOTRANSFERASE 34 Units/L (12-78); ALKALINE PHOSPHATASE 77 Units/L (46-116); ASPARTATE AMINO TRANSFERASE 16 Units/L (15-37); BLOOD UREA NITROGEN 23 mg/dL (7-18); CHLORIDE 97 mmol/L (98-107); COR CA(FOR HYPOALB) 10.6 mg/dL (8.5-10.1); COR NA(FOR HYPERGLY) 142 mmol/L (136-145); CREATININE 1.09 mg/dL (0.70-1.30); SODIUM 138 mmol/L (136-145); TOTAL PROTEIN 6.5 g/dL (6.4-8.2); eGFR NON BLACK RACES > 60 (>60)
[2018-05-23 05:57] LABS: CARBON DIOXIDE 40.8 mmol/L (21-32)
[2018-05-23] MEDS: HumuLIN R SUBCUT PRN ×3 (06:09→17:11)
[2018-05-23] MEDS: NEURONTIN CAP 300 MG PO SCH ×3 (06:09→22:30)
[2018-05-23] MEDS: PULMICORT NEB TX 0.5 MG NEB SCH ×2 (08:46→20:00)
[2018-05-23] MEDS: BROVANA IN SCH ×2 (08:46→20:00)
[2018-05-23 08:48] LABS: ABG BASE EXCESS 18.4 mmol/L (-2.0-2.0)
[2018-05-23 08:50] LABS: ABG HCO3 45.5 mmol/L (22-26)
[2018-05-23] MEDS: LASIX PO SCH (09:06)
[2018-05-23] MEDS: PriLOSEC PO SCH (09:06)
[2018-05-23] MEDS: COREG TAB 6.25 MG PO SCH ×2 (09:06→20:41)
[2018-05-23] MEDS: MILK OF MAGNESIA PO SCH ×2 (09:06→20:42)
[2018-05-23] MEDS: ROCEPHIN VIAL 1 GRAM IVP SCH (09:07)
[2018-05-23] MEDS: ASPIRIN 81 MG CHEWTAB PO SCH (09:07)
[2018-05-23] MEDS: LEVEMIR SC SCH ×2 (09:08→20:40)
[2018-05-23] MEDS: PLAVIX PO SCH (09:12)
--- NOTE | 2018-05-23 13:36 | PCM.PROG ---
Progress Note - Progress Note for Day of Date of Exam: 05/23/18 - Subjective Subjective: PT IS 63WM ADMITTED WITH ACUTE ON CHRONIC RESPIRATORY FAILURE, CURRENTLY ON BIPAP DURING THE NIGHT, ON NASAL CANULA THIS AM WITH O2 SAT'S UPPER 90'S. PT CONTINUED WITH DIFFUSE EXPIRATORY WHEEZING AND MILDLY LABORED RESP WHILE EATING AND TALKING. GRADUAL IMPROVEMENT, PT TO AMBULATE PT. PT STATES HE DOES FEEL BETTER, CONTINUES WITH GENERALIZED WEAKNESS. DISCUSSED WITH CASE MANAGEMENT PRISON PLACEMENT WHEN MEDICALLY STABLE. PT CURRENTLY ON IV ATBX, WITH SPUTUM CULTURE RESULTS NORMAL ROBERT. CONTINUE DUO NEBS AND BLOOD SUGAR CONTROL. REPEAT ABG THIS AM CO264, PO2 59 ON NC. - Past Medical Family Social History Past Med/Fam/Surg Hx: No changes since H&P Allergies: Allergies adhesive tape Allergy (Verified 05/15/18 12:59) Fish Containing Products Allergy (Verified 05/19/18 12:40) shrimp Allergy (Verified 05/19/18 12:40) - Review of Systems ROS: No change since H&P - Vital Signs and I&O's Vital Signs: Temperature 97.6 F Pulse Rate [Apical] 104 Pulse Rate 79 Respiratory Rate 20 Blood Pressure [Right Arm] 123/65 Blood Pressure 110/55 O2 Sat by Pulse Oximetry 92 Intake and Output: Intake & Output 05/21/18 05/22/18 05/23/18 05/24/18 11:59 11:59 11:59 11:59 Intake Total 1460 / 1460 1770 / 1770 1794 / 1794 Output Total 850 / 850 1290 / 1290 2575 / 2575 Balance 610 / 610 480 / 480 -781 / -781 - Physical Exam Oriented: Normal Eyes: Normal Ear: Normal Nose: Normal Throat: Dry Respiratory: Diminished, Wheezes, Rhonchi Cardiovascular: Tachycardia : Normal Auscultation: Bowel Sounds: Normal Skin: Normal Musculoskeletal: Back:Thoracic, Back:Lumbar Psychiatric: Anxiety Affect: Anxious Speech Pattern: Clear, Appropriate - Laboratory and Diagnostics Result Diagrams: 05/23/18 04:30 05/23/18 04:30 Labs: 05/15/18 13:38 Blood Blood Culture - Final 05/15/18 13:26 Blood Blood Culture - Final 05/17/18 10:02 Sputum - Expectorated Sputum Sputum Culture - Final 05/17/18 10:02 Sputum - Expectorated Sputum - Final 05/15/18 13:48 Urine,Catheterized Urine Culture - Final Laboratory WBC 11.5 X10^3/uL (3.6-10.0) H 05/23/18 04:30 RBC 3.93 X10^6/uL (4.7-6.0) L 05/23/18 04:30 Hgb 11.8 g/dL (13.5-18.0) L 05/23/18 04:30 Hct 35.4 % (42.0-54.0) L 05/23/18 04:30 MCV 90.0 fL (80.0-100.0) 05/23/18 04:30 MCH 30.0 pg (27.0-34.0) 05/23/18 04:30 MCHC 33.3 g/dL (33.0-35.0) 05/23/18 04:30 RDW 13.5 % (11.6-16.5) 05/23/18 04:30 Plt Count 319 X10^3/uL (150.0-450.0) 05/23/18 04:30 MPV 8.0 fL (7.4-11.0) 05/23/18 04:30 Neut % (Auto) 68.7 % (42.0-75.0) 05/23/18 04:30 Lymph % (Auto) 22.8 % (21.0-51.0) 05/23/18 04:30 [place] % (Auto) 5.8 % (0.0-13.0) 05/23/18 04:30 Eos % (Auto) 2.4 % (0.9-2.9) 05/23/18 04:30 Baso % (Auto) 0.3 % (0.2-1.0) 05/23/18 04:30 Neut # (Auto) 7.9 x10^3/uL (2.2-4.8) H 05/23/18 04:30 Lymph # (Auto) 2.6 X10^3/uL (1.3-2.9) 05/23/18 04:30 [place] # (Auto) 0.7 x10^3/uL (0.3-0.8) 05/23/18 04:30 Eos # (Auto) 0.3 x10^3/uL (0.0-0.2) H 05/23/18 04:30 Baso # (Auto) 0.0 X10^3/uL (0.0-0.1) 05/23/18 04:30 Absolute Nucleated RBC 0.1 /100WBC 05/23/18 04:30 Sample Site Rbra 05/23/18 08:43 ABG pH 7.460 (7.35-7.45) H 05/23/18 08:43 ABG pCO2 64.0 mmHg (35.0-45.0) H* 05/23/18 08:43 ABG pO2 59.0 mmHg (80.0-100.0) L 05/23/18 08:43 ABG HCO3 45.5 mmol/L (22-26) H* 05/23/18 08:43 ABG O2 Saturation 92.0 % (90-100) 05/23/18 08:43 ABG Base Excess 18.4 mmol/L (-2.0-2.0) H 05/23/18 08:43 Gregory Test Na 05/23/18 08:43 A-a Gradient 89.0 mmHg 05/23/18 08:43 FiO2 32.0 05/23/18 08:43 Blood Gas Comments Sofia well gmb 05/23/18 08:43 Sodium 138 mmol/L (136-145) 05/23/18 04:30 Corrected Sodium 142 mmol/L (136-145) 05/23/18 04:30 Potassium 3.8 mmol/L (3.5-5.1) 05/23/18 04:30 Chloride 97 mmol/L (98-107) L 05/23/18 04:30 Carbon Dioxide 40.8 mmol/L (21-32) H* 05/23/18 04:30 BUN 23 mg/dL (7-18) H 05/23/18 04:30 Creatinine 1.09 mg/dL (0.70-1.30) 05/23/18 04:30 Est GFR (MDRD) Af Amer > 60 (>60) 05/23/18 04:30 Est GFR (MDRD) Non-Af > 60 (>60) 05/23/18 04:30 Glucose 276 mg/dL (65-99) H 05/23/18 04:30 POC Glucose (mg/dL) 272 mg/dL (65-99) H 05/23/18 11:35 Calcium 9.0 mg/dL (8.5-10.1) 05/23/18 04:30 Corrected Calcium 10.6 mg/dL (8.5-10.1) H 05/23/18 04:30 Total Bilirubin 0.20 mg/dL (0.2-1.0) 05/23/18 04:30 AST 16 Units/L (15-37) 05/23/18 04:30 ALT 34 Units/L (12-78) 05/23/18 04:30 Alkaline Phosphatase 77 Units/L (46-116) 05/23/18 04:30 Creatine Kinase 97 Units/L (39-308) 05/15/18 13:26 CK-MB (CK-2) 1.9 ng/mL (0-4.0) 05/15/18 13:26 CK/CKMB % Calc 2.0 % (<4) 05/15/18 13:26 Troponin I < 0.02 ng/mL (0-1.5) 05/15/18 13:26 Total Protein 6.5 g/dL (6.4-8.2) 05/23/18 04:30 Albumin 2.0 g/dL (3.4-5.0) L 05/23/18 04:30 Globulin 4.5 g/dL (2.5-4.5) 05/23/18 04:30 Albumin/Globulin Ratio 0.4 Ratio (1.1-2.1) L 05/23/18 04:30 Specimen Type Catherized urine 05/22/18 17:35 Urine Color Yellow (YELLOW) 05/22/18 17:35 Urine Appearance Clear (CLEAR) 05/22/18 17:35 Urine pH 6.0 (5.0 - 8.0) 05/22/18 17:35 Ur Specific [place] 1.010 (1.000-1.030) 05/22/18 17:35 Urine Protein Negative (NEGATIVE) 05/22/18 17:35 Urine Glucose (UA) Negative (NEGATIVE) 05/22/18 17:35 Urine Ketones Negative (NEGATIVE) 05/22/18 17:35 Urine Occult Blood 1+ (NEGATIVE) 05/22/18 17:35 Urine Nitrite Negative (NEGATIVE) 05/22/18 17:35 Urine Bilirubin Negative (NEGATIVE) 05/22/18 17:35 Urine Urobilinogen Normal (NORMAL) 05/22/18 17:35 Ur Leukocyte Esterase Negative (NEGATIVE) 05/22/18 17:35 Urine RBC 0-2 /HPF (NONE SEEN) 05/22/18 17:35 Urine WBC 0-2 /HPF (NONE SEEN) 05/22/18 17:35 Ur Squamous Epith Cells Negative /HPF (NEGATIVE) 05/22/18 17:35 Urine Bacteria Negative /HPF (NEGATIVE) 05/22/18 17:35 Coarse Granular Casts Few /HPF (NEGATIVE) 05/15/18 13:48 Urine Mucus Moderate /HPF (NEGATIVE) 05/15/18 13:48 Ur Culture Indicated? No/not indicated 05/22/18 17:35 - Plan (1) Respiratory failure Status: Acute Plan: SERIAL CE AND EKG ON ADMISSION RESULTS REVIEWED WITH PT, BLOOD AND SPUTUM CULTURE COLLECTED ON ADMISSION NEGATIVE AT THIS TIME. RESP CONSULT, SUPPLEMENTAL O2 SERIAL ABG, BIPAP PRN. CXR Q AM. STRICT I & OS, CARDIAC MONITORING. IV ATBX, BLOOD SUGAR CONTROL (2) COPD (chronic obstructive pulmonary disease) Status: Chronic (3) CAD (coronary artery disease) Status: Acute (4) Hypertension Status: Chronic (5) Hyperlipidemia Status: Chronic (6) GERD (gastroesophageal reflux disease) Status: Chronic (7) COPD exacerbation Status: Acute (8) Weakness Status: Acute Plan: GENERALIZED WEAKNESS, PHYSICAL THERAPY, REHAB CONSULT
[2018-05-23] MEDS: SNACK - Diabetic Appropriate PO SCH (20:19)
[2018-05-23] MEDS: LIPITOR TAB 40 MG PO SCH (20:41)
[2018-05-23] MEDS: NORCO 10/325 TAB PO PRN (20:43)
[2018-05-23] MEDS: AMBIEN PO PRN (20:43)
[2018-05-23] MEDS ORDERED: COLACE CAP 100 MG PO SCH (21:00)
[2018-05-24] MEDS: DUONEB 0.5 MG/3 MG NEB SCH ×4 (00:50→12:15)
[2018-05-24] MEDS: NEURONTIN CAP 300 MG PO SCH ×2 (05:28→15:44)
[2018-05-24 05:38] LABS: BASOPHILS % (AUTO) 0.2 % (0.2-1.0); EOSINOPHILS # (AUTO) 0.2 x10^3/uL (0.0-0.2); EOSINOPHILS % (AUTO) 1.9 % (0.9-2.9); HEMOGLOBIN 11.2 g/dL (13.5-18.0); LYMPHOCYTES # (AUTO) 2.8 X10^3/uL (1.3-2.9); MEAN CORPUSCULAR HEMOGLOBIN 30.4 pg (27.0-34.0); MEAN CORPUSCULAR HGB CONC 33.9 g/dL (33.0-35.0); MEAN CORPUSCULAR VOLUME 89.8 fL (80.0-100.0); MONOCYTES # (AUTO) 0.7 x10^3/uL (0.3-0.8); MONOCYTES % (AUTO) 6.9 % (0.0-13.0); NEUTROPHILS # (AUTO) 6.6 x10^3/uL (2.2-4.8); PLATELET COUNT 302 X10^3/uL (150.0-450.0); RED BLOOD COUNT 3.67 X10^6/uL (4.7-6.0); RED CELL DISTRIBUTION WIDTH 13.8 % (11.6-16.5); WHITE BLOOD COUNT 10.3 X10^3/uL (3.6-10.0)
[2018-05-24 05:47] LABS: ALANINE AMINOTRANSFERASE 26 Units/L (12-78); ALKALINE PHOSPHATASE 72 Units/L (46-116); ASPARTATE AMINO TRANSFERASE 14 Units/L (15-37); BLOOD UREA NITROGEN 28 mg/dL (7-18); CALCIUM 8.6 mg/dL (8.5-10.1); CARBON DIOXIDE 39.6 mmol/L (21-32); CHLORIDE 98 mmol/L (98-107); COR CA(FOR HYPOALB) 10.2 mg/dL (8.5-10.1); COR NA(FOR HYPERGLY) 143 mmol/L (136-145); CREATININE 1.04 mg/dL (0.70-1.30); SODIUM 140 mmol/L (136-145); TOTAL PROTEIN 6.3 g/dL (6.4-8.2); eGFR NON BLACK RACES > 60 (>60)
[2018-05-24] MEDS: BROVANA IN SCH (08:09)
[2018-05-24] MEDS: PULMICORT NEB TX 0.5 MG NEB SCH (08:09)
[2018-05-24] MEDS: MILK OF MAGNESIA PO SCH (08:15)
[2018-05-24] MEDS: ROCEPHIN VIAL 1 GRAM IVP SCH (08:15)
[2018-05-24] MEDS: PriLOSEC PO SCH (08:16)
[2018-05-24] MEDS: PLAVIX PO SCH (08:16)
[2018-05-24] MEDS: COREG TAB 6.25 MG PO SCH (08:17)
[2018-05-24] MEDS: LASIX PO SCH (08:17)
[2018-05-24] MEDS: LEVEMIR SC SCH (08:17)
[2018-05-24] MEDS: ASPIRIN 81 MG CHEWTAB PO SCH (08:18)
[2018-05-24 12:30] VITALS: BP 90/52
== END 2018-05-24 15:40 | DRG 189 ==
LOC: ER 12:52 → ICU 16:54 → MED/SURG 05-23 16:40
PROVIDERS: ADMIT Internal Medicine; ATTEND Internal Medicine
DX: R26.89 Other abnormalities of gait and mobility; I25.10 Atherosclerotic heart disease of native coronary artery without angina pectoris; R53.1 Weakness; E78.2 Mixed hyperlipidemia; I10 Essential (primary) hypertension; R94.31 Abnormal electrocardiogram [ECG] [EKG]; J44.1 Chronic obstructive pulmonary disease with (acute) exacerbation; K21.9 Gastro-esophageal reflux disease without esophagitis; J96.22 Acute and chronic respiratory failure with hypercapnia
CPT/HCPCS: 36415; 36600; 51702; 71010; 71045; 80053; 81001; 82550; 82553; 82803; 82947; 84484; 85025; 87040; 87070; 87086; 87205; 93005; 94640; 94660; 96365; 96374; 96375; 97110; 97116; 97162; 97166; 97535; 99231; 99284; 99285; A4618; A7030; J0696; J1815; J1940; J2920; J3490; J7620; J7626

== ENCOUNTER 2020-11-24 10:43 | Inpatient (IN) ==
[2020-11-24 10:51] LABS: ABG BASE EXCESS 7.8 mmol/L (-2.0-2.0)
[2020-11-24 10:53] LABS: ABG HCO3 33.7 mmol/L (22-26)
--- NOTE | 2020-11-24 11:02 | DR.SOBA ---
HPI Time Seen Time Seen by Provider: 11/24/20 10:53 Primary Care Physician Primary Care Physician: Burnett Complaints Chief Complaint Doctors Comments: arrived via EMS w SOB. Sats in 60s when EMS arrived. likely COVID. hx of COPD. Chief Complaint:: Pt arrives via EMS with shortness of breath and low O2 sat. Pt wears O2 at all times but took it off this am to use the restroom and did not put O2 back on. Family reports to EMS that pt was exposed to covid 1.5 weeks ago. Family also states pt has had decreased appetite for one week. RT and Dr. Alamo at bedside. COVID-19 Coronavirus risk:travel/contact w/high risk person: Yes Has patient experienced Coronavirus symptoms: Yes Coronavirus symptoms experienced: Shortness of Breath Reviewed Nurses Notes Reviewed: Yes Source History Provided: Patient and EMS Mode of Arrival Mode of Arrival: EMS Timing Onset of Chief Complaint: 11/24/20 PMH PMH Past Medical History: Yes Past Medical History: Angina, Anxiety, Asthma, COPD, Depression, Diabetes, Dyslipidemia, GERD, Hypertension and AR Past Surgical History: Yes Surgical History: Abdominal Surgery, Angioplasty/Stents and CABG/Valve Surgery Family History History of Family Medical Conditions: Yes Family Medical History: Diabetes Mellitus, Cancer, AR, Coronary Artery Disease, Heart Failure and Hypertension Social History Does patient currently use any type of tobacco product: Yes Have you used tobacco products in the last 12 months: Yes Type of Tobacco Use: Cigarettes Do you use any recreational Drugs:: No Lives With: Family Lives Where: Home Travel Risk Coronavirus risk:travel/contact w/high risk person: Yes Has patient experienced Coronavirus symptoms: Yes Coronavirus symptoms experienced: Shortness of Breath Infectious screening In the last 2 months have you had wt loss of >10#?: NO Have you had fever, night sweats or hemotysis?: No Have you traveled outside the country in the last 6 months?: No Isolation: Droplet ROS Review of Systems Unable to Obtain Due To: Medical urgency PE Vital Signs Vitals: Temperature 97.5 F Pulse Rate 120 Respiratory Rate 29 Blood Pressure [Right Arm] 166/69 Blood Pressure 160/81 O2 Sat by Pulse Oximetry 98 General General Appearance: Alert, Anxious and In Distress Head Head Exam: Normal Inspection Eyes Eye exam: Normal Appearance ENT ENT Exam: Normal Exam and Mucous Membranes Dry Neck Neck Exam: Normal Inspection Respiratory Respiratory Exam: Accessory Muscle Use, Respiratory Distress and Other (tachypnesic w rales/ronchi bilat and retractions noted); negative Normal Lung Sounds Bilat Cardiovascular Cardiovascular Exam: Tachycardia Abdominal Exam Abdominal Exam: Normal Inspection, Normal Bowel Sounds and Soft Extremities Extremities Exam: Normal Inspection and Full ROM; negative Tenderness Back Back Exam: Normal Inspection and Full ROM Neurologic Neurological Exam: Alert, Oriented X3 and Reflexes Normal Skin Skin Exam: Warm, Dry and Intact COURSE Treatment Treatment: initally on NC then to NRB then required Bipap. ROR Labs Reviewed Laboratory Results Reviewed?: Yes Result Diagrams: 11/24/20 11:00 11/24/20 11:00 Laboratory: WBC 17.2 X10^3/uL (3.6-10.0) H 11/24/20 11:00 RBC 5.17 X10^6/uL (4.7-6.0) 11/24/20 11:00 Hgb 16.6 g/dL (13.5-18.0) 11/24/20 11:00 Hct 47.9 % (42.0-54.0) 11/24/20 11:00 MCV 92.7 fL (80.0-100.0) 11/24/20 11:00 MCH 32.0 pg (27.0-34.0) 11/24/20 11:00 MCHC 34.6 g/dL (33.0-35.0) 11/24/20 11:00 RDW 13.9 % (11.6-16.5) 11/24/20 11:00 Plt Count 153 X10^3/uL (150.0-450.0) 11/24/20 11:00 Plt Count Comment Adequate (ADEQUATE) 11/24/20 11:00 MPV 9.1 fL (7.4-11.0) 11/24/20 11:00 Neut % (Auto) 92.0 % (42.0-75.0) H 11/24/20 11:00 Lymph % (Auto) 3.5 % (21.0-51.0) L 11/24/20 11:00 [place] % (Auto) 4.4 % (0.0-13.0) 11/24/20 11:00 Eos % (Auto) 0.0 % (0.9-2.9) L 11/24/20 11:00 Baso % (Auto) 0.1 % (0.2-1.0) L 11/24/20 11:00 Neut # (Auto) 15.8 x10^3/uL (2.2-4.8) H 11/24/20 11:00 Lymph # (Auto) 0.6 X10^3/uL (1.3-2.9) L 11/24/20 11:00 [place] # (Auto) 0.8 x10^3/uL (0.3-0.8) 11/24/20 11:00 Eos # (Auto) 0.0 x10^3/uL (0.0-0.2) 11/24/20 11:00 Baso # (Auto) 0.0 X10^3/uL (0.0-0.1) 11/24/20 11:00 Absolute Nucleated RBC 0.0 /100WBC 11/24/20 11:00 Total Counted 100 11/24/20 11:00 Neutrophils % (Manual) 89 % (39-76) H 11/24/20 11:00 Band Neutrophils % 5 % (0-10) 11/24/20 11:00 Lymphocytes % (Manual) 10 % (13-43) L 11/24/20 11:00 Monocytes % (Manual) 6 % (4-9) 11/24/20 11:00 Plt Morphology Comment Normal (NORMAL) 11/24/20 11:00 RBC Morphology Normal (NORMAL) 11/24/20 11:00 D-Dimer 1.39 ug/ml (0.0-0.57) H* 11/24/20 11:00 Sample Site Rbra 11/24/20 10:43 ABG pH 7.420 (7.35-7.45) 11/24/20 10:43 ABG pCO2 52.0 mmHg (35.0-45.0) H* 11/24/20 10:43 ABG pO2 55.0 mmHg (80.0-100.0) L 11/24/20 10:43 ABG HCO3 33.7 mmol/L (22-26) H* 11/24/20 10:43 ABG O2 Saturation 89.0 % (90-100) L 11/24/20 10:43 ABG Base Excess 7.8 mmol/L (-2.0-2.0) H 11/24/20 10:43 Gregory Test N/a 11/24/20 10:43 A-a Gradient 194.0 mmHg 11/24/20 10:43 FiO2 44.0 11/24/20 10:43 Blood Gas Comments Pt lee well elj sd 11/24/20 10:43 Sodium 139 mmol/L (136-145) 11/24/20 11:00 Corrected Sodium 141 mmol/L (136-145) 11/24/20 11:00 Potassium 4.4 mmol/L (3.5-5.1) 11/24/20 11:00 Chloride 98 mmol/L (98-107) 11/24/20 11:00 Carbon Dioxide 34.5 mmol/L (21-32) H 11/24/20 11:00 BUN 46 mg/dL (7-18) H 11/24/20 11:00 Creatinine 1.58 mg/dL (0.70-1.30) H 11/24/20 11:00 Est GFR (MDRD) Af Amer 57 (>60) L 11/24/20 11:00 Est GFR (MDRD) Non-Af 47 (>60) L 11/24/20 11:00 Glucose 196 mg/dL (65-99) H 11/24/20 11:00 Calcium 9.2 mg/dL (8.5-10.1) 11/24/20 11:00 Corrected Calcium 10.4 mg/dL (8.5-10.1) H 11/24/20 11:00 Ferritin 391 ng/mL (26-388) H 11/24/20 11:00 Total Bilirubin 0.80 mg/dL (0.2-1.0) 11/24/20 11:00 AST 25 Units/L (15-37) 11/24/20 11:00 ALT 15 Units/L (12-78) 11/24/20 11:00 Alkaline Phosphatase 65 Units/L (46-116) 11/24/20 11:00 Creatine Kinase 116 Units/L (39-308) 11/24/20 11:00 CK-MB (CK-2) 1.3 ng/mL (0-4.0) 11/24/20 11:00 CK/CKMB % Calc 1.1 % (<4) 11/24/20 11:00 Troponin I < 0.02 ng/mL (0-1.5) 11/24/20 11:00 C-Reactive Protein 206.70 mg/L (0-3.0) H 11/24/20 11:00 B-Natriuretic Peptide 184 pg/mL (0-79) H 11/24/20 11:00 Total Protein 7.5 g/dL (6.4-8.2) 11/24/20 11:00 Albumin 2.5 g/dL (3.4-5.0) L 11/24/20 11:00 Globulin 5.0 g/dL (2.5-4.5) H 11/24/20 11:00 Albumin/Globulin Ratio 0.5 Ratio (1.1-2.1) L 11/24/20 11:00 SARS CoV-2 RNA Rapid JASON Positive (NEGATIVE) A 11/24/20 12:42 XRAY X-ray Results: pos infiltrate Opioid Opioid Risk Tool Age (Kiel box if 16-45): No History of Preadolescent Sexual Abuse: No Total: 0 Total Score Risk Category: Low Risk Copyright: Saleem MATOS predicting aberrant behaviors Diagnosis Discharge Problem: COPD (chronic obstructive pulmonary disease), COVID ADDITIONAL NOTES Additional Notes Additional Notes: accepted dr burnett
[2020-11-24 11:30] LABS: BASOPHILS % (AUTO) 0.1 % (0.2-1.0); HEMATOCRIT 47.9 % (42.0-54.0); HEMOGLOBIN 16.6 g/dL (13.5-18.0); LYMPHOCYTES # (AUTO) 0.6 X10^3/uL (1.3-2.9); LYMPHOCYTES % (AUTO) 3.5 % (21.0-51.0); MEAN CORPUSCULAR HGB CONC 34.6 g/dL (33.0-35.0); MEAN CORPUSCULAR VOLUME 92.7 fL (80.0-100.0); MEAN PLATELET VOLUME 9.1 fL (7.4-11.0); MONOCYTES # (AUTO) 0.8 x10^3/uL (0.3-0.8); MONOCYTES % (AUTO) 4.4 % (0.0-13.0); NEUTROPHILS # (AUTO) 15.8 x10^3/uL (2.2-4.8); PLATELET COUNT 153 X10^3/uL (150.0-450.0); RED BLOOD COUNT 5.17 X10^6/uL (4.7-6.0); RED CELL DISTRIBUTION WIDTH 13.9 % (11.6-16.5); WHITE BLOOD COUNT 17.2 X10^3/uL (3.6-10.0)
[2020-11-24 11:43] LABS: ALANINE AMINOTRANSFERASE 15 Units/L (12-78); ALKALINE PHOSPHATASE 65 Units/L (46-116); ASPARTATE AMINO TRANSFERASE 25 Units/L (15-37); BLOOD UREA NITROGEN 46 mg/dL (7-18); CALCIUM 9.2 mg/dL (8.5-10.1); CARBON DIOXIDE 34.5 mmol/L (21-32); CHLORIDE 98 mmol/L (98-107); CKMB % 1.1 % (<4); COR NA(FOR HYPERGLY) 141 mmol/L (136-145); CREATINE KINASE 116 Units/L (39-308); CREATINE KINASE MB 1.3 ng/mL (0-4.0); CREATININE 1.58 mg/dL (0.70-1.30); SODIUM 139 mmol/L (136-145); TOTAL PROTEIN 7.5 g/dL (6.4-8.2); TROPONIN I < 0.02 ng/mL (0-1.5); eGFR NON BLACK RACES 47 (>60)
--- NOTE | 2020-11-24 11:44 | RAD ---
HISTORYPt arrives via EMS with shortness of breath and low O2 sat. Pt wears O2 at all times but took it off this am to use the restroom and did not put O2 back on...STUDYCHEST, 1 VIEWCOMPARISONNoneFINDINGSFocal areas of opacity in the right lung could be pneumonia. Left lung clear. No pleural effusion or pneumothorax.Heart size is normal.Bones are unremarkable.Median sternotomy wires are present. EKG leads are noted.IMPRESSION1. Right lung pneumoniaElectronically signed by: Jose Alfredo Huang (Nov 24, 2020 11:42:40)
[2020-11-24 11:56] LABS: COR CA(FOR HYPOALB) 10.4 mg/dL (8.5-10.1)
[2020-11-24 11:57] LABS: ALBUMIN 2.5 g/dL (3.4-5.0)
[2020-11-24 12:24] LABS: BAND NEUTROPHILS % 5 % (0-10); PLATELET MORPHOLOGY COMMENT NORMAL (NORMAL)
[2020-11-24] MEDS ORDERED: DECADRON INJ IVP ONE (12:25)
[2020-11-24] MEDS ORDERED: HEPARIN SODIUM IN D5W 25,000 UNITS/500 ML BAG IV PRN (12:26)
[2020-11-24] MEDS ORDERED: ROCEPHIN 1 GRAM IV PREMIX 1 G/50 ML IV.SOLN. IV ONE ×2 (12:27→12:58)
[2020-11-24] MEDS ORDERED: DECADRON INJ ONE (12:57)
[2020-11-24] MEDS ORDERED: ATIVAN INJ 2 MG VIAL ONE ×2 (14:04→22:51)
[2020-11-24] MEDS ORDERED: ATIVAN INJ 2 MG VIAL IVP ONE (14:08)
[2020-11-24] MEDS: NS 1000 ML 1,000 ML IV SCH (19:01)
[2020-11-24 19:07] LABS: BILIRUBIN,URINE 1+ (NEGATIVE); BLOOD/HEMOGLOBIN,URINE 4+ (NEGATIVE); GLUCOSE, URINE NEGATIVE (NEGATIVE); KETONES,URINE NEGATIVE (NEGATIVE); LEUKOCYTE ESTERASE ,URINE 1+ (NEGATIVE); NITRITES,URINE NEGATIVE (NEGATIVE); PROTEIN,URINE 4+ (NEGATIVE); UROBILINOGEN,URINE NORMAL (NORMAL)
[2020-11-24] MEDS ORDERED: PULMICORT NEB TX 0.5 MG NEB ONE (19:07)
[2020-11-24] MEDS ORDERED: BROVANA ONE (19:07)
[2020-11-24 19:45] LABS: APPEARANCE,URINE HAZY (CLEAR); COLOR,URINE DARK YELLOW (YELLOW)
[2020-11-24 19:46] LABS: BACTERIA,URINE TRACE /HPF (NEGATIVE); RBC,URINE 0-2 /HPF (0-3); SQUAMOUS EPITHELIAL CELL,UR FEW /HPF (NEGATIVE)
[2020-11-24] MEDS: PULMICORT NEB TX 0.5 MG NEB SCH (20:00)
[2020-11-24] MEDS: BROVANA IN SCH (20:00)
[2020-11-24] MEDS ORDERED: REMDESIVIR 200 MG in NS 250 ML IV 250 ML IV ONE (20:35)
[2020-11-24] MEDS ORDERED: NORCO 5/325 MG TAB PO PRN (20:36)
[2020-11-24] MEDS ORDERED: REMDESIVIR IV ONE (20:52)
[2020-11-24] MEDS ORDERED: NS 250 ML IV 250 ML IV ONE (20:53)
[2020-11-24] MEDS ORDERED: HumuLIN R ONE (20:53)
[2020-11-24] MEDS: SOLU-Medrol 40 MG VIAL IVP SCH (22:07)
[2020-11-24] MEDS: HumuLIN R SC PRN (22:08)
[2020-11-24] MEDS: ATIVAN INJ 2 MG VIAL IVP PRN (22:54)
[2020-11-24] MEDS: ZOSYN VIAL 3.375 GRAMS 3.375 G in NS 100 ML IV + SPIKE MINIBAG* 100 ML IV SCH (22:58)
[2020-11-24] MEDS: ZITHROMAX INJ 500 MG VIAL 500 MG in NS 250 ML IV 250 ML IV SCH (23:18)
[2020-11-24] MEDS ORDERED: HEPARIN SODIUM INJ 5000 UNITS IVP PRN (23:58)
[2020-11-25] MEDS ORDERED: HEPARIN SODIUM INJ 5000 UNITS ONE (00:28)
[2020-11-25] MEDS: HEPARIN SODIUM IN D5W 25,000 UNITS/500 ML BAG IV PRN (00:36)
[2020-11-25] MEDS: ZOSYN VIAL 3.375 GRAMS 3.375 G in NS 100 ML IV + SPIKE MINIBAG* 100 ML IV SCH ×4 (01:18→22:53)
[2020-11-25] MEDS: SOLU-Medrol 40 MG VIAL IVP SCH ×3 (05:17→22:11)
[2020-11-25 07:06] LABS: BASOPHILS % (AUTO) 0.1 % (0.2-1.0); HEMATOCRIT 43.5 % (42.0-54.0); HEMOGLOBIN 14.8 g/dL (13.5-18.0); LYMPHOCYTES # (AUTO) 0.3 X10^3/uL (1.3-2.9); LYMPHOCYTES % (AUTO) 2.5 % (21.0-51.0); MEAN CORPUSCULAR HEMOGLOBIN 31.8 pg (27.0-34.0); MEAN CORPUSCULAR VOLUME 93.4 fL (80.0-100.0); MEAN PLATELET VOLUME 8.8 fL (7.4-11.0); MONOCYTES # (AUTO) 0.5 x10^3/uL (0.3-0.8); MONOCYTES % (AUTO) 3.8 % (0.0-13.0); NEUTROPHILS # (AUTO) 11.6 x10^3/uL (2.2-4.8); NEUTROPHILS % (AUTO) 93.6 % (42.0-75.0); PLATELET COUNT 153 X10^3/uL (150.0-450.0); RED BLOOD COUNT 4.66 X10^6/uL (4.7-6.0); RED CELL DISTRIBUTION WIDTH 13.6 % (11.6-16.5); WHITE BLOOD COUNT 12.4 X10^3/uL (3.6-10.0)
[2020-11-25 07:31] LABS: ALANINE AMINOTRANSFERASE 16 Units/L (12-78); ALBUMIN 1.9 g/dL (3.4-5.0); ALKALINE PHOSPHATASE 60 Units/L (46-116); ASPARTATE AMINO TRANSFERASE 29 Units/L (15-37); BLOOD UREA NITROGEN 60 mg/dL (7-18); CALCIUM 8.6 mg/dL (8.5-10.1); CHLORIDE 102 mmol/L (98-107); COR CA(FOR HYPOALB) 10.3 mg/dL (8.5-10.1); COR NA(FOR HYPERGLY) 144 mmol/L (136-145); CREATININE 1.46 mg/dL (0.70-1.30); SODIUM 141 mmol/L (136-145); eGFR NON BLACK RACES 51 (>60)
--- NOTE | 2020-11-25 08:02 | RAD ---
HISTORYCOVID PNEUMONIASTUDYCHEST, 1 [id number]/30/2021FINDINGSFocal area of opacity in the right lung is compatible with pneumonia. The finding may have progressed slightly since yesterday.No pleural effusion or pneumothorax.Heart size is normal.Bones are unremarkable.Median sternotomy wires are present. EKG leads are noted.IMPRESSION1. Progressed pneumoniaElectronically signed by: Jose Alfredo Huang (Nov 25, 2020 08:00:46)
[2020-11-25 08:04] LABS: BAND NEUTROPHILS % 6 % (0-10)
[2020-11-25 08:05] LABS: METAMYELOCYTES % 2; MYELOCYTES % 1; PLATELET MORPHOLOGY COMMENT NORMAL (NORMAL)
[2020-11-25] MEDS: BROVANA IN SCH ×2 (09:30→22:24)
[2020-11-25] MEDS: PULMICORT NEB TX 0.5 MG NEB SCH ×2 (09:30→22:24)
[2020-11-25] MEDS: NS 1000 ML 1,000 ML IV SCH ×2 (10:54→18:53)
[2020-11-25 12:13] LABS: CREATINE KINASE 55 Units/L (39-308); CREATINE KINASE MB 1.1 ng/mL (0-4.0); TROPONIN I < 0.02 ng/mL (0-1.5)
[2020-11-25] MEDS: HumuLIN R SC PRN ×3 (12:29→22:10)
[2020-11-25] MEDS ORDERED: LOPRESSOR INJ 5 MG AMP IVP ONE (13:34)
[2020-11-25] MEDS: REMDESIVIR 100 MG in NS 100 ML IV + SPIKE MINIBAG* 120 ML IV SCH (14:11)
--- NOTE | 2020-11-25 18:05 | DR.H&P ---
H&P - History & Physical for Day of: H&P Date: 11/24/20 - Chief Complaint Chief Complaint: SOB, CCC, LETHARGIC - History of Present Illness History of Present Illness: PT IS 65 WM ER ADMISSION AFTER Pt arrives via EMS with shortness of breath and low O2 sat. Pt wears O2 at all times but took it off this am to use the restroom and did not put O2 back on. Family reports to EMS that pt was exposed to covid 1.5 weeks ago. Family also states pt has had decreased appetite for one week. PT HAS PMH OF COPD, CHF, CAD, HTN, DM, OA. PT COVID POSITIVE IN ER. PT ADMITTED FOR ACUTE ILLNESS - Past Medical History Past Medical History: Angina, MS, Hypertension, Dyslipidemia, Diabetes, Depression, Anxiety, COPD, Asthma, GERD - Past Surgical History Surgical History: Angioplasty/Stents, CABG/Valve Surgery, Other - Family History Family Medical History: Diabetes Mellitus, Cancer, MS, Coronary Artery Disease, Heart Failure, Hypertension - Social History Does patient currently use any type of tobacco product: Yes Have you used tobacco products in the last 12 months: Yes Type of Tobacco Use: Cigarettes How many years tobacco product used: 47 Does any household member use tobacco: No Alcohol Use: None Drug Use: None - Medications Home Medications: adhesive tape Allergy (Verified 12/25/19 11:53) Fish Containing Products Allergy (Verified 12/25/19 11:53) shrimp Allergy (Verified 12/25/19 11:53) CONTINUE taking the following medications budesonide-formoterol [Symbicort] 2 puff INHALATION BID 11/25/20 [History] buspirone 5 mg PO BID 11/25/20 [History] escitalopram oxalate 10 mg PO DAILY 11/25/20 [History] yzeafalbwcb-[id number] [Trelegy Ellipta] 1 inh INHALATION DAILY 11/25/20 [History] hydrocodone-acetaminophen 1 tab PO TID PRN 11/25/20 [History] insulin detemir U-100 [Levemir U-100 Insulin] 70 units SC BID 11/25/20 [History] ipratropium-albuterol [Combivent Respimat] 1 puff INHALATION QID 11/25/20 [History] lisinopril 5 mg PO DAILY 11/25/20 [History] - Review of Systems Constitutional: Chills, Weakness, Malaise Eyes: No Symptoms Reported ENT: Nose Discharge Respiratory: Cough, Shortness of Breath, SOB with Excertion, Wheezing Cardiovascular: Chest Pain Gastrointestinal: Nausea Genitourinary: No Symptoms Reported Musculoskeletal: Back Pain Skin: No Symptoms Reported Neurological: Weakness - Physical Exam Vital Signs: Temperature 97.9 F Pulse Rate [Left Brachial] 95 Pulse Rate 103 Respiratory Rate 18 Blood Pressure [Left Arm] 109/68 Blood Pressure [Right Arm] 124/75 Blood Pressure 133/97 O2 Sat by Pulse Oximetry 99 Oriented: Normal Eyes: Normal Ear: Normal Nose: Normal Throat: Normal Respiratory: RML Diminished, RLL Diminished, LML Diminished, LLL Diminished Cardiovascular: Normal : Normal Auscultation: Bowel Sounds: Normal Palpation: Normal Tenderness: Normal Skin: Decreased Turgur Musculoskeletal: Back:Thoracic, Back:Lumbar Psychiatric: Anxiety Mood Description: Anxious Affect: Anxious Speech Pattern: Delayed - Assessment/Plan (1) COVID Status: Acute Plan: ADMIT, COVID ISOLATION. IV ATBX, IV HYDRATION. CARDIAC MONITORING, HEPARIN. REMDESIVIR, SOLU MEDROL. VERIFY HOME MEDICATION, SUPPLEMENTAL O2, BP CONTROL, BS CONTROL (2) COPD (chronic obstructive pulmonary disease) Status: Chronic (3) Diabetes mellitus Status: Chronic (4) Hypertension Status: Chronic (5) GERD (gastroesophageal reflux disease) Status: Chronic (6) CAD (coronary artery disease) Status: Chronic - Allergies Allergies/Adverse Reactions: Allergies Allergy/AdvReac Type Severity Reaction Status Date / Time adhesive tape Allergy Verified 12/25/19 11:53 Fish Containing Products Allergy Verified 12/25/19 11:53 shrimp Allergy Verified 12/25/19 11:53
[2020-11-25 19:07] LABS: CKMB % 2.3 % (<4); CREATINE KINASE MB 1.1 ng/mL (0-4.0); TROPONIN I 0.03 ng/mL (0-1.5)
[2020-11-25] MEDS: ZITHROMAX INJ 500 MG VIAL 500 MG in NS 250 ML IV 250 ML IV SCH (20:54)
[2020-11-25] MEDS ORDERED: COMBIVENT RESPIMAT IN SCH (21:00)
[2020-11-25] MEDS: SNACK - Diabetic Appropriate PO SCH (23:04)
[2020-11-25] MEDS: LEVEMIR SC SCH (23:04)
[2020-11-26 00:11] LABS: CKMB % 2.4 % (<4); CREATINE KINASE 42 Units/L (39-308); CREATINE KINASE MB < 1.0 ng/mL (0-4.0); TROPONIN I 0.04 ng/mL (0-1.5)
[2020-11-26] MEDS: HEPARIN SODIUM IN D5W 25,000 UNITS/500 ML BAG IV PRN (03:47)
[2020-11-26] MEDS: ZOSYN VIAL 3.375 GRAMS 3.375 G in NS 100 ML IV + SPIKE MINIBAG* 100 ML IV SCH ×3 (05:05→21:00)
[2020-11-26] MEDS: SOLU-Medrol 40 MG VIAL IVP SCH ×3 (05:05→21:00)
[2020-11-26] MEDS: HumuLIN R SC PRN (05:44)
[2020-11-26 05:54] LABS: ABG BASE EXCESS 7.1 mmol/L (-2.0-2.0)
[2020-11-26 05:55] LABS: ABG HCO3 35.7 mmol/L (22-26)
[2020-11-26 05:56] LABS: ABG ALLEN TEST POS TOLS WELL. SK
[2020-11-26 07:09] LABS: BASOPHILS % (AUTO) 0.1 % (0.2-1.0); HEMATOCRIT 44.1 % (42.0-54.0); HEMOGLOBIN 14.6 g/dL (13.5-18.0); LYMPHOCYTES # (AUTO) 0.3 X10^3/uL (1.3-2.9); LYMPHOCYTES % (AUTO) 2.9 % (21.0-51.0); MEAN CORPUSCULAR HEMOGLOBIN 31.4 pg (27.0-34.0); MEAN CORPUSCULAR HGB CONC 33.1 g/dL (33.0-35.0); MEAN CORPUSCULAR VOLUME 94.9 fL (80.0-100.0); MEAN PLATELET VOLUME 8.6 fL (7.4-11.0); MONOCYTES # (AUTO) 0.6 x10^3/uL (0.3-0.8); MONOCYTES % (AUTO) 5.1 % (0.0-13.0); NEUTROPHILS % (AUTO) 91.9 % (42.0-75.0); PLATELET COUNT 160 X10^3/uL (150.0-450.0); RED BLOOD COUNT 4.65 X10^6/uL (4.7-6.0); RED CELL DISTRIBUTION WIDTH 14.1 % (11.6-16.5)
--- NOTE | 2020-11-26 08:00 | RAD ---
HISTORYCOVID-19 pneumoniaSTUDYPortable AP chestCOMPARISONAugust 2020FINDINGSConsidering technical differences there is no change in appearance of heart or lungs. Extensive airspace involvement is similar in right lower and midlung. The left lung remains clear. Heart size is normal. No pneumothorax is seen.IMPRESSIONStable appearance of pneumonia. No additional abnormality identified.Electronically signed by: TERRY SIFUENTES (Nov 26, 2020 07:59:00)
[2020-11-26 08:02] LABS: PLATELET MORPHOLOGY COMMENT NORMAL (NORMAL)
[2020-11-26] MEDS ORDERED: LEXAPRO ONE (08:27)
[2020-11-26] MEDS: LEXAPRO PO SCH (09:29)
[2020-11-26] MEDS: LOPRESSOR TAB 25 MG PO SCH ×2 (09:30→21:00)
[2020-11-26] MEDS: PLAVIX PO SCH (09:31)
[2020-11-26] MEDS: PULMICORT NEB TX 0.5 MG NEB SCH ×2 (09:35→19:57)
[2020-11-26] MEDS: BROVANA IN SCH ×2 (09:35→19:57)
[2020-11-26] MEDS: LEVEMIR SC SCH (09:36)
[2020-11-26] MEDS: REMDESIVIR 100 MG in NS 100 ML IV + SPIKE MINIBAG* 120 ML IV SCH (09:37)
[2020-11-26] MEDS: DUONEB 0.5 MG/3 MG (3 mL) NEB SCH ×3 (12:09→19:57)
[2020-11-26] MEDS: NS 1000 ML 1,000 ML IV SCH (16:46)
[2020-11-26] MEDS: SNACK - Diabetic Appropriate PO SCH (19:55)
[2020-11-26] MEDS: ZITHROMAX INJ 500 MG VIAL 500 MG in NS 250 ML IV 250 ML IV SCH (21:00)
[2020-11-27] MEDS: ATIVAN INJ 2 MG VIAL IVP PRN ×2 (00:57→11:05)
[2020-11-27] MEDS: NS 1000 ML 1,000 ML IV SCH ×2 (03:09→18:36)
[2020-11-27] MEDS: ZOSYN VIAL 3.375 GRAMS 3.375 G in NS 100 ML IV + SPIKE MINIBAG* 100 ML IV SCH ×3 (06:00→22:10)
[2020-11-27] MEDS: SOLU-Medrol 40 MG VIAL IVP SCH ×3 (06:04→22:00)
[2020-11-27 06:43] LABS: ABG BASE EXCESS 5.8 mmol/L (-2.0-2.0)
[2020-11-27 06:46] LABS: ABG HCO3 33.1 mmol/L (22-26)
[2020-11-27 06:47] LABS: ABG ALLEN TEST POS
[2020-11-27] MEDS: HumuLIN R SC PRN ×3 (07:07→20:42)
[2020-11-27 07:14] LABS: BASOPHILS % (AUTO) 0.1 % (0.2-1.0); HEMATOCRIT 45.6 % (42.0-54.0); HEMOGLOBIN 15.3 g/dL (13.5-18.0); LYMPHOCYTES # (AUTO) 0.4 X10^3/uL (1.3-2.9); MEAN CORPUSCULAR HEMOGLOBIN 31.7 pg (27.0-34.0); MEAN CORPUSCULAR HGB CONC 33.4 g/dL (33.0-35.0); MEAN CORPUSCULAR VOLUME 94.9 fL (80.0-100.0); MEAN PLATELET VOLUME 8.8 fL (7.4-11.0); MONOCYTES # (AUTO) 0.9 x10^3/uL (0.3-0.8); MONOCYTES % (AUTO) 6.4 % (0.0-13.0); NEUTROPHILS # (AUTO) 12.1 x10^3/uL (2.2-4.8); NEUTROPHILS % (AUTO) 90.5 % (42.0-75.0); PLATELET COUNT 140 X10^3/uL (150.0-450.0); RED BLOOD COUNT 4.81 X10^6/uL (4.7-6.0); RED CELL DISTRIBUTION WIDTH 14.2 % (11.6-16.5); WHITE BLOOD COUNT 13.4 X10^3/uL (3.6-10.0)
[2020-11-27 07:33] LABS: ALANINE AMINOTRANSFERASE 51 Units/L (12-78); ALBUMIN 1.7 g/dL (3.4-5.0); ALKALINE PHOSPHATASE 53 Units/L (46-116); ASPARTATE AMINO TRANSFERASE 48 Units/L (15-37); BLOOD UREA NITROGEN 66 mg/dL (7-18); CALCIUM 8.5 mg/dL (8.5-10.1); CARBON DIOXIDE 31.1 mmol/L (21-32); CHLORIDE 106 mmol/L (98-107); COR CA(FOR HYPOALB) 10.3 mg/dL (8.5-10.1); COR NA(FOR HYPERGLY) 150 mmol/L (136-145); CREATININE 1.23 mg/dL (0.70-1.30); SODIUM 146 mmol/L (136-145); TOTAL PROTEIN 6.6 g/dL (6.4-8.2); eGFR NON BLACK RACES > 60 (>60)
[2020-11-27 07:41] LABS: PLATELET MORPHOLOGY COMMENT NORMAL (NORMAL)
[2020-11-27] MEDS ORDERED: POTASSIUM CHL 40 MEQ/NS 0.45% 500 ML IV PRN ×2 (08:02→08:09)
[2020-11-27] MEDS ORDERED: K-RIDER 10 MEQ/NS 100 ML 10 MEQ/100 ML BAG IV PRN ×2 (08:02→08:09)
[2020-11-27] MEDS ORDERED: K-DUR TAB 20 MEQ PO PRN ×2 (08:02→08:09)
[2020-11-27] MEDS ORDERED: POTASSIUM CHL 60 MEQ/NS 0.45% 500 ML IV PRN ×2 (08:02→08:09)
[2020-11-27] MEDS ORDERED: POTASSIUM CHLORIDE LIQ 20 MEQ UDC PO PRN ×2 (08:02→08:09)
[2020-11-27] MEDS ORDERED: MICRO K EXTEN CAP 10 MEQ PO PRN ×2 (08:02→08:09)
[2020-11-27] MEDS ORDERED: MAGNESIUM SULFATE 1 GRAM/100 mL PREMIX 1 GM/100 ML BAG IV PRN (08:02)
[2020-11-27] MEDS ORDERED: KLOR-CON PO PRN (08:09)
--- NOTE | 2020-11-27 08:13 | RAD ---
HISTORYCOVID PNEUMONIASTUDYCHEST, 1 [id number]/01/2021FINDINGSFocal abnormal opacity in the right lung is present. This appears more opaque than previously and may represent a progressed pneumonia or atelectasis.Left lung clear.No pleural effusion or pneumothorax.Heart size is normal.Bones are unremarkable.EKG leads are noted. Median sternotomy wires are present.IMPRESSION1. Progressed right lung pneumonia or atelectasisElectronically signed by: Jose Alfredo Huang (Nov 27, 2020 08:12:09)
[2020-11-27] MEDS ORDERED: LEXAPRO ONE (09:10)
[2020-11-27] MEDS: BROVANA IN SCH ×2 (09:14→21:42)
[2020-11-27] MEDS: DUONEB 0.5 MG/3 MG (3 mL) NEB SCH ×2 (09:14→21:39)
[2020-11-27] MEDS: PULMICORT NEB TX 0.5 MG NEB SCH ×2 (09:15→21:42)
[2020-11-27] MEDS: PLAVIX PO SCH (09:22)
[2020-11-27] MEDS: LEXAPRO PO SCH (09:23)
[2020-11-27] MEDS: KLOR-CON PO PRN (09:23)
[2020-11-27] MEDS: LOPRESSOR TAB 25 MG PO SCH ×2 (09:23→21:12)
[2020-11-27] MEDS: REMDESIVIR 100 MG in NS 100 ML IV + SPIKE MINIBAG* 120 ML IV SCH (09:24)
[2020-11-27] MEDS: LEVEMIR SC SCH (09:24)
[2020-11-27] MEDS: HEPARIN SODIUM IN D5W 25,000 UNITS/500 ML BAG IV PRN (09:25)
--- NOTE | 2020-11-27 14:25 | CT ---
HISTORYconfused, covid +Altered mental statusNoncontrast head CT examination.Comparison: None available.Technique:Multiple axial images of the brain were obtained from the skull base to the vertex without administration of IV contrast.Findings: There is moderate sulcal and cisternal prominence as well as atherosclerotic change in the proximal intracranial carotid and vertebral arteries, which is not out of proportion to the patient's stated age. There is diffuse CT density alteration seen in the periventricular white matter of the high and mid-convexity, which is likely in the setting of small vessel disease and not out of proportion to the patient's stated age. There is [mild bilateral ex vacuo] ventricular dilatation without evidence for hydrocephalus or herniation syndrome. No midline shift is evident. No acute intraparenchymal hemorrhage or mass can be identified. If there remains a strong concern for any intra-cranial neoplasm, then follow-up with CT or MR imaging of the brain would be more sensitive to exclude any intra-cranial mass lesion. No extra-axial fluid collections are seen. No alteration in the attenuation of the brain parenchyma can be identified to suggest acute or subacute ischemic change. However, if clinical symptoms are concerning for an acute CVA, then follow-up MRI with DWI sequencing is recommended. The extracranial structures [are unremarkable]. The sinuses and mastoid air cells are relatively clear on this examination as well.IMPRESSION:1. No acute intracranial hemorrhage identified .However, if the patients symptoms are clinically & neurologically concerning for an acute ischemic event, then MR imaging of the brain with DWI sequencing could be considered to exclude an acute CVA (based on this patient? s clinical presentation and the neurological assessment).2. Age-appropriate intra-cranial changes of advancing age.Electronically signed by: LINA COHEN III (Nov 27, 2020 14:23:17)
[2020-11-27] MEDS: HALDOL INJ IVP SCH ×2 (18:35→22:37)
[2020-11-27] MEDS ORDERED: NS 250 ML IV 250 ML IV ONE (20:04)
[2020-11-27] MEDS: MORPHINE SULFATE INJ 2 MG INJ IVP PRN (21:00)
[2020-11-27] MEDS: SNACK - Diabetic Appropriate PO SCH (21:11)
[2020-11-27] MEDS: ZITHROMAX INJ 500 MG VIAL 500 MG in NS 250 ML IV 250 ML IV SCH (21:12)
[2020-11-28] MEDS: MORPHINE SULFATE INJ 2 MG INJ IVP PRN ×4 (03:18→23:46)
[2020-11-28 05:49] LABS: ABG BASE EXCESS 4.6 mmol/L (-2.0-2.0); ABG HCO3 29.8 mmol/L (22-26)
[2020-11-28 05:51] LABS: ABG ALLEN TEST POS
[2020-11-28] MEDS: SOLU-Medrol 40 MG VIAL IVP SCH ×3 (06:17→21:54)
[2020-11-28] MEDS: HALDOL INJ IVP SCH ×4 (06:17→21:53)
[2020-11-28] MEDS: ZOSYN VIAL 3.375 GRAMS 3.375 G in NS 100 ML IV + SPIKE MINIBAG* 100 ML IV SCH ×3 (06:18→21:54)
[2020-11-28] MEDS: HumuLIN R SC PRN ×2 (06:20→14:30)
[2020-11-28 06:48] LABS: BASOPHILS % (AUTO) 0 % (0.2-1.0); HEMATOCRIT 42.2 % (42.0-54.0); HEMOGLOBIN 14.3 g/dL (13.5-18.0); LYMPHOCYTES # (AUTO) 0.3 X10^3/uL (1.3-2.9); MEAN CORPUSCULAR HEMOGLOBIN 31.4 pg (27.0-34.0); MEAN CORPUSCULAR HGB CONC 33.9 g/dL (33.0-35.0); MEAN CORPUSCULAR VOLUME 92.8 fL (80.0-100.0); MEAN PLATELET VOLUME 8.2 fL (7.4-11.0); MONOCYTES # (AUTO) 0.8 x10^3/uL (0.3-0.8); MONOCYTES % (AUTO) 7.2 % (0.0-13.0); NEUTROPHILS % (AUTO) 89.8 % (42.0-75.0); PLATELET COUNT 198 X10^3/uL (150.0-450.0); RED BLOOD COUNT 4.55 X10^6/uL (4.7-6.0); WHITE BLOOD COUNT 11.1 X10^3/uL (3.6-10.0)
[2020-11-28] MEDS: HEPARIN SODIUM IN D5W 25,000 UNITS/500 ML BAG IV PRN (07:59)
[2020-11-28] MEDS ORDERED: LEXAPRO ONE (08:04)
--- NOTE | 2020-11-28 08:18 | RAD ---
HISTORYCOVID-19 pneumoniaSTUDYPortable AP [id number]/02/2021FINDINGSContinued upper normal heart size with essentially clear left lung. Stable appearance of airspace consolidation in the right lower lung without evidence for large pleura l effusion or pneumothorax.IMPRESSIONNo significant change in appearance of the right lower lobe pneu monia.Electronically signed by: TERRY SIFUENTES (Nov 28, 2020 08:16:50)
[2020-11-28] MEDS: LEVEMIR SC SCH (09:00)
[2020-11-28] MEDS ORDERED: LASIX IVP ONE ×2 (09:18→09:21)
[2020-11-28] MEDS: BROVANA IN SCH ×2 (09:30→21:24)
[2020-11-28] MEDS: PULMICORT NEB TX 0.5 MG NEB SCH ×2 (09:30→21:24)
[2020-11-28] MEDS: DUONEB 0.5 MG/3 MG (3 mL) NEB SCH ×4 (09:33→21:24)
[2020-11-28] MEDS: LEXAPRO PO SCH (09:33)
[2020-11-28] MEDS: LOPRESSOR TAB 25 MG PO SCH ×2 (09:34→21:53)
[2020-11-28] MEDS: REMDESIVIR 100 MG in NS 100 ML IV + SPIKE MINIBAG* 120 ML IV SCH (09:42)
[2020-11-28 09:58] LABS: PLATELET MORPHOLOGY COMMENT NORMAL (NORMAL)
[2020-11-28 09:59] LABS: BURR CELLS SLIGHT
[2020-11-28] MEDS ORDERED: HEPARIN SODIUM INJ 5000 UNITS IVP ONE (10:17)
[2020-11-28] MEDS: NS 1000 ML 1,000 ML IV SCH ×2 (11:30→21:53)
[2020-11-28] MEDS ORDERED: LOPRESSOR INJ 5 MG AMP IVP ONE (12:22)
[2020-11-28] MEDS: PLAVIX PO SCH (12:23)
[2020-11-28] MEDS: SNACK - Diabetic Appropriate PO SCH (21:53)
[2020-11-28] MEDS: ZITHROMAX INJ 500 MG VIAL 500 MG in NS 250 ML IV 250 ML IV SCH (21:53)
[2020-11-29 03:18] LABS: BASOPHILS % (AUTO) 0 % (0.2-1.0); HEMATOCRIT 41.9 % (42.0-54.0); HEMOGLOBIN 14.2 g/dL (13.5-18.0); LYMPHOCYTES # (AUTO) 0.3 X10^3/uL (1.3-2.9); LYMPHOCYTES % (AUTO) 3.7 % (21.0-51.0); MEAN CORPUSCULAR HEMOGLOBIN 31.5 pg (27.0-34.0); MEAN CORPUSCULAR HGB CONC 33.9 g/dL (33.0-35.0); MEAN CORPUSCULAR VOLUME 92.9 fL (80.0-100.0); MEAN PLATELET VOLUME 8.6 fL (7.4-11.0); MONOCYTES # (AUTO) 0.5 x10^3/uL (0.3-0.8); MONOCYTES % (AUTO) 6.1 % (0.0-13.0); NEUTROPHILS # (AUTO) 8.1 x10^3/uL (2.2-4.8); NEUTROPHILS % (AUTO) 90.2 % (42.0-75.0); PLATELET COUNT 208 X10^3/uL (150.0-450.0); RED BLOOD COUNT 4.51 X10^6/uL (4.7-6.0); RED CELL DISTRIBUTION WIDTH 14.1 % (11.6-16.5)
[2020-11-29] MEDS ORDERED: VALIUM INJ IVP ONE (03:30)
[2020-11-29 04:13] LABS: PLATELET MORPHOLOGY COMMENT NORMAL (NORMAL)
[2020-11-29] MEDS ORDERED: BENADRYL CAP 50 MG PO SCH ×2 (05:00→08:15)
[2020-11-29] MEDS: ZOSYN VIAL 3.375 GRAMS 3.375 G in NS 100 ML IV + SPIKE MINIBAG* 100 ML IV SCH ×3 (05:07→21:04)
[2020-11-29] MEDS: SOLU-Medrol 40 MG VIAL IVP SCH ×3 (05:07→21:05)
[2020-11-29 05:49] LABS: ALANINE AMINOTRANSFERASE 32 Units/L (12-78); ALBUMIN 1.9 g/dL (3.4-5.0); ALKALINE PHOSPHATASE 50 Units/L (46-116); ASPARTATE AMINO TRANSFERASE 25 Units/L (15-37); BLOOD UREA NITROGEN 42 mg/dL (7-18); CALCIUM 8.2 mg/dL (8.5-10.1); CARBON DIOXIDE 28.2 mmol/L (21-32); CHLORIDE 103 mmol/L (98-107); COR CA(FOR HYPOALB) 9.9 mg/dL (8.5-10.1); COR NA(FOR HYPERGLY) 152 mmol/L (136-145); CREATININE 1.25 mg/dL (0.70-1.30); SODIUM 147 mmol/L (136-145); TOTAL PROTEIN 6.3 g/dL (6.4-8.2); eGFR NON BLACK RACES > 60 (>60)
[2020-11-29] MEDS: HALDOL INJ IVP SCH ×4 (06:13→23:43)
[2020-11-29] MEDS: KLOR-CON PO PRN ×2 (06:17→08:33)
--- NOTE | 2020-11-29 06:40 | CT ---
CTA CHESTCLINICAL INDICATION: ELEVATED D-DIMER, COVID-19PROCEDURE: Non gated axial images of the chest were obtained with intravenous contrast according to pulmonary embolism protocol. MIPS were reconstructed Dose reduction techniques including Automated Exposure Control (AEC) and adjustment of mA and kV were utlized.COMPARISON:NoneFINDINGS:No evidence of a pulmonary embolism to the level of the segmental pulmonary arteries.The heart is normal in size . No pericardial effusion. Shotty, reactive appearing mediastinal lymph nodes.. Bilateral dense lower lobe consolidations more notable on the right. There is also developing consolidation in the dependent portion of the right upper lobe..Airways are patent . No suspicious pulmonary nodules or masses .Limited images of the upper abdomen are unremarkable.No aggressive osseous lesions.IMPRESSION:1. No evidence of pulmonary embolism.2. Multifocal lobar pneumonia.Electronically signed by: GRACE CRUZ (Nov 29, 2020 06:38:29)
[2020-11-29] MEDS: MORPHINE SULFATE INJ 2 MG INJ IVP PRN ×3 (07:10→21:05)
[2020-11-29] MEDS ORDERED: LEXAPRO ONE (08:27)
[2020-11-29] MEDS: REMDESIVIR 100 MG in NS 100 ML IV + SPIKE MINIBAG* 120 ML IV SCH (08:33)
[2020-11-29] MEDS: LEVEMIR SC SCH (08:34)
[2020-11-29] MEDS: LEXAPRO PO SCH (08:34)
[2020-11-29] MEDS: PLAVIX PO SCH (08:34)
[2020-11-29] MEDS: LOPRESSOR TAB 25 MG PO SCH ×2 (08:34→21:04)
[2020-11-29] MEDS: PULMICORT NEB TX 0.5 MG NEB SCH ×2 (09:30→21:47)
[2020-11-29] MEDS: DUONEB 0.5 MG/3 MG (3 mL) NEB SCH ×4 (09:30→21:47)
[2020-11-29] MEDS: BROVANA IN SCH ×2 (09:30→21:47)
[2020-11-29] MEDS: HumuLIN R SC PRN ×3 (12:38→21:07)
[2020-11-29] MEDS: NS 1000 ML 1,000 ML IV SCH (13:44)
--- NOTE | 2020-11-29 17:29 | PCM.PROG ---
Progress Note Progress Note for Day of Date of Exam: 11/29/20 Subjective Subjective: The patient is a 65-year-old white male with COVID-19 pneumonia and hypoxia. This morning patient appears confused and agitated. He is resting in bed comfortably and utilizing 2.5L nasal cannula supplemental oxygen. Labs/imaging: Wbc 9.0, Hgb 14.2, Plt 208, Na 147, K 3.4, Creatinine 1.25, Gl ucose 311, CRP 78, CTA chest was obtained that revealed: 1. No evidence of pulmonary embolism. 2. Multifocal lobar pneumonia. Will continue IV antibiotics, respiratory therapy, supplemental oxygen, corticosteroids, Remdesivir, Haldol prn, aggressive PT, and respiratory therapy. Wean/titrate oxygen as tolerated. Continue monitoring and follow up labs/imaging in the morning. Past Medical Family Social History Past Med/Fam/Surg Hx: No changes since H&P Allergies: Allergies adhesive tape Allergy (Verified 12/25/19 11:53) Fish Containing Products Allergy (Verified 12/25/19 11:53) shrimp Allergy (Verified 12/25/19 11:53) Review of Systems ROS: No change since H&P Vital Signs and I&O's Vital Signs: Temperature 98.9 F Pulse Rate [Left Brachial] 118 Pulse Rate 112 Respiratory Rate 22 Blood Pressure [Left Arm] 172/98 Blood Pressure [Right Arm] 144/83 Blood Pressure 135/85 O2 Sat by Pulse Oximetry 89 Intake and Output: Intake & Output 11/26/20 11/27/20 11/28/20 11/29/20 23:59 23:59 23:59 23:59 Intake Total 1257 / 1257 1690 / 1690 2979 / 2979 1678 / 1678 Output Total 1095 / 1095 1775 / 1775 3150 / 3150 1500 / 1500 Balance 162 / 162 -85 / -85 -171 / -171 178 / 178 Physical Exam Oriented: Normal Eyes: Normal Ear: Normal Nose: Normal Throat: Normal Respiratory: Diminished Cardiovascular: Normal : Normal Auscultation: Bowel Sounds: Normal Tenderness: Normal Skin: Decreased Turgur Musculoskeletal: Back:Thoracic and Back:Lumbar Psychiatric: Anxiety Mood Description: Anxious Affect: Anxious Speech Pattern: Clear Laboratory and Diagnostics Result Diagrams: 11/29/20 03:00 11/29/20 03:00 Labs: 11/25/20 18:10 Blood Blood Culture - Preliminary 11/25/20 18:10 Blood Blood Culture - Preliminary Laboratory WBC 9.0 X10^3/uL (3.6-10.0) 11/29/20 03:00 RBC 4.51 X10^6/uL (4.7-6.0) L 11/29/20 03:00 Hgb 14.2 g/dL (13.5-18.0) 11/29/20 03:00 Hct 41.9 % (42.0-54.0) L 11/29/20 03:00 MCV 92.9 fL (80.0-100.0) 11/29/20 03:00 MCH 31.5 pg (27.0-34.0) 11/29/20 03:00 MCHC 33.9 g/dL (33.0-35.0) 11/29/20 03:00 RDW 14.1 % (11.6-16.5) 11/29/20 03:00 Plt Count 208 X10^3/uL (150.0-450.0) 11/29/20 03:00 Plt Count Comment Adequate (ADEQUATE) 11/29/20 03:00 MPV 8.6 fL (7.4-11.0) 11/29/20 03:00 Neut % (Auto) 90.2 % (42.0-75.0) H 11/29/20 03:00 Lymph % (Auto) 3.7 % (21.0-51.0) L 11/29/20 03:00 [place] % (Auto) 6.1 % (0.0-13.0) 11/29/20 03:00 Eos % (Auto) 0.0 % (0.9-2.9) L 11/29/20 03:00 Baso % (Auto) 0 % (0.2-1.0) L 11/29/20 03:00 Neut # (Auto) 8.1 x10^3/uL (2.2-4.8) H 11/29/20 03:00 Lymph # (Auto) 0.3 X10^3/uL (1.3-2.9) L 11/29/20 03:00 [place] # (Auto) 0.5 x10^3/uL (0.3-0.8) 11/29/20 03:00 Eos # (Auto) 0.0 x10^3/uL (0.0-0.2) 11/29/20 03:00 Baso # (Auto) 0.0 X10^3/uL (0.0-0.1) 11/29/20 03:00 Absolute Nucleated RBC 0.1 /100WBC 11/29/20 03:00 Total Counted 100 11/29/20 03:00 Neutrophils % (Manual) 97 % (39-76) H 11/29/20 03:00 Band Neutrophils % 6 % (0-10) 11/25/20 06:30 Lymphocytes % (Manual) 1 % (13-43) L 11/29/20 03:00 Monocytes % (Manual) 2 % (4-9) L 11/29/20 03:00 Metamyelocytes % 2 11/25/20 06:30 Myelocytes % 1 11/25/20 06:30 Plt Morphology Comment Normal (NORMAL) 11/29/20 03:00 RBC Morphology Normal (NORMAL) 11/29/20 03:00 [place] Cells Slight A 11/28/20 06:19 PT 14.9 SECONDS (11.8-14.3) 11/24/20 21:00 INR Target Range - 11/24/20 21:00 INR 1.23 (0.8-1.3) 11/24/20 21:00 APTT 84.0 SECONDS (22.9-36.5) H 11/29/20 16:16 PTT Comment - 11/29/20 16:16 D-Dimer 1.39 ug/ml (0.0-0.57) H* 11/24/20 11:00 Sample Site Rr 11/28/20 05:00 ABG pH 7.420 (7.35-7.45) 11/28/20 05:00 ABG pCO2 46.0 mmHg (35.0-45.0) H 11/28/20 05:00 ABG pO2 43.0 mmHg (80.0-100.0) L* 11/28/20 05:00 ABG HCO3 29.8 mmol/L (22-26) H 11/28/20 05:00 ABG O2 Saturation 80.0 % (90-100) L* 11/28/20 05:00 ABG Base Excess 4.6 mmol/L (-2.0-2.0) H 11/28/20 05:00 Gregory Test Pos 11/28/20 05:00 A-a Gradient 128.0 mmHg 11/28/20 05:00 FiO2 32.0 11/28/20 05:00 Blood Gas Comments Sofia well sw 11/28/20 05:00 Sodium 147 mmol/L (136-145) H 11/29/20 03:00 Corrected Sodium 152 mmol/L (136-145) H 11/29/20 03:00 Potassium 3.4 mmol/L (3.5-5.1) L 11/29/20 03:00 Chloride 103 mmol/L (98-107) 11/29/20 03:00 Carbon Dioxide 28.2 mmol/L (21-32) 11/29/20 03:00 BUN 42 mg/dL (7-18) H 11/29/20 03:00 Creatinine 1.25 mg/dL (0.70-1.30) 11/29/20 03:00 Est GFR (MDRD) Af Amer > 60 (>60) 11/29/20 03:00 Est GFR (MDRD) Non-Af > 60 (>60) 11/29/20 03:00 Glucose 311 mg/dL (65-99) H 11/29/20 03:00 POC Glucose (mg/dL) 350 mg/dL (65-99) H 11/29/20 16:05 Lactic Acid 1.1 mmol/L (0.4-2.0) 11/25/20 18:10 Calcium 8.2 mg/dL (8.5-10.1) L 11/29/20 03:00 Corrected Calcium 9.9 mg/dL (8.5-10.1) 11/29/20 03:00 Magnesium 2.0 mg/dL (1.7-2.9) 11/29/20 03:00 Ferritin 391 ng/mL (26-388) H 11/24/20 11:00 Total Bilirubin 1.00 mg/dL (0.2-1.0) 11/29/20 03:00 AST 25 Units/L (15-37) 11/29/20 03:00 ALT 32 Units/L (12-78) 11/29/20 03:00 Alkaline Phosphatase 50 Units/L (46-116) 11/29/20 03:00 Creatine Kinase 42 Units/L (39-308) 11/25/20 23:39 CK-MB (CK-2) < 1.0 ng/mL (0-4.0) 11/25/20 23:39 CK/CKMB % Calc 2.4 % (<4) 11/25/20 23:39 Troponin I 0.04 ng/mL (0-1.5) 11/25/20 23:39 C-Reactive Protein 78.40 mg/L (0-3.0) H 11/29/20 03:00 B-Natriuretic Peptide 184 pg/mL (0-79) H 11/24/20 11:00 Total Protein 6.3 g/dL (6.4-8.2) L 11/29/20 03:00 Albumin 1.9 g/dL (3.4-5.0) L 11/29/20 03:00 Globulin 4.4 g/dL (2.5-4.5) 11/29/20 03:00 Albumin/Globulin Ratio 0.4 Ratio (1.1-2.1) L 11/29/20 03:00 Specimen Type Catherized urine 11/24/20 18:59 Urine Color Dark yellow (YELLOW) 11/24/20 18:59 Urine Appearance Hazy (CLEAR) 11/24/20 18:59 Urine pH 5.0 (5.0 - 8.0) 11/24/20 18:59 Ur Specific [place] 1.025 (1.000-1.030) 11/24/20 18:59 Urine Protein 4+ (NEGATIVE) 11/24/20 18:59 Urine Glucose (UA) Negative (NEGATIVE) 11/24/20 18:59 Urine Ketones Negative (NEGATIVE) 11/24/20 18:59 Urine Occult Blood 4+ (NEGATIVE) 11/24/20 18:59 Urine Nitrite Negative (NEGATIVE) 11/24/20 18:59 Urine Bilirubin 1+ (NEGATIVE) 11/24/20 18:59 Urine Urobilinogen Normal (NORMAL) 11/24/20 18:59 Ur Leukocyte Esterase 1+ (NEGATIVE) 11/24/20 18:59 Urine RBC 0-2 /HPF (0-3) 11/24/20 18:59 Urine WBC 0-2 /HPF (0-5) 11/24/20 18:59 Ur Squamous Epith Cells Few /HPF (NEGATIVE) 11/24/20 18:59 Urine Bacteria Trace /HPF (NEGATIVE) 11/24/20 18:59 Ur Culture Indicated? No/not indicated 11/24/20 18:59 SARS CoV-2 RNA Rapid JASON Positive (NEGATIVE) A 11/24/20 12:42 Plan (1) COVID: Status: Acute Plan: ADMIT, COVID ISOLATION IV ATBX, IV HYDRATION CARDIAC MONITORING, HEPARIN REMDESIVIR, SOLU MEDROL VERIFY HOME MEDICATION, SUPPLEMENTAL O2, BP CONTROL, BS CONTROL (2) COPD (chronic obstructive pulmonary disease): Status: Chronic (3) Diabetes mellitus: Status: Chronic (4) Hypertension: Status: Chronic (5) GERD (gastroesophageal reflux disease): Status: Chronic (6) CAD (coronary artery disease): Status: Chronic
[2020-11-29] MEDS: SNACK - Diabetic Appropriate PO SCH (21:03)
[2020-11-29] MEDS: ZITHROMAX INJ 500 MG VIAL 500 MG in NS 250 ML IV 250 ML IV SCH (21:04)
[2020-11-29] MEDS: HEPARIN SODIUM IN D5W 25,000 UNITS/500 ML BAG IV PRN (21:08)
[2020-11-30] MEDS: NS 1000 ML 1,000 ML IV SCH (01:01)
[2020-11-30] MEDS: MORPHINE SULFATE INJ 2 MG INJ IVP PRN ×3 (03:19→17:24)
[2020-11-30 04:29] LABS: BASOPHILS % (AUTO) 0.1 % (0.2-1.0); HEMOGLOBIN 13.9 g/dL (13.5-18.0); LYMPHOCYTES # (AUTO) 0.4 X10^3/uL (1.3-2.9); LYMPHOCYTES % (AUTO) 2.9 % (21.0-51.0); MEAN CORPUSCULAR HEMOGLOBIN 30.9 pg (27.0-34.0); MEAN CORPUSCULAR HGB CONC 33.9 g/dL (33.0-35.0); MEAN CORPUSCULAR VOLUME 91.2 fL (80.0-100.0); MEAN PLATELET VOLUME 8.5 fL (7.4-11.0); MONOCYTES # (AUTO) 0.7 x10^3/uL (0.3-0.8); MONOCYTES % (AUTO) 5.1 % (0.0-13.0); NEUTROPHILS % (AUTO) 91.9 % (42.0-75.0); PLATELET COUNT 215 X10^3/uL (150.0-450.0); RED CELL DISTRIBUTION WIDTH 14.1 % (11.6-16.5); WHITE BLOOD COUNT 13.1 X10^3/uL (3.6-10.0)
[2020-11-30 04:40] LABS: ALANINE AMINOTRANSFERASE 38 Units/L (12-78); ALBUMIN 1.9 g/dL (3.4-5.0); ALKALINE PHOSPHATASE 51 Units/L (46-116); ASPARTATE AMINO TRANSFERASE 25 Units/L (15-37); BLOOD UREA NITROGEN 33 mg/dL (7-18); CALCIUM 8.1 mg/dL (8.5-10.1); CARBON DIOXIDE 35.5 mmol/L (21-32); CHLORIDE 107 mmol/L (98-107); COR CA(FOR HYPOALB) 9.8 mg/dL (8.5-10.1); COR NA(FOR HYPERGLY) 152 mmol/L (136-145); CREATININE 1.16 mg/dL (0.70-1.30); SODIUM 148 mmol/L (136-145); TOTAL PROTEIN 6.2 g/dL (6.4-8.2); eGFR NON BLACK RACES > 60 (>60)
[2020-11-30] MEDS: SOLU-Medrol 40 MG VIAL IVP SCH ×3 (05:39→22:03)
[2020-11-30] MEDS: ZOSYN VIAL 3.375 GRAMS 3.375 G in NS 100 ML IV + SPIKE MINIBAG* 100 ML IV SCH ×3 (05:39→22:33)
[2020-11-30] MEDS: HALDOL INJ IVP SCH ×3 (05:39→22:03)
[2020-11-30 06:18] LABS: PLATELET MORPHOLOGY COMMENT NORMAL (NORMAL)
[2020-11-30] MEDS ORDERED: LEXAPRO ONE (07:56)
[2020-11-30] MEDS: LEXAPRO PO SCH (08:26)
[2020-11-30] MEDS: BROVANA IN SCH ×2 (08:50→21:15)
[2020-11-30] MEDS: PULMICORT NEB TX 0.5 MG NEB SCH ×2 (08:50→21:15)
[2020-11-30] MEDS: DUONEB 0.5 MG/3 MG (3 mL) NEB SCH ×4 (08:50→21:15)
[2020-11-30] MEDS: LEVEMIR SC SCH (09:26)
[2020-11-30] MEDS: PLAVIX PO SCH (09:30)
[2020-11-30] MEDS: LOPRESSOR TAB 25 MG PO SCH ×2 (09:31→21:02)
[2020-11-30] MEDS: REMDESIVIR 100 MG in NS 100 ML IV + SPIKE MINIBAG* 120 ML IV SCH (09:32)
[2020-11-30] MEDS: HumuLIN R SC PRN ×3 (12:01→22:03)
[2020-11-30] MEDS: KLOR-CON PO PRN (12:21)
[2020-11-30] MEDS ORDERED: NS + KCL 20 MEQ/L 1,000 ML IV SCH (13:00)
--- NOTE | 2020-11-30 16:37 | PCM.PROG ---
Progress Note Progress Note for Day of Date of Exam: 11/30/20 Subjective Subjective: The patient is a 65-year-old white male with COVID-19 pneumonia and hypoxia. This morning patient is still confused and agitated. He is resting in bed comfortably and utilizing 3L nasal cannula supplemental oxygen. Labs/imaging: Wbc 13.1, Hgb 13.9, Plt 215, Na 148, K 3.1, Creatinine 1.16, Gl ucose 246, CTA chest was obtained that revealed: 1. No evidence of pulmonary embolism. 2. Multifocal lobar pneumonia. Will continue IVF NS+KCL, IV antibiotics, respiratory therapy, supplemental oxygen, corticosteroids, Remdesivir, Haldol prn, aggressive PT, and respiratory therapy. Wean/titrate oxygen as tolerated. Replete potassium per protocol. Continue monitoring and follow up labs/imaging in the morning. Past Medical Family Social History Past Med/Fam/Surg Hx: No changes since H&P Allergies: Allergies adhesive tape Allergy (Verified 12/25/19 11:53) Fish Containing Products Allergy (Verified 12/25/19 11:53) shrimp Allergy (Verified 12/25/19 11:53) Review of Systems ROS: No change since H&P Vital Signs and I&O's Vital Signs: Temperature 99.5 F Pulse Rate [Left Brachial] 108 Pulse Rate 115 Respiratory Rate 24 Blood Pressure [Left Arm] 172/98 Blood Pressure [Right Arm] 146/94 Blood Pressure 135/85 O2 Sat by Pulse Oximetry 92 Intake and Output: Intake & Output 11/27/20 11/28/20 11/29/20 11/30/20 23:59 23:59 23:59 23:59 Intake Total 1690 / 1690 2979 / 2979 2877 / 2877 987 / 987 Output Total 1775 / 1775 3150 / 3150 2100 / 2100 850 / 850 Balance -85 / -85 -171 / -171 777 / 777 137 / 137 Physical Exam Oriented: Normal Eyes: Normal Ear: Normal Nose: Normal Throat: Normal Respiratory: Diminished Cardiovascular: Normal : Normal Auscultation: Bowel Sounds: Normal Tenderness: Normal Skin: Decreased Turgur Musculoskeletal: Back:Thoracic and Back:Lumbar Psychiatric: Anxiety Mood Description: Anxious Affect: Anxious Speech Pattern: Clear Laboratory and Diagnostics Result Diagrams: 11/30/20 04:05 11/30/20 10:10 Labs: 11/25/20 18:10 Blood Blood Culture - Preliminary 11/25/20 18:10 Blood Blood Culture - Preliminary Laboratory WBC 13.1 X10^3/uL (3.6-10.0) H 11/30/20 04:05 RBC 4.50 X10^6/uL (4.7-6.0) L 11/30/20 04:05 Hgb 13.9 g/dL (13.5-18.0) 11/30/20 04:05 Hct 41.0 % (42.0-54.0) L 11/30/20 04:05 MCV 91.2 fL (80.0-100.0) 11/30/20 04:05 MCH 30.9 pg (27.0-34.0) 11/30/20 04:05 MCHC 33.9 g/dL (33.0-35.0) 11/30/20 04:05 RDW 14.1 % (11.6-16.5) 11/30/20 04:05 Plt Count 215 X10^3/uL (150.0-450.0) 11/30/20 04:05 Plt Count Comment Adequate (ADEQUATE) 11/30/20 04:05 MPV 8.5 fL (7.4-11.0) 11/30/20 04:05 Neut % (Auto) 91.9 % (42.0-75.0) H 11/30/20 04:05 Lymph % (Auto) 2.9 % (21.0-51.0) L 11/30/20 04:05 [place] % (Auto) 5.1 % (0.0-13.0) 11/30/20 04:05 Eos % (Auto) 0.0 % (0.9-2.9) L 11/30/20 04:05 Baso % (Auto) 0.1 % (0.2-1.0) L 11/30/20 04:05 Neut # (Auto) 12.0 x10^3/uL (2.2-4.8) H 11/30/20 04:05 Lymph # (Auto) 0.4 X10^3/uL (1.3-2.9) L 11/30/20 04:05 [place] # (Auto) 0.7 x10^3/uL (0.3-0.8) 11/30/20 04:05 Eos # (Auto) 0.0 x10^3/uL (0.0-0.2) 11/30/20 04:05 Baso # (Auto) 0.0 X10^3/uL (0.0-0.1) 11/30/20 04:05 Absolute Nucleated RBC 0.1 /100WBC 11/30/20 04:05 Total Counted 100 11/30/20 04:05 Neutrophils % (Manual) 93 % (39-76) H 11/30/20 04:05 Band Neutrophils % 6 % (0-10) 11/25/20 06:30 Lymphocytes % (Manual) 3 % (13-43) L 11/30/20 04:05 Monocytes % (Manual) 4 % (4-9) 11/30/20 04:05 Metamyelocytes % 2 11/25/20 06:30 Myelocytes % 1 11/25/20 06:30 Plt Morphology Comment Normal (NORMAL) 11/30/20 04:05 RBC Morphology Normal (NORMAL) 11/30/20 04:05 [place] Cells Slight A 11/28/20 06:19 PT 14.9 SECONDS (11.8-14.3) 11/24/20 21:00 INR Target Range - 11/24/20 21:00 INR 1.23 (0.8-1.3) 11/24/20 21:00 APTT 85.1 SECONDS (22.9-36.5) H 11/30/20 16:04 PTT Comment - 11/30/20 16:04 D-Dimer 1.39 ug/ml (0.0-0.57) H* 11/24/20 11:00 Sample Site Rr 11/28/20 05:00 ABG pH 7.420 (7.35-7.45) 11/28/20 05:00 ABG pCO2 46.0 mmHg (35.0-45.0) H 11/28/20 05:00 ABG pO2 43.0 mmHg (80.0-100.0) L* 11/28/20 05:00 ABG HCO3 29.8 mmol/L (22-26) H 11/28/20 05:00 ABG O2 Saturation 80.0 % (90-100) L* 11/28/20 05:00 ABG Base Excess 4.6 mmol/L (-2.0-2.0) H 11/28/20 05:00 Gregory Test Pos 11/28/20 05:00 A-a Gradient 128.0 mmHg 11/28/20 05:00 FiO2 32.0 11/28/20 05:00 Blood Gas Comments Sofia well sw 11/28/20 05:00 Sodium 148 mmol/L (136-145) H 11/30/20 04:05 Corrected Sodium 152 mmol/L (136-145) H 11/30/20 04:05 Potassium 3.6 mmol/L (3.5-5.1) 11/30/20 10:10 Chloride 107 mmol/L (98-107) 11/30/20 04:05 Carbon Dioxide 35.5 mmol/L (21-32) H 11/30/20 04:05 BUN 33 mg/dL (7-18) H 11/30/20 04:05 Creatinine 1.16 mg/dL (0.70-1.30) 11/30/20 04:05 Est GFR (MDRD) Af Amer > 60 (>60) 11/30/20 04:05 Est GFR (MDRD) Non-Af > 60 (>60) 11/30/20 04:05 Glucose 246 mg/dL (65-99) H 11/30/20 04:05 POC Glucose (mg/dL) 363 mg/dL (65-99) H 11/30/20 11:26 Lactic Acid 1.1 mmol/L (0.4-2.0) 11/25/20 18:10 Calcium 8.1 mg/dL (8.5-10.1) L 11/30/20 04:05 Corrected Calcium 9.8 mg/dL (8.5-10.1) 11/30/20 04:05 Magnesium 2.0 mg/dL (1.7-2.9) 11/29/20 03:00 Ferritin 391 ng/mL (26-388) H 11/24/20 11:00 Total Bilirubin 0.90 mg/dL (0.2-1.0) 11/30/20 04:05 AST 25 Units/L (15-37) 11/30/20 04:05 ALT 38 Units/L (12-78) 11/30/20 04:05 Alkaline Phosphatase 51 Units/L (46-116) 11/30/20 04:05 Creatine Kinase 42 Units/L (39-308) 11/25/20 23:39 CK-MB (CK-2) < 1.0 ng/mL (0-4.0) 11/25/20 23:39 CK/CKMB % Calc 2.4 % (<4) 11/25/20 23:39 Troponin I 0.04 ng/mL (0-1.5) 11/25/20 23:39 C-Reactive Protein 78.40 mg/L (0-3.0) H 11/29/20 03:00 B-Natriuretic Peptide 184 pg/mL (0-79) H 11/24/20 11:00 Total Protein 6.2 g/dL (6.4-8.2) L 11/30/20 04:05 Albumin 1.9 g/dL (3.4-5.0) L 11/30/20 04:05 Globulin 4.3 g/dL (2.5-4.5) 11/30/20 04:05 Albumin/Globulin Ratio 0.4 Ratio (1.1-2.1) L 11/30/20 04:05 Specimen Type Catherized urine 11/24/20 18:59 Urine Color Dark yellow (YELLOW) 11/24/20 18:59 Urine Appearance Hazy (CLEAR) 11/24/20 18:59 Urine pH 5.0 (5.0 - 8.0) 11/24/20 18:59 Ur Specific [place] 1.025 (1.000-1.030) 11/24/20 18:59 Urine Protein 4+ (NEGATIVE) 11/24/20 18:59 Urine Glucose (UA) Negative (NEGATIVE) 11/24/20 18:59 Urine Ketones Negative (NEGATIVE) 11/24/20 18:59 Urine Occult Blood 4+ (NEGATIVE) 11/24/20 18:59 Urine Nitrite Negative (NEGATIVE) 11/24/20 18:59 Urine Bilirubin 1+ (NEGATIVE) 11/24/20 18:59 Urine Urobilinogen Normal (NORMAL) 11/24/20 18:59 Ur Leukocyte Esterase 1+ (NEGATIVE) 11/24/20 18:59 Urine RBC 0-2 /HPF (0-3) 11/24/20 18:59 Urine WBC 0-2 /HPF (0-5) 11/24/20 18:59 Ur Squamous Epith Cells Few /HPF (NEGATIVE) 11/24/20 18:59 Urine Bacteria Trace /HPF (NEGATIVE) 11/24/20 18:59 Ur Culture Indicated? No/not indicated 11/24/20 18:59 SARS CoV-2 RNA Rapid JASON Positive (NEGATIVE) A 11/24/20 12:42 Plan (1) COVID: Status: Acute Plan: ADMIT, COVID ISOLATION IV ATBX, IV HYDRATION CARDIAC MONITORING, HEPARIN REMDESIVIR, SOLU MEDROL VERIFY HOME MEDICATION, SUPPLEMENTAL O2, BP CONTROL, BS CONTROL (2) COPD (chronic obstructive pulmonary disease): Status: Chronic (3) Diabetes mellitus: Status: Chronic (4) Hypertension: Status: Chronic (5) GERD (gastroesophageal reflux disease): Status: Chronic (6) CAD (coronary artery disease): Status: Chronic
[2020-11-30] MEDS: ZITHROMAX INJ 500 MG VIAL 500 MG in NS 250 ML IV 250 ML IV SCH (21:00)
[2020-11-30] MEDS: SNACK - Diabetic Appropriate PO SCH (22:01)
[2020-12-01] MEDS: SOLU-Medrol 40 MG VIAL IVP SCH ×3 (05:06→21:34)
[2020-12-01] MEDS: ZOSYN VIAL 3.375 GRAMS 3.375 G in NS 100 ML IV + SPIKE MINIBAG* 100 ML IV SCH ×3 (05:06→21:55)
[2020-12-01] MEDS: HEPARIN SODIUM IN D5W 25,000 UNITS/500 ML BAG IV PRN (05:10)
[2020-12-01] MEDS: HumuLIN R SC PRN ×4 (05:32→21:35)
[2020-12-01] MEDS: HALDOL INJ IVP SCH ×3 (05:57→21:34)
[2020-12-01 06:20] LABS: BASOPHILS # (AUTO) 0.1 X10^3/uL (0.0-0.1); BASOPHILS % (AUTO) 0.8 % (0.2-1.0); HEMATOCRIT 41.9 % (42.0-54.0); LYMPHOCYTES # (AUTO) 0.3 X10^3/uL (1.3-2.9); MEAN CORPUSCULAR HEMOGLOBIN 30.9 pg (27.0-34.0); MEAN CORPUSCULAR HGB CONC 33.5 g/dL (33.0-35.0); MEAN CORPUSCULAR VOLUME 92.4 fL (80.0-100.0); MEAN PLATELET VOLUME 8.7 fL (7.4-11.0); MONOCYTES # (AUTO) 0.4 x10^3/uL (0.3-0.8); MONOCYTES % (AUTO) 2.6 % (0.0-13.0); NEUTROPHILS # (AUTO) 16.3 x10^3/uL (2.2-4.8); NEUTROPHILS % (AUTO) 94.6 % (42.0-75.0); PLATELET COUNT 217 X10^3/uL (150.0-450.0); RED BLOOD COUNT 4.54 X10^6/uL (4.7-6.0); WHITE BLOOD COUNT 17.2 X10^3/uL (3.6-10.0)
[2020-12-01 07:04] LABS: ALANINE AMINOTRANSFERASE 36 Units/L (12-78); ALKALINE PHOSPHATASE 54 Units/L (46-116); ASPARTATE AMINO TRANSFERASE 19 Units/L (15-37); BLOOD UREA NITROGEN 33 mg/dL (7-18); CALCIUM 8.1 mg/dL (8.5-10.1); CARBON DIOXIDE 36.8 mmol/L (21-32); CHLORIDE 109 mmol/L (98-107); COR CA(FOR HYPOALB) 9.7 mg/dL (8.5-10.1); COR NA(FOR HYPERGLY) 153 mmol/L (136-145); CREATININE 1.08 mg/dL (0.70-1.30); SODIUM 149 mmol/L (136-145); TOTAL PROTEIN 6.2 g/dL (6.4-8.2); eGFR NON BLACK RACES > 60 (>60)
[2020-12-01 07:10] LABS: BAND NEUTROPHILS % 1 % (0-10); PLATELET MORPHOLOGY COMMENT NORMAL (NORMAL)
[2020-12-01 07:12] LABS: BURR CELLS SLIGHT
[2020-12-01] MEDS: BROVANA IN SCH ×2 (08:32→20:24)
[2020-12-01] MEDS: PULMICORT NEB TX 0.5 MG NEB SCH ×2 (08:32→20:24)
[2020-12-01] MEDS: DUONEB 0.5 MG/3 MG (3 mL) NEB SCH ×4 (08:32→20:24)
[2020-12-01] MEDS ORDERED: LEXAPRO ONE (10:22)
[2020-12-01] MEDS: LEVEMIR SC SCH (10:28)
[2020-12-01] MEDS: PLAVIX PO SCH (10:30)
[2020-12-01] MEDS: LOPRESSOR TAB 25 MG PO SCH ×2 (10:30→21:33)
[2020-12-01] MEDS: LEXAPRO PO SCH (10:31)
[2020-12-01] MEDS: REMDESIVIR 100 MG in NS 100 ML IV + SPIKE MINIBAG* 120 ML IV SCH (10:31)
[2020-12-01 10:51] LABS: ABG BASE EXCESS 14.3 mmol/L (-2.0-2.0)
[2020-12-01 10:52] LABS: ABG ALLEN TEST POS; ABG HCO3 42.4 mmol/L (22-26)
--- NOTE | 2020-12-01 11:08 | RAD ---
HISTORYFollow up pneumoniaSTUDYPortable AP [id number] normal heart size. Interval increase in airspace process in the left perihilar area and right base. A peripheral lucent line adjacent to the left upper lobe may represent skin fold artifact rather than pneumothorax.IMPRESSIONInterval progression of bilateral pneumonia especially severe right lower lobe. Probable skinfold artifact left upper chest although follow-up recommended to exclude developing pneumothorax.Electronically signed by: TERRY SIFUENTES (Dec 01, 2020 11:06:18)
[2020-12-01] MEDS ORDERED: COLACE CAP 100 MG PO PRN (19:16)
[2020-12-01] MEDS ORDERED: MILK OF MAGNESIA PO PRN (19:16)
[2020-12-01 20:41] VITALS: BMI 26.9
[2020-12-01] MEDS: SNACK - Diabetic Appropriate PO SCH (21:33)
[2020-12-01] MEDS: ZITHROMAX INJ 500 MG VIAL 500 MG in NS 250 ML IV 250 ML IV SCH (21:33)
--- NOTE | 2020-12-01 22:09 | PCM.PROG ---
Progress Note Progress Note for Day of Date of Exam: 12/01/20 Subjective Subjective: The patient is a 65-year-old white male with COVID-19 pneumonia and hypoxia. Overnight patient had acute worsening of symptoms and dyspnea. He is currently utilizing BIPAP with FiO2 of 60%. Labs/imaging: Wbc 17.2, Hgb 14, Plt 217, Na 149, K 4.0, Creatinine 1.08, Glucose 271, CXR: Interval progression of bilateral pneumonia especially severe right lower lobe. Probable skinfold artifact left upper chest although follow-up recommended to exclude developing pneumothorax. ABG: pH 7.39, pCO2 70, pO2 61, HCO3 42, O2 saturations 91% on FiO2 60% BiPAP. Adjusted BiPAP settings with RT. Continue IVF NS+KCL, Antibiotics: IV Doxycycline 100mg BID, respiratory therapy, supplemental oxygen, cortico steroids, Remdesivir, Haldol prn, aggressive PT, and respiratory therapy. Repeat CXR in the morning. Add doxycycline. Wean/titrate oxygen as tolerated. Continue monitoring and follow up labs/imaging in the morning. Time spent on clinical assessment, reviewing labs and imaging, decision making, and documentation greater than 45 minutes. Past Medical Family Social History Past Med/Fam/Surg Hx: No changes since H&P Allergies: Allergies adhesive tape Allergy (Verified 12/25/19 11:53) Fish Containing Products Allergy (Verified 12/25/19 11:53) shrimp Allergy (Verified 12/25/19 11:53) Review of Systems ROS: No change since H&P Vital Signs and I&O's Vital Signs: Temperature 98.8 F Pulse Rate [Left Brachial] 114 Pulse Rate 110 Respiratory Rate 22 Blood Pressure [Left Arm] 172/98 Blood Pressure [Right Arm] 153/97 Blood Pressure 135/85 O2 Sat by Pulse Oximetry 90 Intake and Output: Intake & Output 11/28/20 11/29/20 11/30/20 12/01/20 23:59 23:59 23:59 23:59 Intake Total 2979 / 2979 2877 / 2877 2110 / 2110 Output Total 3150 / 3150 2099 / 2099 1250 / 1250 500 / 500 Balance -171 / -171 777 / 777 861 / 861 1491 / 1491 Physical Exam Oriented: Normal Eyes: Normal Ear: Normal Nose: Normal Throat: Normal Respiratory: Diminished Cardiovascular: Normal : Normal Auscultation: Bowel Sounds: Normal Tenderness: Normal Skin: Decreased [place] Musculoskeletal: Back:Thoracic and Back:Lumbar Psychiatric: Anxiety Mood Description: Anxious Affect: Anxious Speech Pattern: Clear Laboratory and Diagnostics Result Diagrams: 12/01/20 05:58 12/01/20 20:00 Labs: 11/25/20 18:10 Blood Blood Culture - Final 11/25/20 18:10 Blood Blood Culture - Final Laboratory WBC 17.2 X10^3/uL (3.6-10.0) H 12/01/20 05:58 RBC 4.54 X10^6/uL (4.7-6.0) L 12/01/20 05:58 Hgb 14.0 g/dL (13.5-18.0) 12/01/20 05:58 Hct 41.9 % (42.0-54.0) L 12/01/20 05:58 MCV 92.4 fL (80.0-100.0) 12/01/20 05:58 MCH 30.9 pg (27.0-34.0) 12/01/20 05:58 MCHC 33.5 g/dL (33.0-35.0) 12/01/20 05:58 RDW 14.0 % (11.6-16.5) 12/01/20 05:58 Plt Count 217 X10^3/uL (150.0-450.0) 12/01/20 05:58 Plt Count Comment Adequate (ADEQUATE) 12/01/20 05:58 MPV 8.7 fL (7.4-11.0) 12/01/20 05:58 Neut % (Auto) 94.6 % (42.0-75.0) H 12/01/20 05:58 Lymph % (Auto) 2.0 % (21.0-51.0) L 12/01/20 05:58 [place] % (Auto) 2.6 % (0.0-13.0) 12/01/20 05:58 Eos % (Auto) 0.0 % (0.9-2.9) L 12/01/20 05:58 Baso % (Auto) 0.8 % (0.2-1.0) 12/01/20 05:58 Neut # (Auto) 16.3 x10^3/uL (2.2-4.8) H 12/01/20 05:58 Lymph # (Auto) 0.3 X10^3/uL (1.3-2.9) L 12/01/20 05:58 [place] # (Auto) 0.4 x10^3/uL (0.3-0.8) 12/01/20 05:58 Eos # (Auto) 0.0 x10^3/uL (0.0-0.2) 12/01/20 05:58 Baso # (Auto) 0.1 X10^3/uL (0.0-0.1) 12/01/20 05:58 Absolute Nucleated RBC 0.0 /100WBC 12/01/20 05:58 Total Counted 100 12/01/20 05:58 Neutrophils % (Manual) 93 % (39-76) H 12/01/20 05:58 Band Neutrophils % 1 % (0-10) 12/01/20 05:58 Lymphocytes % (Manual) 5 % (13-43) L 12/01/20 05:58 Monocytes % (Manual) 1 % (4-9) L 12/01/20 05:58 Metamyelocytes % 2 11/25/20 06:30 Myelocytes % 1 11/25/20 06:30 Plt Morphology Comment Normal (NORMAL) 12/01/20 05:58 RBC Morphology Abnormal (NORMAL) 12/01/20 05:58 [place] Cells Slight A 12/01/20 05:58 PT 14.9 SECONDS (11.8-14.3) 11/24/20 21:00 INR Target Range - 11/24/20 21:00 INR 1.23 (0.8-1.3) 11/24/20 21:00 APTT 80.0 SECONDS (22.9-36.5) H 12/01/20 05:58 PTT Comment - 12/01/20 05:58 D-Dimer 1.39 ug/ml (0.0-0.57) H* 11/24/20 11:00 Sample Site [place] 12/01/20 10:44 ABG pH 7.390 (7.35-7.45) 12/01/20 10:44 ABG pCO2 70.0 mmHg (35.0-45.0) H* 12/01/20 10:44 ABG pO2 61.0 mmHg (80.0-100.0) L 12/01/20 10:44 ABG HCO3 42.4 mmol/L (22-26) H* 12/01/20 10:44 ABG O2 Saturation 91.0 % (90-100) 12/01/20 10:44 ABG Base Excess 14.3 mmol/L (-2.0-2.0) H 12/01/20 10:44 Gregory Test Pos 12/01/20 10:44 A-a Gradient 279.0 mmHg 12/01/20 10:44 FiO2 60.0 12/01/20 10:44 Blood Gas Comments Pt lee well elj 12/01/20 10:44 Sodium 149 mmol/L (136-145) H 12/01/20 05:58 Corrected Sodium 153 mmol/L (136-145) H 12/01/20 05:58 Potassium 4.0 mmol/L (3.5-5.1) 12/01/20 05:58 Chloride 109 mmol/L (98-107) H 12/01/20 05:58 Carbon Dioxide 36.8 mmol/L (21-32) H 12/01/20 05:58 BUN 33 mg/dL (7-18) H 12/01/20 05:58 Creatinine 1.08 mg/dL (0.70-1.30) 12/01/20 05:58 Est GFR (MDRD) Af Amer > 60 (>60) 12/01/20 05:58 Est GFR (MDRD) Non-Af > 60 (>60) 12/01/20 05:58 Glucose 405 mg/dL (65-99) H 12/01/20 20:00 POC Glucose (mg/dL) 404 mg/dL (65-99) H 12/01/20 19:23 Lactic Acid 1.1 mmol/L (0.4-2.0) 11/25/20 18:10 Calcium 8.1 mg/dL (8.5-10.1) L 12/01/20 05:58 Corrected Calcium 9.7 mg/dL (8.5-10.1) 12/01/20 05:58 Magnesium 2.0 mg/dL (1.7-2.9) 11/29/20 03:00 Ferritin 391 ng/mL (26-388) H 11/24/20 11:00 Total Bilirubin 0.70 mg/dL (0.2-1.0) 12/01/20 05:58 AST 19 Units/L (15-37) 12/01/20 05:58 ALT 36 Units/L (12-78) 12/01/20 05:58 Alkaline Phosphatase 54 Units/L (46-116) 12/01/20 05:58 Creatine Kinase 42 Units/L (39-308) 11/25/20 23:39 CK-MB (CK-2) < 1.0 ng/mL (0-4.0) 11/25/20 23:39 CK/CKMB % Calc 2.4 % (<4) 11/25/20 23:39 Troponin I 0.04 ng/mL (0-1.5) 11/25/20 23:39 C-Reactive Protein 78.40 mg/L (0-3.0) H 11/29/20 03:00 B-Natriuretic Peptide 184 pg/mL (0-79) H 11/24/20 11:00 Total Protein 6.2 g/dL (6.4-8.2) L 12/01/20 05:58 Albumin 2.0 g/dL (3.4-5.0) L 12/01/20 05:58 Globulin 4.2 g/dL (2.5-4.5) 12/01/20 05:58 Albumin/Globulin Ratio 0.5 Ratio (1.1-2.1) L 12/01/20 05:58 Specimen Type Catherized urine 11/24/20 18:59 Urine Color Dark yellow (YELLOW) 11/24/20 18:59 Urine Appearance Hazy (CLEAR) 11/24/20 18:59 Urine pH 5.0 (5.0 - 8.0) 11/24/20 18:59 Ur Specific [place] 1.025 (1.000-1.030) 11/24/20 18:59 Urine Protein 4+ (NEGATIVE) 11/24/20 18:59 Urine Glucose (UA) Negative (NEGATIVE) 11/24/20 18:59 Urine Ketones Negative (NEGATIVE) 11/24/20 18:59 Urine Occult Blood 4+ (NEGATIVE) 11/24/20 18:59 Urine Nitrite Negative (NEGATIVE) 11/24/20 18:59 Urine Bilirubin 1+ (NEGATIVE) 11/24/20 18:59 Urine Urobilinogen Normal (NORMAL) 11/24/20 18:59 Ur Leukocyte Esterase 1+ (NEGATIVE) 11/24/20 18:59 Urine RBC 0-2 /HPF (0-3) 11/24/20 18:59 Urine WBC 0-2 /HPF (0-5) 11/24/20 18:59 Ur Squamous Epith Cells Few /HPF (NEGATIVE) 11/24/20 18:59 Urine Bacteria Trace /HPF (NEGATIVE) 11/24/20 18:59 Ur Culture Indicated? No/not indicated 11/24/20 18:59 SARS CoV-2 RNA Rapid JASON Positive (NEGATIVE) A 11/24/20 12:42 Plan (1) COVID: Status: Acute Plan: ADMIT, COVID ISOLATION IV ATBX, IV HYDRATION CARDIAC MONITORING, HEPARIN REMDESIVIR, SOLU MEDROL VERIFY HOME MEDICATION, SUPPLEMENTAL O2, BP CONTROL, BS CONTROL (2) COPD (chronic obstructive pulmonary disease): Status: Chronic (3) Diabetes mellitus: Status: Chronic (4) Hypertension: Status: Chronic (5) GERD (gastroesophageal reflux disease): Status: Chronic (6) CAD (coronary artery disease): Status: Chronic
[2020-12-01] MEDS ORDERED: SOLU-Medrol 40 MG VIAL IVP SCH (23:00)
[2020-12-02] MEDS ORDERED: NS 1000 ML 1,000 ML ONE (03:15)
--- NOTE | 2020-12-02 03:30 | RAD ---
HISTORYDIMINISHED BREATH SOUNDS HX: [place], HTN, ASTHMA, COPD, EMPHYSEMA, DM SX: STENTS, CABGSTUDYCHEST, 1 [id number]/06/2021 a aFINDINGSThe trachea is midline. The cardiac silhouette is unremarkable. Changes of prior CABG surgery. Atelectasis and/or consolidation involving the medial the right lower lobe. The left lung is clear. No pneumothorax.. The bony thorax is unremarkable.IMPRESSIONAtelectasis and/or consolidation involving the right lower lobe.Electronically signed by: Ramiro Petersen (Dec 02, 2020 03:28:26)
[2020-12-02] MEDS ORDERED: DIPRIVAN ONE (03:50)
[2020-12-02] MEDS ORDERED: AMIDATE INJ 40 MG VIAL ONE (03:53)
[2020-12-02] MEDS ORDERED: ZEMURON 50 MG VIAL ONE (03:53)
[2020-12-02] MEDS ORDERED: ADRENALINE CHL INJ IVP ONE (04:20)
--- NOTE | 2020-12-02 04:40 | DR.UPDATE ---
H&P Update History and Physical Update: History and Physical reviewed and patient examined. Changes noted: NO Yes with the following:will intubate as ordered by physician H&P Reviewed: Yes Patient was examined?: Yes Procedures (ALL) - Intubation Time out performed: Yes Sedative: etomidate Mg given: 16 paralytic: rocuronium (50mg) Laryngoscope: fiber optic video scope (glidescope3 x 1 attempt, cords visualized after suction of brown liquid from OP.) ET tube size: 8 Tube secured depth: 22 Tube secured location: teeth Tube placement confirmation: visualized tube passing through cords, equal breath sounds bilaterally, no breath sounds over epigastrium, comfirmation by capnometer Patient tolerated procedure: No (see code record) Intubation complications: other (a-fib prior and noted after intubation on telemetry. unable to obtain pulse prior to CVL placement. see code record. )
[2020-12-02 04:46] LABS: ABG ALLEN TEST POS; ABG PCO2 > 115.0 mmHg (35.0-45.0)
[2020-12-02 06:15] VITALS: BP 90/50
[2020-12-02] MEDS ORDERED: LEVEMIR SC SCH (09:00)
[2020-12-02] MEDS ORDERED: VIBRAMYCIN 100 MG in D5W 250 ML IV 250 ML IV SCH (09:00)
== END 2020-12-02 11:50 | disposition expired | DRG 177 ==
LOC: ER 10:43 → MED/SURG 16:59
PROVIDERS: ADMIT Internal Medicine; ATTEND Internal Medicine
DX: J12.82 Pneumonia due to coronavirus disease 2019; J44.9 Chronic obstructive pulmonary disease, unspecified; R79.82 Elevated C-reactive protein (CRP); R06.02 Shortness of breath; J96.01 Acute respiratory failure with hypoxia; U07.1 COVID-19; M54.5 Low back pain; R94.31 Abnormal electrocardiogram [ECG] [EKG]; Z78.1 Physical restraint status; R26.89 Other abnormalities of gait and mobility; R79.89 Other specified abnormal findings of blood chemistry; I46.9 Cardiac arrest, cause unspecified; I10 Essential (primary) hypertension; I25.10 Atherosclerotic heart disease of native coronary artery without angina pectoris; K21.9 Gastro-esophageal reflux disease without esophagitis; F05 Delirium due to known physiological condition; I87.2 Venous insufficiency (chronic) (peripheral)